=== PATIENT | female | born 1960 | race Caucasian/White ===

== ENCOUNTER → 2020-01-05 11:50 | Outpatient (BNVA) | payer MEDICARE, OTHER, SELFPAY | PROVIDERS: Family Provider Nurse Practitioner; PCP Nurse Practitioner; Visit Provider Nurse Practitioner | DX: E11.65 Type 2 diabetes mellitus with hyperglycemia (principal); Z79.4 Long term (current) use of insulin; M10.9 Gout, unspecified; G47.33 Obstructive sleep apnea (adult) (pediatric) | CPT/HCPCS: 80053; 81003; 83036; 84550 ==

== ENCOUNTER 2020-01-21 20:00 | Outpatient (CLI) | payer MEDICARE, OTHER, SELFPAY | END 2020-01-21 20:01 | disposition home or self-care (01) | LOC: SLEEP 01-22 09:19 | PROVIDERS: Family Provider Nurse Practitioner; PCP Nurse Practitioner; Visit Provider Nurse Practitioner | DX: G47.33 Obstructive sleep apnea (adult) (pediatric) (principal) | CPT/HCPCS: 95810; 95811 ==

== ENCOUNTER 2020-03-21 09:30 | Outpatient (CLI) | payer MEDICARE, OTHER, SELFPAY ==
--- NOTE | 2020-03-21 09:43 | USCV_ITS ---
Deneen Anaya Age: 59 Gender: F : 1960 Exam Date: 03/21/2020 09:37 Ordering Phys: Fabricio Singleton MD ([email or web address]) Technologist: Liset Tariq Exam Location: [facility] [place] Indication: STENOSIS Risk Factors: Previous Vascular Surgery: Right Brachial BP: / Left Brachial BP: / Right Left Velocity (cm/s) Spectral Plaque Velocity (cm/s) Spectral Plaque Syst/Diast Broadening Syst/Diast Broadening 100.30/20.90 Prox CCA 93.70 / 18.70 102.50/27.60 Mid CCA 102.50/ 17.60 88.20/ 26.50 Distal CCA 87.10 / 22.10 71.70/ 22.10 Prox ICA 100.30/ 25.40 90.40/ 30.90 Mid ICA 115.80/ 34.20 69.50/ 27.60 Distal ICA 141.10/ 35.30 130.10 ECA 105.80 0.88 ICA/CCA 1.38 Antegrade Vertebral Antegrade 52.90/ 20.90 cm/s 59.50/ 14.30 cm/s Tri Subclavian Tri 180.2 202.0 0 0 FINDINGS Intimal thickening in the common carotid and internal carotid arteries bilaterally. Normal Doppler flow velocities. Moderate to heavy heterogeneous plaques at the left bifurcation and internal carotid artery Intimal thickening and minimal plaques at the right bifurcation and internal carotid artery CONCLUSIONS Moderate to heavy heterogeneous plaques at the left bifurcation and internal carotid artery with a velocity elevation consistent with a 16 to 49% stenosis Intimal thickening and minimal plaque in the right ICA and bifurcation. Dr Emely Carlson MD FAC (Electronically Signed) Final Date: 21 Mar 2020 17:58 S
== END 2020-03-21 09:31 | disposition home or self-care (01) ==
LOC: RAD 09:34
PROVIDERS: Family Provider Nurse Practitioner; PCP Nurse Practitioner; Visit Provider Internal Medicine Cardiovascular Disease
DX: I65.23 Occlusion and stenosis of bilateral carotid arteries (principal)
CPT/HCPCS: 93880

== ENCOUNTER 2020-03-31 08:27 | Outpatient (CLI) | payer MEDICARE, OTHER, SELFPAY ==
[2020-03-31 09:13] LABS: Add Urine Microscopic? NO
[2020-03-31 09:38] LABS: Alanine Aminotransferase 54 U/L (0-33); Albumin Level 4.6 g/dL (3.5-5.2); Alkaline Phosphatase 86 IU/L (35-105); Anion Gap 17.1 (5-19); Aspartate Amino Transferase 71 U/L (0-32); Blood Urea Nitrogen 12 mg/dL (6-20); Calcium 9.6 mg/dL (8.5-10.5); Carbon Dioxide 29 mmol/L (22-29); Chloride 99 mmol/L (98-107); Globulin 3.2 g/dL (1.3-4.6); Glomerular Filtration Rate 73.9 mL/min (90-130); Glucose 203 mg/dL (65-115); Osmolality Calculated 292 mOsm/kg (285-295); Potassium 5.1 mmol/L (3.5-5.1); Sodium 140 mmol/L (136-145); Total Bilirubin 0.3 mg/dL (0.15-1.2); Total Protein 7.8 g/dL (6.6-8.7)
[2020-03-31 09:39] LABS: Bilirubin Urine Neg (NEGATIVE); Blood Urine Neg (Negative); Glucose Urine UA Norm (Normal); Ketones Urine Negative (Negative); Leukocyte Esterase Urine Negative (Negative); Nitrate Urine Negative (Negative); Protein Urine Neg (Negative); Urine Appearance Clear (CLEAR); Urine Color Yellow (Yellow); Urobilinogen Urine Norm (Negative)
[2020-03-31 09:40] LABS: Estmated Average Glucose 226; Hemoglobin A1C 9.5 % (4.0-6.0)
[2020-03-31 09:51] LABS: Creatinine Urine, Random 110 mg/dL (28-217); Microalbumin Random Urine 5 ug/dL (0-20)
[2020-03-31 10:01] LABS: Microalbum Creatinine Ratio Ur 45 mg/dL (0-20)
== END 2020-03-31 08:28 | disposition home or self-care (01) ==
LOC: LAB 08:34
PROVIDERS: Family Provider Nurse Practitioner; PCP Nurse Practitioner; Visit Provider Nurse Practitioner
DX: E11.65 Type 2 diabetes mellitus with hyperglycemia (principal); Z79.4 Long term (current) use of insulin
CPT/HCPCS: 80053; 81003; 82044; 83036

== ENCOUNTER → 2020-04-04 11:49 | Outpatient (BNVA) | payer MEDICARE, OTHER, SELFPAY | PROVIDERS: Family Provider Nurse Practitioner; PCP Nurse Practitioner; Visit Provider Nurse Practitioner | DX: I10 Essential (primary) hypertension (principal); E11.65 Type 2 diabetes mellitus with hyperglycemia; Z79.4 Long term (current) use of insulin; M54.16 Radiculopathy, lumbar region; M10.371 Gout due to renal impairment, right ankle and foot | CPT/HCPCS: 71046; 82150; 83690 ==

== ENCOUNTER 2020-05-08 16:11 | Emergency (ER) | payer MEDICARE, OTHER, SELFPAY ==
[2020-05-08] VITALS (7 sets, daily range): BP systolic 129–146; BP diastolic 59–84; PULSE 69–80; RESP 10–18; TEMP 36.1; O2SAT 92–135; BMI 31.6
--- NOTE | 2020-05-08 16:37 | CTR_ITS ---
PROCEDURE INFORMATION: Exam: CT Angiography Chest With Contrast Exam date and time: 05/08/2020 4:56 PM Age: 59 years old Clinical indication: Chest pain; Type not specified; Additional info: Pe TECHNIQUE: Imaging protocol: Computed tomographic angiography of the chest with intravenous contrast. 3D rendering: MIP and/or 3D reconstructed images were created by the technologist. Radiation optimization: All CT scans at this facility use at least one of these dose optimization techniques: automated exposure control; mA and/or kV adjustment per patient size (includes targeted exams where dose is matched to clinical indication); or iterative reconstruction. Contrast material: OMNI 350; Contrast volume: 95 ml; Contrast route: INTRAVENOUS (IV); COMPARISON: CR (CHEST, ) 05/08/2020 4:52 PM RADIATION DOSE METRICS: Total DLP (mGy-cm): 626.44 FINDINGS: Pulmonary arteries: Normal. No pulmonary emboli. Aorta: Unremarkable. No aortic aneurysm. No aortic dissection. Lungs: Unremarkable. No consolidation. No masses. There are mild emphysematous changes. Pleural space: Unremarkable. No pneumothorax. No pleural effusion. Heart: Unremarkable. No cardiomegaly. No pericardial effusion. Lymph nodes: Unremarkable. No enlarged lymph nodes. Liver: There is fatty infiltration liver. Bones/joints: Unremarkable. No acute fracture. Soft tissues: Unremarkable. CT/CT angio chest PE protcl [id number] IMPRESSION: No acute findings. Radiation Dose CTDIVOL = (mGy): DLP = 626.44 (mGy-cm)
--- NOTE | 2020-05-08 16:37 | XRR_ITS ---
PROCEDURE INFORMATION: Exam: XR Chest, 1 View Exam date and time: 05/08/2020 4:39 PM Age: 59 years old Clinical indication: Dyspnea; Additional info: Cp TECHNIQUE: Imaging protocol: XR of the chest Views: 1 view. COMPARISON: No relevant prior studies available. FINDINGS: Lungs: There is increased density in the left lung base compatible with atelectasis versus pneumonic infiltrate. The right lung is clear. The vascularity is within normal limits. There is scattered calcified granulomata. Pleural space: There is trace left pleural effusion or pleural thickening. No pneumothorax. Heart/Mediastinum: Unremarkable. No cardiomegaly. Bones/joints: No acute abnormality. XR/XR chest 1V portable [id number] IMPRESSION: There is increased density in the left lung base compatible with atelectasis versus pneumonic infiltrate.
--- NOTE | 2020-05-08 16:39 | W.ED.CHESTPA ---
Documented by User: Mark Houston DO 05/08/20 16:43 HPI - Chest Pain General: Chief Complaint: Chest Pain Stated Complaint: cp Time Seen by Provider: 05/08/20 16:20 History of Present Illness: HPI narrative: Patient states she woke up approximately 3:00 this morning and had a single sharp chest pain in the middle of her chest. She states that the pain was so bad that it dropped her to her knees. Patient states the pain has lasted throughout the day. She has not noticed anything that makes the pain worse or better. She does feel somewhat short of breath, nauseated, and diaphoretic. MD complaint: chest pain Pertinent past history: prior IN Onset (ago): hour(s) Timing of current episode: constant Prior episodes: No Onset: awoke with symptoms Pain location: substernal Pain radiation: none Severity: severe Quality: sharp Relieving factors: nothing Exacerbating factors: nothing Review of Systems General: Reports: 10 or more systems reviewed and unremarkable except in HPI and below Card: Reports: chest pain PFSH ED PFSH: Medical History Anxiety Cardiomyopathy in diseases classified elsewhere Controlled type 2 diabetes mellitus with hyperglycemia, with long-term current use of insulin Essential (primary) hypertension Hypersomnia Mixed hyperlipidemia NICKO (obstructive sleep apnea) Radiculopathy, lumbar region Surgical History History of angioplasty History of section History of cholecystectomy History of colonoscopy History of lumpectomy of left breast History of tonsillectomy History of tubal ligation S/P LASIK surgery Family History Mother Cancer CAD (coronary artery disease) Father CAD (coronary artery disease) Social History Smoking and tobacco status: former smoker Second hand smoke exposure: No Smoking risk assessment/counseling performed?: No Alcohol intake: current Alcohol intake frequency: holidays/special occasions only Desire information about alcohol rehabilitation?: No Counseling given: No Desire information about substance/drug rehabilitation?: No Counseling given: No Caregiver/support person: No Lives independently: Yes Marital status: Number of children: 5 History of recent travel: No Current gender identity: Female Physical Exam Const: COMMON NORMALS: healthy appearing and well nourished GENERAL APPEARANCE: cooperative, well developed and in distress HENMT: COMMON NORMALS: normocephalic and atraumatic HEAD & SCALP: normal to inspection, normocephalic and atraumatic Eye: GENERAL EYE: appearance normal, both eyes and all related structures Neck/C-Spine: COMMON NORMALS: full ROM, no lymphadenopathy and no meningeal signs GENERAL: Yes normal visual inspection CERVICAL SPINE: Yes cervical ROM normal and Yes normal cervical lordosis Chest: COMMONS NORMALS: normal inspection of the chest and normal palpation of entire chest wall Resp: COMMON NORMALS: normal respiratory effort, clear to auscultation bilaterally and percussion normal AUSCULTATION: clear to auscultation bilaterally PERCUSSION: percussion normal Cardio: COMMON NORMALS: regular rate, regular rhythm, S1 normal heart sound present and S2 normal heart sound present JUGULAR VENOUS DISTENTION: no JVD PALPATION: normal PMI RATE: regular rate RHYTHM: regular rhythm HEART SOUNDS: S1 normal heart sound present and S2 normal heart sound present GI: COMMON NORMALS: Soft to palpation and No hepatosplenomegaly present INSPECTION: Yes normal to inspection PALPATION: Yes Soft to palpation and Yes No hepatosplenomegaly present PERCUSSION: normal to percussion : COMMON NORMALS: Yes no CVA tenderness BLADDER/KIDNEY EXAM: Yes no CVA tenderness Back/Pelvis: COMMON NORMALS: no CVA tenderness, thoracic and lumbar spine normal to inspection and thoraco-lumbar ROM normal Extremity: COMMON NORMALS: normal to inspection, full ROM and capillary refill normal Neuro: MENINGEAL SIGNS: Yes no meningeal signs Skin: COMMON NORMALS: no rashes or lesions noted, no wounds and turgor normal GENERAL SKIN EXAM: no rashes or lesions noted, elasticity normal and turgor normal LESIONS: no lesions RASHES: no rashes TRAUMA: no lacerations or abrasions HAIR: normal NAILS: normal Course Vital Signs: Vital signs: Vital Signs Temperature 96.9 F L 05/08/20 16:14 Pulse Rate 70 05/08/20 21:42 Respiratory Rate 14 05/08/20 21:42 Blood Pressure 145/78 05/08/20 20:19 Pulse Oximetry 135 H 05/08/20 21:42 MDM - Chest Pain Lab Data: Labs: Lab Results 05/08/20 05/08/20 05/08/20 Range/Units 16:50 16:50 16:50 WBC 8.1 (4.0-10.0) 10^3/ uL RBC 4.74 (4.1-5.3) 10^6/u L Hgb 13.4 (11.5-15.3) g/dL Hct 42.8 (37.0-47.0) % MCV 90.3 (81-99) fL MCH 28.3 (28.0-34.0) pg MCHC 31.3 (30.0-36.0) g/dL RDW 14.6 (12.1-15.1) % Plt Count 169 (130-400) 10^3/c mm MPV 12.4 H (7.4-10.4) fL Neut % (Auto) 38.7 % Lymph % (Auto) 50.4 % Routt % (Auto) 6.7 % Eos % (Auto) 3.5 % Baso % (Auto) 0.5 % Neut # (Auto) 3.1 (1.8-7.7) 10^3/u L Lymph # (Auto) 4.1 (0.8-4.8) 10^3/u L Routt # (Auto) 0.5 (0.2-0.9) 10^3/u L Eos # (Auto) 0.3 (0.0-0.8) 10^3/u L Baso # (Auto) 0.0 (0.0-0.1) 10^3/u L Nucleated RBC % (a uto) 0 % Nucleated RBCs # 0.0 /100WBC PT 12.70 (10.5-13.3) SECO NDS INR 0.93 (0.8-1.2) D-Dimer 0.28 (0-0.59) ug/mIFE U Sodium 140 (136-145) mmol/L Potassium 3.4 L (3.5-5.1) mmol/L Chloride 96 L (98-107) mmol/L Carbon Dioxide 27 (22-29) mmol/L Anion Gap 20.4 H (5-19) BUN 14 (6-20) mg/dL Creatinine 0.9 (0.5-0.9) mg/dL GFR Calculation 64.5 L (90-130) mL/min Glucose 221 H (65-115) mg/dL Calculated Osmolal ity 293 (285-295) mOsm/k g Calcium 9.6 (8.5-10.5) mg/dL Total Bilirubin 0.3 (0.15-1.2) mg/dL AST 58 H (0-32) U/L ALT 55 H (0-33) U/L Alkaline Phosphata se 104 (35-105) IU/L Troponin T Baselin e (0-10) ng/L Troponin T 120 Min [place] (0-10) ng/L Delta Troponin T (0-10) ABS# NT-Pro-B Natriuret Pep (0-125) pg/mL Total Protein 7.2 (6.6-8.7) g/dL Albumin 4.7 (3.5-5.2) g/dL Globulin 2.5 (1.3-4.6) g/dL Lipase 40 (13-60) U/L Urine Color (Yellow) Urine Appearance (CLEAR) Urine pH (5-7) Ur Specific Gravit y (1.005-1.030) Urine Protein (Negative) Urine Glucose (UA) (Normal) Urine Ketones (Negative) Urine Blood (Negative) Urine Nitrate (Negative) Urine Bilirubin (NEGATIVE) Urine Urobilinogen (Negative) mg/dL Ur Leukocyte Christin ase (Negative) Urine RBC (0-2) /hpf Urine WBC (0-5) /hpf Ur Squamous Epith Cells (0-5) Urine Bacteria (NONE) Urine Mucus 05/08/20 05/08/20 05/08/20 Range/Units 16:50 17:00 18:56 WBC (4.0-10.0) 10^3/ uL RBC (4.1-5.3) 10^6/u L Hgb (11.5-15.3) g/dL Hct (37.0-47.0) % MCV (81-99) fL MCH (28.0-34.0) pg MCHC (30.0-36.0) g/dL RDW (12.1-15.1) % Plt Count (130-400) 10^3/c mm MPV (7.4-10.4) fL Neut % (Auto) % Lymph % (Auto) % Routt % (Auto) % Eos % (Auto) % Baso % (Auto) % Neut # (Auto) (1.8-7.7) 10^3/u L Lymph # (Auto) (0.8-4.8) 10^3/u L Routt # (Auto) (0.2-0.9) 10^3/u L Eos # (Auto) (0.0-0.8) 10^3/u L Baso # (Auto) (0.0-0.1) 10^3/u L Nucleated RBC % (a uto) % Nucleated RBCs # /100WBC PT (10.5-13.3) SECO NDS INR (0.8-1.2) D-Dimer (0-0.59) ug/mIFE U Sodium (136-145) mmol/L Potassium (3.5-5.1) mmol/L Chloride (98-107) mmol/L Carbon Dioxide (22-29) mmol/L Anion Gap (5-19) BUN (6-20) mg/dL Creatinine (0.5-0.9) mg/dL GFR Calculation (90-130) mL/min Glucose (65-115) mg/dL Calculated Osmolal ity (285-295) mOsm/k g Calcium (8.5-10.5) mg/dL Total Bilirubin (0.15-1.2) mg/dL AST (0-32) U/L ALT (0-33) U/L Alkaline Phosphata se (35-105) IU/L Troponin T Baselin e 6 (0-10) ng/L Troponin T 120 Min [place] 6.45 (0-10) ng/L Delta Troponin T 0.45 (0-10) ABS# NT-Pro-B Natriuret Pep (0-125) pg/mL Total Protein (6.6-8.7) g/dL Albumin (3.5-5.2) g/dL Globulin (1.3-4.6) g/dL Lipase (13-60) U/L Urine Color Yellow (Yellow) Urine Appearance Sl hazy (CLEAR) Urine pH 6 (5-7) Ur Specific Gravit y 1.010 (1.005-1.030) Urine Protein Neg (Negative) Urine Glucose (UA) 4+ H (Normal) Urine Ketones Negative (Negative) Urine Blood Neg (Negative) Urine Nitrate Negative (Negative) Urine Bilirubin Neg (NEGATIVE) Urine Urobilinogen Norm (Negative) mg/dL Ur Leukocyte Christin ase Trace H (Negative) Urine RBC 0-4 H (0-2) /hpf Urine WBC 5-10 H (0-5) /hpf Ur Squamous Epith Cells 10-15 H (0-5) Urine Bacteria 2+ H (NONE) Urine Mucus Trace 05/08/20 Range/Units 18:56 WBC (4.0-10.0) 10^3/ uL RBC (4.1-5.3) 10^6/u L Hgb (11.5-15.3) g/dL Hct (37.0-47.0) % MCV (81-99) fL MCH (28.0-34.0) pg MCHC (30.0-36.0) g/dL RDW (12.1-15.1) % Plt Count (130-400) 10^3/c mm MPV (7.4-10.4) fL Neut % (Auto) % Lymph % (Auto) % Routt % (Auto) % Eos % (Auto) % Baso % (Auto) % Neut # (Auto) (1.8-7.7) 10^3/u L Lymph # (Auto) (0.8-4.8) 10^3/u L Routt # (Auto) (0.2-0.9) 10^3/u L Eos # (Auto) (0.0-0.8) 10^3/u L Baso # (Auto) (0.0-0.1) 10^3/u L Nucleated RBC % (a uto) % Nucleated RBCs # /100WBC PT (10.5-13.3) SECO NDS INR (0.8-1.2) D-Dimer (0-0.59) ug/mIFE U Sodium (136-145) mmol/L Potassium (3.5-5.1) mmol/L Chloride (98-107) mmol/L Carbon Dioxide (22-29) mmol/L Anion Gap (5-19) BUN (6-20) mg/dL Creatinine (0.5-0.9) mg/dL GFR Calculation (90-130) mL/min Glucose (65-115) mg/dL Calculated Osmolal ity (285-295) mOsm/k g Calcium (8.5-10.5) mg/dL Total Bilirubin (0.15-1.2) mg/dL AST (0-32) U/L ALT (0-33) U/L Alkaline Phosphata se (35-105) IU/L Troponin T Baselin e (0-10) ng/L Troponin T 120 Min [place] (0-10) ng/L Delta Troponin T (0-10) ABS# NT-Pro-B Natriuret Pep 13 (0-125) pg/mL Total Protein (6.6-8.7) g/dL Albumin (3.5-5.2) g/dL Globulin (1.3-4.6) g/dL Lipase (13-60) U/L Urine Color (Yellow) Urine Appearance (CLEAR) Urine pH (5-7) Ur Specific Gravit y (1.005-1.030) Urine Protein (Negative) Urine Glucose (UA) (Normal) Urine Ketones (Negative) Urine Blood (Negative) Urine Nitrate (Negative) Urine Bilirubin (NEGATIVE) Urine Urobilinogen (Negative) mg/dL Ur Leukocyte Christin ase (Negative) Urine RBC (0-2) /hpf Urine WBC (0-5) /hpf Ur Squamous Epith Cells (0-5) Urine Bacteria (NONE) Urine Mucus Discharge Plan Discharge Patient Disposition: Home, Self-Care Clinical Impression: Chest pain Qualifiers: Chest pain type: unspecified Qualified Code(s): R07.9 - Chest pain, unspecified Condition: Stable Prescriptions: New ketorolac 10 mg tablet 10 mg PO Q8H 3 Days Qty: 9 RF: 0 No Action allopurinol 300 mg tablet 300 mg PO BID Qty: 180 RF: 1 carvedilol 6.25 mg tablet 6.25 mg PO DAILY Qty: 90 RF: 0 furosemide 40 mg tablet 40 mg PO BID Qty: 180 RF: 0 insulin aspart U-100 [Novolog Flexpen U-100 Insulin] 100 unit/mL (3 mL) insulin pen See Rx Instructions SUBCUT TID Qty: 15 RF: 0 insulin detemir U-100 100 unit/mL (3 mL) insulin pen 60 unit SUBCUT BID Qty: 15 RF: 2 Jardiance 10 mg tablet 10 mg PO QAM Qty: 90 RF: 0 potassium chloride 20 mEq tablet extended release 20 meq PO BID Qty: 180 RF: 0 duloxetine 30 mg capsule,delayed release(DR/EC) 90 mg PO DAILY Qty: 270 RF: 0 (DME) lancets [Fingerstix Lancets] Misc See Rx Instructions .ROUTE .MEDSUPPLY Qty: 100 RF: 5 tramadol 50 mg tablet 50 mg PO TID PRN (Reason: Pain) RF: 0 aspirin [Adult Aspirin Regimen] 81 mg tablet,delayed release (DR/EC) 81 mg PO DAILY RF: 0 turmeric root extract 500 mg capsule 1,000 mg PO TID RF: 0 magnesium hydroxide 400 mg (170 mg magnesium) tablet,chewable 400 mg PO DAILY RF: 0 omega-3 fatty acids 500 mg capsule 500 mg PO DAILY RF: 0 vitamin E (dl, acetate) 400 unit capsule 400 unit PO DAILY RF: 0 pregabalin [Lyrica] 150 mg capsule 150 mg PO TID RF: 0 Trulicity 1.5 mg/0.5 mL pen injector 1.5 mg SUBCUT .weekly Qty: 6 RF: 0 tizanidine 2 mg tablet 2 mg PO Q8H PRN (Reason: muscle spasticity) Qty: 180 RF: 0 (DME) CPAP Qty: 1 RF: 0 atorvastatin 40 mg tablet 40 mg PO DAILY Qty: 90 RF: 3 Discharge Orders: Discharge Order (Routine); Ordered 05/08/20 Ordered By: Giovany Cardenas Referrals: Nette Morocho, [employer] [Primary Care Provider] - 1-3 days Discharge Diet: Advance as tolerated Discharge Activity: Increase activity as tolerated Patient Instructions: Chest Pain (ED) Activity Restrictions/Additional Instructions: Return for worsening chest discomfort, dizziness, shortness of breath, other concerning symptoms. Discharge Date/Time: 05/08/20 21:47 Coding Level of Care Code ED Medical Office Assistant Instructor for Chg Fwd Exam Comprehensive Documented by User: Giovany Cardenas DO 05/08/20 23:21 HPI - Chest Pain General: Chief Complaint: Chest Pain Stated Complaint: cp Time Seen by Provider: 05/08/20 16:20 [facility] ED PFSH: Medical History Anxiety Cardiomyopathy in diseases classified elsewhere Controlled type 2 diabetes mellitus with hyperglycemia, with long-term current use of insulin Essential (primary) hypertension Hypersomnia Mixed hyperlipidemia NICKO (obstructive sleep apnea) Radiculopathy, lumbar region Surgical History History of angioplasty History of section History of cholecystectomy History of colonoscopy History of lumpectomy of left breast History of tonsillectomy History of tubal ligation S/P LASIK surgery Family History Mother Cancer CAD (coronary artery disease) Father CAD (coronary artery disease) Social History Smoking and tobacco status: former smoker Second hand smoke exposure: No Smoking risk assessment/counseling performed?: No Alcohol intake: current Alcohol intake frequency: holidays/special occasions only Desire information about alcohol rehabilitation?: No Counseling given: No Desire information about substance/drug rehabilitation?: No Counseling given: No Caregiver/support person: No Lives independently: Yes Marital status: Number of children: 5 History of recent travel: No Current gender identity: Female Course Vital Signs: Vital signs: Vital Signs Temperature 96.9 F L 05/08/20 16:14 Pulse Rate 70 05/08/20 21:42 Respiratory Rate 14 05/08/20 21:42 Blood Pressure 145/78 05/08/20 20:19 Pulse Oximetry 135 H 05/08/20 21:42 MDM - Chest Pain MDM Narrative: Medical decision making narrative: 59-year-old female. She was checked out to me by Dr. Marrero at shift change. This lady has a history of Takotsubo cardiomyopathy. She experienced a sharp pain between her shoulders radiating anteriorly into her chest early this morning. Has not subsided but has improved. She is mildly short of breath with it. She also reported feeling dizzy transiently. On her previous cath, she had clean coronaries. She has a history of diabetes. Her EKG showed a sinus rhythm without ST change. It was repeated at 2 hours with the same findings. Her troponin did not elevate, and is normal at baseline. Her chest x-ray was essentially normal. CTA of the chest was performed and was normal. Her d-dimer was negative. Her BNP was 12. She was not completely asymptomatic. She was offered admission continued observation on the monitor and follow-up troponins as well as possible stress test. She declined this at this point. She states she will come back if she gets worse. She knows the risks. Lab Data: Attestation: I reviewed the patient's lab results. Labs: Lab Results 05/08/20 05/08/20 05/08/20 Range/Units 16:50 16:50 16:50 WBC 8.1 (4.0-10.0) 10^3/ uL RBC 4.74 (4.1-5.3) 10^6/u L Hgb 13.4 (11.5-15.3) g/dL Hct 42.8 (37.0-47.0) % MCV 90.3 (81-99) fL MCH 28.3 (28.0-34.0) pg MCHC 31.3 (30.0-36.0) g/dL RDW 14.6 (12.1-15.1) % Plt Count 169 (130-400) 10^3/c mm MPV 12.4 H (7.4-10.4) fL Neut % (Auto) 38.7 % Lymph % (Auto) 50.4 % Routt % (Auto) 6.7 % Eos % (Auto) 3.5 % Baso % (Auto) 0.5 % Neut # (Auto) 3.1 (1.8-7.7) 10^3/u L Lymph # (Auto) 4.1 (0.8-4.8) 10^3/u L Routt # (Auto) 0.5 (0.2-0.9) 10^3/u L Eos # (Auto) 0.3 (0.0-0.8) 10^3/u L Baso # (Auto) 0.0 (0.0-0.1) 10^3/u L Nucleated RBC % (a uto) 0 % Nucleated RBCs # 0.0 /100WBC PT 12.70 (10.5-13.3) SECO NDS INR 0.93 (0.8-1.2) D-Dimer 0.28 (0-0.59) ug/mIFE U Sodium 140 (136-145) mmol/L Potassium 3.4 L (3.5-5.1) mmol/L Chloride 96 L (98-107) mmol/L Carbon Dioxide 27 (22-29) mmol/L Anion Gap 20.4 H (5-19) BUN 14 (6-20) mg/dL Creatinine 0.9 (0.5-0.9) mg/dL GFR Calculation 64.5 L (90-130) mL/min Glucose 221 H (65-115) mg/dL Calculated Osmolal ity 293 (285-295) mOsm/k g Calcium 9.6 (8.5-10.5) mg/dL Total Bilirubin 0.3 (0.15-1.2) mg/dL AST 58 H (0-32) U/L ALT 55 H (0-33) U/L Alkaline Phosphata se 104 (35-105) IU/L Troponin T Baselin e (0-10) ng/L Troponin T 120 Min [place] (0-10) ng/L Delta Troponin T (0-10) ABS# NT-Pro-B Natriuret Pep (0-125) pg/mL Total Protein 7.2 (6.6-8.7) g/dL Albumin 4.7 (3.5-5.2) g/dL Globulin 2.5 (1.3-4.6) g/dL Lipase 40 (13-60) U/L Urine Color (Yellow) Urine Appearance (CLEAR) Urine pH (5-7) Ur Specific Gravit y (1.005-1.030) Urine Protein (Negative) Urine Glucose (UA) (Normal) Urine Ketones (Negative) Urine Blood (Negative) Urine Nitrate (Negative) Urine Bilirubin (NEGATIVE) Urine Urobilinogen (Negative) mg/dL Ur Leukocyte Christin ase (Negative) Urine RBC (0-2) /hpf Urine WBC (0-5) /hpf Ur Squamous Epith Cells (0-5) Urine Bacteria (NONE) Urine Mucus 05/08/20 05/08/20 05/08/20 Range/Units 16:50 17:00 18:56 WBC (4.0-10.0) 10^3/ uL RBC (4.1-5.3) 10^6/u L Hgb (11.5-15.3) g/dL Hct (37.0-47.0) % MCV (81-99) fL MCH (28.0-34.0) pg MCHC (30.0-36.0) g/dL RDW (12.1-15.1) % Plt Count (130-400) 10^3/c mm MPV (7.4-10.4) fL Neut % (Auto) % Lymph % (Auto) % Routt % (Auto) % Eos % (Auto) % Baso % (Auto) % Neut # (Auto) (1.8-7.7) 10^3/u L Lymph # (Auto) (0.8-4.8) 10^3/u L Routt # (Auto) (0.2-0.9) 10^3/u L Eos # (Auto) (0.0-0.8) 10^3/u L Baso # (Auto) (0.0-0.1) 10^3/u L Nucleated RBC % (a uto) % Nucleated RBCs # /100WBC PT (10.5-13.3) SECO NDS INR (0.8-1.2) D-Dimer (0-0.59) ug/mIFE U Sodium (136-145) mmol/L Potassium (3.5-5.1) mmol/L Chloride (98-107) mmol/L Carbon Dioxide (22-29) mmol/L Anion Gap (5-19) BUN (6-20) mg/dL Creatinine (0.5-0.9) mg/dL GFR Calculation (90-130) mL/min Glucose (65-115) mg/dL Calculated Osmolal ity (285-295) mOsm/k g Calcium (8.5-10.5) mg/dL Total Bilirubin (0.15-1.2) mg/dL AST (0-32) U/L ALT (0-33) U/L Alkaline Phosphata se (35-105) IU/L Troponin T Baselin e 6 (0-10) ng/L Troponin T 120 Min [place] 6.45 (0-10) ng/L Delta Troponin T 0.45 (0-10) ABS# NT-Pro-B Natriuret Pep (0-125) pg/mL Total Protein (6.6-8.7) g/dL Albumin (3.5-5.2) g/dL Globulin (1.3-4.6) g/dL Lipase (13-60) U/L Urine Color Yellow (Yellow) Urine Appearance Sl hazy (CLEAR) Urine pH 6 (5-7) Ur Specific Gravit y 1.010 (1.005-1.030) Urine Protein Neg (Negative) Urine Glucose (UA) 4+ H (Normal) Urine Ketones Negative (Negative) Urine Blood Neg (Negative) Urine Nitrate Negative (Negative) Urine Bilirubin Neg (NEGATIVE) Urine Urobilinogen Norm (Negative) mg/dL Ur Leukocyte Christin ase Trace H (Negative) Urine RBC 0-4 H (0-2) /hpf Urine WBC 5-10 H (0-5) /hpf Ur Squamous Epith Cells 10-15 H (0-5) Urine Bacteria 2+ H (NONE) Urine Mucus Trace 05/08/20 Range/Units 18:56 WBC (4.0-10.0) 10^3/ uL RBC (4.1-5.3) 10^6/u L Hgb (11.5-15.3) g/dL Hct (37.0-47.0) % MCV (81-99) fL MCH (28.0-34.0) pg MCHC (30.0-36.0) g/dL RDW (12.1-15.1) % Plt Count (130-400) 10^3/c mm MPV (7.4-10.4) fL Neut % (Auto) % Lymph % (Auto) % Routt % (Auto) % Eos % (Auto) % Baso % (Auto) % Neut # (Auto) (1.8-7.7) 10^3/u L Lymph # (Auto) (0.8-4.8) 10^3/u L Routt # (Auto) (0.2-0.9) 10^3/u L Eos # (Auto) (0.0-0.8) 10^3/u L Baso # (Auto) (0.0-0.1) 10^3/u L Nucleated RBC % (a uto) % Nucleated RBCs # /100WBC PT (10.5-13.3) SECO NDS INR (0.8-1.2) D-Dimer (0-0.59) ug/mIFE U Sodium (136-145) mmol/L Potassium (3.5-5.1) mmol/L Chloride (98-107) mmol/L Carbon Dioxide (22-29) mmol/L Anion Gap (5-19) BUN (6-20) mg/dL Creatinine (0.5-0.9) mg/dL GFR Calculation (90-130) mL/min Glucose (65-115) mg/dL Calculated Osmolal ity (285-295) mOsm/k g Calcium (8.5-10.5) mg/dL Total Bilirubin (0.15-1.2) mg/dL AST (0-32) U/L ALT (0-33) U/L Alkaline Phosphata se (35-105) IU/L Troponin T Baselin e (0-10) ng/L Troponin T 120 Min [place] (0-10) ng/L Delta Troponin T (0-10) ABS# NT-Pro-B Natriuret Pep 13 (0-125) pg/mL Total Protein (6.6-8.7) g/dL Albumin (3.5-5.2) g/dL Globulin (1.3-4.6) g/dL Lipase (13-60) U/L Urine Color (Yellow) Urine Appearance (CLEAR) Urine pH (5-7) Ur Specific Gravit y (1.005-1.030) Urine Protein (Negative) Urine Glucose (UA) (Normal) Urine Ketones (Negative) Urine Blood (Negative) Urine Nitrate (Negative) Urine Bilirubin (NEGATIVE) Urine Urobilinogen (Negative) mg/dL Ur Leukocyte Christin ase (Negative) Urine RBC (0-2) /hpf Urine WBC (0-5) /hpf Ur Squamous Epith Cells (0-5) Urine Bacteria (NONE) Urine Mucus Discharge Plan Discharge Patient Disposition: Home, Self-Care Clinical Impression: Chest pain Qualifiers: Chest pain type: unspecified Qualified Code(s): R07.9 - Chest pain, unspecified Condition: Stable Prescriptions: New ketorolac 10 mg tablet 10 mg PO Q8H 3 Days Qty: 9 RF: 0 No Action allopurinol 300 mg tablet 300 mg PO BID Qty: 180 RF: 1 carvedilol 6.25 mg tablet 6.25 mg PO DAILY Qty: 90 RF: 0 furosemide 40 mg tablet 40 mg PO BID Qty: 180 RF: 0 insulin aspart U-100 [Novolog Flexpen U-100 Insulin] 100 unit/mL (3 mL) insulin pen See Rx Instructions SUBCUT TID Qty: 15 RF: 0 insulin detemir U-100 100 unit/mL (3 mL) insulin pen 60 unit SUBCUT BID Qty: 15 RF: 2 Jardiance 10 mg tablet 10 mg PO QAM Qty: 90 RF: 0 potassium chloride 20 mEq tablet extended release 20 meq PO BID Qty: 180 RF: 0 duloxetine 30 mg capsule,delayed release(DR/EC) 90 mg PO DAILY Qty: 270 RF: 0 (DME) lancets [Fingerstix Lancets] Misc See Rx Instructions .ROUTE .MEDSUPPLY Qty: 100 RF: 5 tramadol 50 mg tablet 50 mg PO TID PRN (Reason: Pain) RF: 0 aspirin [Adult Aspirin Regimen] 81 mg tablet,delayed release (DR/EC) 81 mg PO DAILY RF: 0 turmeric root extract 500 mg capsule 1,000 mg PO TID RF: 0 magnesium hydroxide 400 mg (170 mg magnesium) tablet,chewable 400 mg PO DAILY RF: 0 omega-3 fatty acids 500 mg capsule 500 mg PO DAILY RF: 0 vitamin E (dl, acetate) 400 unit capsule 400 unit PO DAILY RF: 0 pregabalin [Lyrica] 150 mg capsule 150 mg PO TID RF: 0 Trulicity 1.5 mg/0.5 mL pen injector 1.5 mg SUBCUT .weekly Qty: 6 RF: 0 tizanidine 2 mg tablet 2 mg PO Q8H PRN (Reason: muscle spasticity) Qty: 180 RF: 0 (DME) CPAP Qty: 1 RF: 0 atorvastatin 40 mg tablet 40 mg PO DAILY Qty: 90 RF: 3 Discharge Orders: Discharge Order (Routine); Ordered 05/08/20 Ordered By: Giovany Cardenas Referrals: Nette Morocho, [employer] [Primary Care Provider] - 1-3 days Discharge Diet: Advance as tolerated Discharge Activity: Increase activity as tolerated Patient Instructions: Chest Pain (ED) Activity Restrictions/Additional Instructions: Return for worsening chest discomfort, dizziness, shortness of breath, other concerning symptoms. 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
[2020-05-08 16:57] LABS: Basophils % 0.5 %; Eosinophils # 0.3 10^3/uL (0.0-0.8); Eosinophils % 3.5 %; Hematocrit 42.8 % (37.0-47.0); Hemoglobin 13.4 g/dL (11.5-15.3); Lymphocytes # 4.1 10^3/uL (0.8-4.8); Lymphocytes % 50.4 %; Mean Corpuscular HGB Conc 31.3 g/dL (30.0-36.0); Mean Corpuscular Hemoglobin 28.3 pg (28.0-34.0); Mean Corpuscular Volume 90.3 fL (81-99); Mean Platelet Volume 12.4 fL (7.4-10.4); Monocytes # 0.5 10^3/uL (0.2-0.9); Monocytes % 6.7 %; Neutrophils # 3.1 10^3/uL (1.8-7.7); Neutrophils % 38.7 %; Nucleated Red Blood Cells % 0 %; Platelet Count 169 10^3/cmm (130-400); Red Blood Count 4.74 10^6/uL (4.1-5.3); Red Cell Distribution Width 14.6 % (12.1-15.1); White Blood Count 8.1 10^3/uL (4.0-10.0)
[2020-05-08 17:08] LABS: INR 0.93 (0.8-1.2)
[2020-05-08 17:11] LABS: D Dimer 0.28 ug/mIFEU (0-0.59)
[2020-05-08 17:19] LABS: Alanine Aminotransferase 55 U/L (0-33); Albumin Level 4.7 g/dL (3.5-5.2); Alkaline Phosphatase 104 IU/L (35-105); Anion Gap 20.4 (5-19); Aspartate Amino Transferase 58 U/L (0-32); Blood Urea Nitrogen 14 mg/dL (6-20); Calcium 9.6 mg/dL (8.5-10.5); Carbon Dioxide 27 mmol/L (22-29); Chloride 96 mmol/L (98-107); Globulin 2.5 g/dL (1.3-4.6); Glomerular Filtration Rate 64.5 mL/min (90-130); Glucose 221 mg/dL (65-115); Lipase 40 U/L (13-60); Osmolality Calculated 293 mOsm/kg (285-295); Potassium 3.4 mmol/L (3.5-5.1); Sodium 140 mmol/L (136-145); Total Bilirubin 0.3 mg/dL (0.15-1.2); Total Protein 7.2 g/dL (6.6-8.7)
[2020-05-08 17:21] LABS: Troponin(5th) Baseline 6 ng/L (0-10)
[2020-05-08] MEDS: iohexol 350 mg/mL 100 mL Btl IV (17:33)
[2020-05-08] MEDS: ondansetron 2 mg/ML SDV 2 mL 4 MG IVP (17:35)
[2020-05-08] MEDS: morphine 4 mg/mL SDV 1 mL IVP (17:44)
[2020-05-08 18:27] LABS: Add Urine Microscopic? YES; Bilirubin Urine Neg (NEGATIVE); Blood Urine Neg (Negative); Glucose Urine UA 4+ (Normal); Ketones Urine Negative (Negative); Leukocyte Esterase Urine Trace (Negative); Nitrate Urine Negative (Negative); Protein Urine Neg (Negative); Urine Appearance SL Hazy (CLEAR); Urine Color Yellow (Yellow); Urobilinogen Urine Norm (Negative); pH Urine 6 (5-7)
[2020-05-08 18:28] LABS: RBC Urine 0-4 /hpf (0-2)
[2020-05-08 18:29] LABS: Bacteria Urine 2+
[2020-05-08 18:30] LABS: Add Urine Culture? No; Mucus Urine TRACE
--- NOTE | 2020-05-08 18:37 | ECG_ITS ---
[facility] Test Date: 2020-05-08 Pat Name: Deneen Anaya Department: Room: Gender: Female Hr Advisor: : [id number] Requested By: Mark Boone Order Number: [id number] Steffany MD: Yahaira Florez M.D. Measurements Intervals [place] Rate: 70 P: 56 CA: 149 QRS: 15 QRSD: 98 T: 32 QT: 380 QTc: 411 Interpretive Statements SINUS RHYTHM POSSIBLE LEFT ATRIAL ENLARGEMENT [-0.1mV P WAVE IN V1/V2] Compared to ECG 02/26/2019 20:11:57 No significant changes Electronically Signed On 05-09-2020 18:39:28 CDT by Yahaira Florez M.D. [id number]
[2020-05-08] MEDS: HYDROmorphone 1 mg/mL INJ 1 mL IVP (18:43)
[2020-05-08 19:33] LABS: Troponin 5 2HR 6.45 ng/L (0-10); Troponin 5 2HR Delta 0.45 ABS# (0-10)
[2020-05-08 20:56] LABS: NT Pro B Type Natriuretic Pept 13 pg/mL (0-125)
== END 2020-05-08 21:47 | disposition home or self-care (01) ==
PROVIDERS: Family Medicine; Emergency Provider Emergency Medicine; PCP Nurse Practitioner
DX: R07.9 Chest pain, unspecified (principal); Z79.4 Long term (current) use of insulin; Z79.82 Long term (current) use of aspirin; E11.9 Type 2 diabetes mellitus without complications; I10 Essential (primary) hypertension; E78.2 Mixed hyperlipidemia; Z87.891 Personal history of nicotine dependence
CPT/HCPCS: 12345; 36415; 71045; 71275; 80053; 81001; 83690; 83880; 84484; 85025; 85378; 85610; 93005; 96374; 96375; 99283; 99284; J1170; J2270; J2405; Q9967

== ENCOUNTER 2020-05-12 11:11 | Outpatient (CLI) | payer MEDICARE, OTHER, SELFPAY ==
[2020-05-12 11:51] LABS: Anion Gap 19.5 (5-19); Blood Urea Nitrogen 16 mg/dL (6-20); Calcium 9.7 mg/dL (8.5-10.5); Carbon Dioxide 29 mmol/L (22-29); Chloride 98 mmol/L (98-107); Glomerular Filtration Rate 73.9 mL/min (90-130); Glucose 130 mg/dL (65-115); Magnesium 2.3 mg/dL (1.7-2.3); Osmolality Calculated 292 mOsm/kg (285-295); Potassium 4.5 mmol/L (3.5-5.1); Sodium 142 mmol/L (136-145)
== END 2020-05-12 11:12 | disposition home or self-care (01) ==
LOC: LAB 11:19
PROVIDERS: PCP Nurse Practitioner; Visit Provider Nurse Practitioner
DX: E11.65 Type 2 diabetes mellitus with hyperglycemia (principal); Z79.4 Long term (current) use of insulin
CPT/HCPCS: 36415; 80048; 83735

== ENCOUNTER → 2020-06-27 10:40 | Outpatient (BNVA) | payer MEDICARE, OTHER, SELFPAY | PROVIDERS: PCP Nurse Practitioner; Visit Provider Nurse Practitioner | DX: I10 Essential (primary) hypertension (principal); E11.65 Type 2 diabetes mellitus with hyperglycemia; Z79.4 Long term (current) use of insulin; N95.2 Postmenopausal atrophic vaginitis; M54.16 Radiculopathy, lumbar region; M1A.0710 Idiopathic chronic gout, right ankle and foot, without tophus (tophi); G47.33 Obstructive sleep apnea (adult) (pediatric); F41.9 Anxiety disorder, unspecified; E78.2 Mixed hyperlipidemia | CPT/HCPCS: 80053; 80061; 81000; 82607; 83036; 83721; 84443 ==

== ENCOUNTER → 2020-07-18 11:31 | Outpatient (BNVA) | payer MEDICARE, OTHER, SELFPAY | PROVIDERS: PCP Nurse Practitioner; Visit Provider Nurse Practitioner Family | DX: Z20.828 Contact with and (suspected) exposure to other viral communicable diseases (principal); J06.9 Acute upper respiratory infection, unspecified | CPT/HCPCS: 87635 ==

== ENCOUNTER → 2020-08-18 12:03 | Outpatient (BNVA) | payer MEDICARE, OTHER, SELFPAY | PROVIDERS: PCP Nurse Practitioner; Visit Provider Nurse Practitioner | DX: Z20.828 Contact with and (suspected) exposure to other viral communicable diseases (principal); J06.9 Acute upper respiratory infection, unspecified; J98.01 Acute bronchospasm | CPT/HCPCS: 87635 ==

== ENCOUNTER 2020-09-27 10:08 | Outpatient (CLI) | payer MEDICARE, OTHER, SELFPAY ==
[2020-09-27 10:42] LABS: Add Urine Microscopic? NO
[2020-09-27 11:35] LABS: Bilirubin Urine Neg (Negative); Blood Urine Neg (Negative); Glucose Urine UA 4+ (Normal); Ketones Urine Negative (Negative); Leukocyte Esterase Urine Negative (Negative); Nitrate Urine Negative (Negative); Protein Urine Neg (Negative); Urine Appearance Clear (CLEAR); Urine Color Yellow (Yellow); Urobilinogen Urine Norm (Negative); pH Urine 6.5 (5-7)
[2020-09-27 14:21] LABS: Alanine Aminotransferase 43 U/L (0-33); Albumin Level 4.5 g/dL (3.5-5.2); Alkaline Phosphatase 122 IU/L (35-105); Anion Gap 18.5 (5-19); Aspartate Amino Transferase 50 U/L (0-32); Blood Urea Nitrogen 9 mg/dL (6-20); Calcium 9.4 mg/dL (8.5-10.5); Carbon Dioxide 27 mmol/L (22-29); Chloride 99 mmol/L (98-107); Globulin 3.7 g/dL (1.3-4.6); Glomerular Filtration Rate 86.2 mL/min (90-130); Glucose 78 mg/dL (65-115); Osmolality Calculated 290 mOsm/kg (285-295); Potassium 3.5 mmol/L (3.5-5.1); Sodium 141 mmol/L (136-145); Total Bilirubin 0.3 mg/dL (0.15-1.2); Total Protein 8.2 g/dL (6.6-8.7)
[2020-09-27 17:08] LABS: Estmated Average Glucose 163; Hemoglobin A1C 7.3 % (4.0-6.0)
== END 2020-09-27 10:09 | disposition home or self-care (01) ==
LOC: LAB 10:14
PROVIDERS: PCP Nurse Practitioner; Visit Provider Nurse Practitioner
DX: E11.65 Type 2 diabetes mellitus with hyperglycemia (principal); Z79.4 Long term (current) use of insulin
CPT/HCPCS: 80053; 81003; 83036

== ENCOUNTER → 2020-10-20 14:51 | Outpatient (BNVA) | payer MEDICARE, OTHER, SELFPAY | PROVIDERS: PCP Nurse Practitioner; Visit Provider Nurse Practitioner Family | DX: Z20.828 Contact with and (suspected) exposure to other viral communicable diseases (principal); J06.9 Acute upper respiratory infection, unspecified | CPT/HCPCS: 87635 ==

== ENCOUNTER → 2020-11-23 10:57 | Outpatient (BNVA) | payer MEDICARE, OTHER, SELFPAY | PROVIDERS: PCP Nurse Practitioner; Visit Provider Nurse Practitioner Family | DX: M25.551 Pain in right hip (principal); M25.552 Pain in left hip; M25.561 Pain in right knee; M16.0 Bilateral primary osteoarthritis of hip | CPT/HCPCS: 73522; 73562 ==

== ENCOUNTER → 2020-12-22 09:10 | Outpatient (BNVA) | payer MEDICARE, OTHER, SELFPAY | PROVIDERS: PCP Nurse Practitioner; Visit Provider Nurse Practitioner | DX: E11.65 Type 2 diabetes mellitus with hyperglycemia (principal); Z79.4 Long term (current) use of insulin; E78.2 Mixed hyperlipidemia; I10 Essential (primary) hypertension | CPT/HCPCS: 80053; 80061; 81000; 83036; 84443; 85025 ==

== ENCOUNTER 2021-02-02 07:39 | Emergency (ER) | payer MEDICARE, OTHER, SELFPAY ==
[2021-02-02 07:51] VITALS: BP 135/73; PULSE 68; RESP 20; TEMP 37.1; O2SAT 96; BMI 29.2
[2021-02-02 07:58] VITALS: BP 133/67; PULSE 72; PULSE 73; RESP 18; O2SAT 94
--- NOTE | 2021-02-02 08:06 | ED_ITS ---
HPI - Extremity Problem General: Chief complaint: Extremity Injury, Lower Stated complaint: Pain in L. Leg Time Seen by Provider: 02/02/21 07:50 History of Present Illness: HPI Narrative: Pleasant young lady comes in with complaint of left upper leg muscle spasm that started on Saturday worsened on Saturday and almost unbearable today. Patient complains that hamstring areas been tight most night today. Hurts a lot. Denies any injury. Does have history of sciatica. Is diabetic blood sugars have been wonderful she states. Actually had not had to use much insulin. Denies any other history of acute problems presently MD Complaint: extremity pain Onset (ago): day(s) Pain Consistency: constant Location: left and lower extremity Severity scale (1-10): 7 Quality: aching, sharp and other (Spasm) Radiation: distal Relieving factors: nothing Exacerbating factors: nothing Associated symptoms: Reports no associated symptoms; Deny chest pain, fever(s) or rash Review of Systems Const: Denies: fever(s), chills or body aches Eyes: Denies: change in vision or blurry vision ENMT: Denies: throat pain or nasal congestion Card: Denies: chest pain or dyspnea on exertion Resp: Denies: dyspnea, productive cough or non-productive cough GI: Denies: abdominal pain, nausea or vomiting Musc: Reports: extremity pain (Left hamstring muscle spasm) Skin/Breast: Denies: rash Neuro: Denies: headache(s) Psych: Denies: anxiety or depression Bravo/Lymph: Denies: easy bruising PFS ED PFSH: Medical History (Updated 02/02/21 @ 10:20 by MONSE Trinidad) Anxiety Cardiomyopathy in diseases classified elsewhere Chronic gout of right foot Controlled type 2 diabetes mellitus with hyperglycemia, with long-term current use of insulin Essential (primary) hypertension Hypersomnia Mixed hyperlipidemia NICKO (obstructive sleep apnea) Radiculopathy, lumbar region Surgical History History of angioplasty History of section History of cholecystectomy History of colonoscopy History of lumpectomy of left breast History of tonsillectomy History of tubal ligation S/P LASIK surgery Family History Mother Cancer CAD (coronary artery disease) Father CAD (coronary artery disease) Social History Smoking and tobacco status: former smoker Second hand smoke exposure: No Smoking risk assessment/counseling performed?: No Alcohol intake: current Alcohol intake frequency: holidays/special occasions only Desire information about alcohol rehabilitation?: No Counseling given: No Desire information about substance/drug rehabilitation?: No Counseling given: No Caregiver/support person: No Lives independently: Yes Marital status: Number of children: 5 History of recent travel: No Current gender identity: Female Physical Exam Const: COMMON NORMALS: no acute distress, average body habitus and patient oriented x3 HENMT: COMMON NORMALS: normocephalic HEAD & SCALP: normal to inspection and normocephalic FACE & SINUS: normal facial exam Eye: COMMON NORMALS: conjunctivae normal GENERAL EYE: appearance normal, both eyes and all related structures CONJUNCTIVA: Yes conjunctivae normal Neck/C-Spine: COMMON NORMALS: no JVD Chest: COMMONS NORMALS: normal inspection of the chest Resp: COMMON NORMALS: normal respiratory effort and clear to auscultation bilaterally AUSCULTATION: clear to auscultation bilaterally Cardio: COMMON NORMALS: no JVD, regular rate and regular rhythm RATE: regular rate RHYTHM: regular rhythm GI: COMMON NORMALS: Normal to inspection, nondistended, normoactive bowel sounds present Extremity: LEFT LOWER EXTREMITY: Yes upper leg (Muscle spasm hamstring lateral aspect no erythema or swelling noted) Neuro: COMMON NORMALS: patient oriented x3 Course Vital Signs: Vital signs: Vital Signs Temperature 98.7 F 02/02/21 07:51 Pulse Rate 71 02/02/21 10:36 Respiratory Rate 17 02/02/21 10:36 Blood Pressure 110/66 02/02/21 10:36 Pulse Oximetry 93 02/02/21 10:36 MDM - Extremity (Nontraumatic) 2 MDM Narrative: Medical decision making narrative: Patient responded well to medication examination extremity did not reveal any injury redness swelling or related problems. Hamstring was tight sciatica was slightly tender patient have full range of motion of the leg. Patient follow-up Nette Morocho in the next week. Lab Data: Labs: Lab Results 02/02/21 02/02/21 Range/Units 08:12 08:12 WBC 11.0 H (4.0-10.0) 10^3/ uL RBC 4.68 (4.1-5.3) 10^6/u L Hgb 13.8 (11.5-15.3) g/dL Hct 43.2 (37.0-47.0) % MCV 92.3 (81-99) fL MCH 29.5 (28.0-34.0) pg MCHC 31.9 (30.0-36.0) g/dL RDW 15.0 (12.1-15.1) % Plt Count 154 (130-400) 10^3/c mm MPV 12.5 H (7.4-10.4) fL Neut % (Auto) 48.9 % Lymph % (Auto) 41.0 % [place] % (Auto) 6.8 % Eos % (Auto) 2.4 % Baso % (Auto) 0.7 % Neut # (Auto) 5.38 (1.8-7.7) 10^3/u L Lymph # (Auto) 4.5 (0.8-4.8) 10^3/u L [place] # (Auto) 0.8 (0.2-0.9) 10^3/u L Eos # (Auto) 0.3 (0.0-0.8) 10^3/u L Baso # (Auto) 0.1 (0.0-0.1) 10^3/u L Nucleated RBC % (a uto) 0 % Nucleated RBCs # 0.0 /100WBC Sodium 140 (136-145) mmol/L Potassium 3.6 (3.5-5.1) mmol/L Chloride 100 (98-107) mmol/L Carbon Dioxide 28 (22-29) mmol/L Anion Gap 15.6 (5-19) BUN 12 (6-20) mg/dL Creatinine 0.6 (0.5-0.9) mg/dL GFR Calculation 102.7 (90-130) mL/min Glucose 150 H (65-115) mg/dL Calculated Osmolal ity 293 (285-295) mOsm/k g Calcium 9.2 (8.5-10.5) mg/dL Total Bilirubin 0.5 (0.15-1.2) mg/dL AST 31 (0-32) U/L ALT 33 (0-33) U/L Alkaline Phosphata se 107 H (35-105) IU/L Total Protein 7.5 (6.6-8.7) g/dL Albumin 4.2 (3.5-5.2) g/dL Globulin 3.3 (1.3-4.6) g/dL Discharge Plan Discharge Patient Disposition: Home Clinical Impression: Sciatica of left side, Muscle spasm Condition: Stable Prescriptions: New prednisone 20 mg tablet 20 mg PO DAILY Qty: 7 RF: 0 cyclobenzaprine 5 mg tablet 5 mg PO TID PRN (Reason: muscle spasm) Qty: 20 RF: 0 No Action (DME) lancets [Fingerstix Lancets] Misc See Rx Instructions .ROUTE .MEDSUPPLY Qty: 200 RF: 5 estradiol [Estrace] 0.01 % (0.1 mg/gram) cream 2 g VAGINAL .2 times week 30 Days Qty: 126 RF: 1 (DME) Portable Nebulizer System Device See Rx Instructions .ROUTE .MEDSUPPLY Qty: 1 RF: 0 albuterol sulfate 2.5 mg /3 mL (0.083 %) solution for nebulization 2.5 mg INHALATION Q4H PRN (Reason: shortness of breath or wheezing) Qty: 75 RF: 2 (DME) nebulizer accessories Kit See Rx Instructions .ROUTE .MEDSUPPLY Qty: 1 RF: 0 tramadol 50 mg tablet 50 mg PO TID PRN (Reason: Pain) RF: 0 aspirin [Adult Aspirin Regimen] 81 mg tablet,delayed release (DR/EC) 81 mg PO DAILY RF: 0 turmeric root extract 500 mg capsule 1,000 mg PO TID RF: 0 magnesium hydroxide 400 mg (170 mg magnesium) tablet,chewable 400 mg PO DAILY RF: 0 omega-3 fatty acids 500 mg capsule 500 mg PO DAILY RF: 0 vitamin E (dl, acetate) 400 unit capsule 400 unit PO DAILY RF: 0 pregabalin [Lyrica] 150 mg capsule 150 mg PO TID RF: 0 tizanidine 2 mg tablet 2 mg PO Q8H PRN (Reason: muscle spasticity) Qty: 180 RF: 0 truvy 1 tab PO DAILY RF: 0 Trulicity 3 mg/0.5 mL pen injector 3 mg SUBCUT .weekly Qty: 6 RF: 0 allopurinol 300 mg tablet 300 mg PO BID Qty: 180 RF: 0 carvedilol 6.25 mg tablet 6.25 mg PO DAILY Qty: 90 RF: 0 duloxetine 30 mg capsule,delayed release(DR/EC) 90 mg PO DAILY Qty: 270 RF: 0 Jardiance 10 mg tablet 10 mg PO QAM Qty: 90 RF: 0 furosemide 40 mg tablet 40 mg PO BID Qty: 180 RF: 0 Levemir FlexTouch U-100 Insuln 100 unit/mL (3 mL) insulin pen 55 unit SUBCUT BID Qty: 105 RF: 0 potassium chloride 20 mEq tablet extended release 20 meq PO BID Qty: 60 RF: 1 (DME) CPAP Qty: 1 RF: 0 atorvastatin 40 mg tablet 40 mg PO DAILY Qty: 90 RF: 3 (DME) OneTouch Ultra Blue Test Strip Strip See Rx Instructions .ROUTE .MEDSUPPLY Qty: 200 RF: 11 insulin aspart U-100 [Novolog Flexpen U-100 Insulin] 100 unit/mL (3 mL) i nsulin pen See Rx Instructions SUBCUT TID Qty: 15 RF: 0 Discharge Orders: Discharge ED (Routine); Ordered 02/02/21 Ordered By: Kel Will Referrals: Nette Morocho, LEATHER GRAINER-C [Primary Care Provider] - Discharge Diet: Usual diet Discharge Activity: Increase activity as tolerated Patient Instructions: Muscle Spasm (ED), Opioid Safety Activity Restrictions/Additional Instructions: Follow-up with medical provider as directed. Take medications as prescribed. Return to the ER or your medical provider if condition worsens. Please read and understand discharge instructions. If any questions ask please. Moist heat to the area as needed. Mild stretching. Follow-up Nette Morocho at clinic if significant provement does not occur. Coding Level of Care Code ED Heel Seat Fitter Machine for Margaritog Fwd Exam Comprehensive
[2021-02-02 08:21] LABS: Basophils # 0.1 10^3/uL (0.0-0.1); Basophils % 0.7 %; Eosinophils # 0.3 10^3/uL (0.0-0.8); Eosinophils % 2.4 %; Hematocrit 43.2 % (37.0-47.0); Hemoglobin 13.8 g/dL (11.5-15.3); Lymphocytes # 4.5 10^3/uL (0.8-4.8); Mean Corpuscular HGB Conc 31.9 g/dL (30.0-36.0); Mean Corpuscular Hemoglobin 29.5 pg (28.0-34.0); Mean Corpuscular Volume 92.3 fL (81-99); Mean Platelet Volume 12.5 fL (7.4-10.4); Monocytes # 0.8 10^3/uL (0.2-0.9); Monocytes % 6.8 %; Neutrophils # 5.38 10^3/uL (1.8-7.7); Neutrophils % 48.9 %; Nucleated Red Blood Cells % 0 %; Platelet Count 154 10^3/cmm (130-400); Red Blood Count 4.68 10^6/uL (4.1-5.3)
[2021-02-02] MEDS: orphenadrine 30 mg/mL Inj 2 mL 60 MG IM (08:24)
[2021-02-02] MEDS: ondansetron 4 MG Tablet PO (08:24)
--- NOTE | 2021-02-02 08:59 | PC.NURSE ---
Taken to bathroom, back in room, pillow between legs for comfort
--- NOTE | 2021-02-02 09:00 | XR_ITS ---
WS: [id number] XR femur LT min 2V* [id number] REASON FOR EXAM: pain mid femur FINDINGS: No fracture or other focal lesion of the left femur. There are some soft tissue calcifications adjacent to the lateral aspect of the proximal femur that w ere seen on a previous examination of 11/23/2020. Possibly previous injection sites. XR/XR femur LT min 2V* [id number] IMPRESSION: No acute abnormality.
[2021-02-02 09:03] LABS: Slide Review Slide Review Perform
[2021-02-02 10:11] LABS: Alanine Aminotransferase 33 U/L (0-33); Albumin Level 4.2 g/dL (3.5-5.2); Alkaline Phosphatase 107 IU/L (35-105); Anion Gap 15.6 (5-19); Aspartate Amino Transferase 31 U/L (0-32); Blood Urea Nitrogen 12 mg/dL (6-20); Calcium 9.2 mg/dL (8.5-10.5); Carbon Dioxide 28 mmol/L (22-29); Chloride 100 mmol/L (98-107); Globulin 3.3 g/dL (1.3-4.6); Glomerular Filtration Rate 102.7 mL/min (90-130); Glucose 150 mg/dL (65-115); Osmolality Calculated 293 mOsm/kg (285-295); Potassium 3.6 mmol/L (3.5-5.1); Sodium 140 mmol/L (136-145); Total Bilirubin 0.5 mg/dL (0.15-1.2); Total Protein 7.5 g/dL (6.6-8.7)
[2021-02-02 10:36] VITALS: BP 110/66; PULSE 71; RESP 17; O2SAT 93
== END 2021-02-02 10:36 | disposition home or self-care (01) ==
PROVIDERS: Emergency Provider Nurse Practitioner Family; PCP Nurse Practitioner
DX: M54.32 Sciatica, left side (principal); M62.838 Other muscle spasm; Z79.82 Long term (current) use of aspirin; Z79.4 Long term (current) use of insulin; E11.9 Type 2 diabetes mellitus without complications; I10 Essential (primary) hypertension; E78.2 Mixed hyperlipidemia; Z87.891 Personal history of nicotine dependence
CPT/HCPCS: 73552; 80053; 85025; 96372; 99283; J2360; Q0162

== ENCOUNTER → 2021-03-24 08:56 | Outpatient (BNVA) | payer MEDICARE, OTHER, SELFPAY | PROVIDERS: PCP Nurse Practitioner; Visit Provider Nurse Practitioner | DX: E11.65 Type 2 diabetes mellitus with hyperglycemia (principal); I10 Essential (primary) hypertension; E78.2 Mixed hyperlipidemia; M54.16 Radiculopathy, lumbar region; M1A.0710 Idiopathic chronic gout, right ankle and foot, without tophus (tophi); N95.2 Postmenopausal atrophic vaginitis; Z79.4 Long term (current) use of insulin | CPT/HCPCS: 80053; 81000; 83036 ==

== ENCOUNTER 2021-05-17 13:21 | Outpatient (CLI) | payer MEDICARE, OTHER, SELFPAY ==
--- NOTE | 2021-05-17 13:30 | XR_ITS ---
WS: [id number] LUMBAR SPINE: 3 VIEWS TECHNIQUE: AP, lateral and L5-S1 spot. HISTORY: M54.16 - Radiculopathy, lumbar region COMPARISON: 01/06/2019 L5 anterolisthesis by 7 mm is similar to the prior study. Facet joint arthritis and possible pars def ects at L5. Otherwise mild narrowing of the disc spaces and small hypertrophic osteophytes. No fractu res. Pedicles are all identified. Prior cholecystectomy. SI joints are symmetric bilaterally. No soft tissue abnormalities. Moderate atherosclerosis aorta. XR/XR lumbar spine 2-3V* [id number] IMPRESSION: 1. Stable grade 1 spondylolisthesis of L5. 2. Mild spondylitic changes in the lumbar spine. No progression since 01/06/2019 .
== END 2021-05-17 13:22 | disposition home or self-care (01) ==
PROVIDERS: PCP Nurse Practitioner; Visit Provider Nurse Practitioner
DX: M54.16 Radiculopathy, lumbar region (principal); M43.16 Spondylolisthesis, lumbar region
CPT/HCPCS: 72100

== ENCOUNTER → 2021-06-19 08:44 | Outpatient (BNVA) | payer MEDICARE, OTHER, SELFPAY | PROVIDERS: PCP Nurse Practitioner; Visit Provider Nurse Practitioner | DX: E11.65 Type 2 diabetes mellitus with hyperglycemia (principal); Z79.4 Long term (current) use of insulin; E78.2 Mixed hyperlipidemia | CPT/HCPCS: 80053; 80061; 83036; 85025 ==

== ENCOUNTER → 2021-09-15 09:00 | Outpatient (BNVA) | payer MEDICARE, OTHER, SELFPAY | PROVIDERS: PCP Nurse Practitioner; Visit Provider Nurse Practitioner | DX: E11.65 Type 2 diabetes mellitus with hyperglycemia (principal); Z79.4 Long term (current) use of insulin; I10 Essential (primary) hypertension | CPT/HCPCS: 80053; 80061; 81000; 83036; 85025 ==

== ENCOUNTER 2021-11-28 14:23 | Outpatient (CLI) | payer MEDICARE, OTHER, SELFPAY ==
[2021-11-28 14:58] VITALS: BP 147/79; PULSE 81; RESP 18; TEMP 36.7; O2SAT 98; BMI 29.2
[2021-11-28 16:30] VITALS: BP 143/76; PULSE 77; RESP 17; TEMP 36.9; O2SAT 99
== END 2021-11-28 14:24 | disposition home or self-care (01) ==
LOC: OPS 14:30
PROVIDERS: PCP Nurse Practitioner; Visit Provider Nurse Practitioner Family
DX: U07.1 COVID-19 (principal)
CPT/HCPCS: 96365

== ENCOUNTER → 2021-12-11 09:13 | Outpatient (BNVA) | payer MEDICARE, OTHER, SELFPAY | PROVIDERS: PCP Nurse Practitioner; Visit Provider Nurse Practitioner | DX: E11.65 Type 2 diabetes mellitus with hyperglycemia (principal); Z79.4 Long term (current) use of insulin; I10 Essential (primary) hypertension | CPT/HCPCS: 80053; 80061; 81000; 83036; 83721; 85025 ==

== ENCOUNTER 2022-01-05 13:52 | Outpatient (CLI) | payer MEDICARE, OTHER, SELFPAY ==
--- NOTE | 2022-01-05 14:10 | XR_ITS ---
WS: [id number] Left shoulder, 3 views, 01/05/2022 Clinical Data: M25.512 - Pain in left shoulder Comparison: Left shoulder, 04/04/2010. Findings: No fractures or dislocations are seen. The AC joint is normal. The adjacent left clavicle, left scapu la and ribs are normal. The soft tissues are unremarkable. There is a minimal calcification overlying the greater tuberosity which could represent calcific burs itis and/or tendinitis. XR/XR shoulder LT min 2V* [id number] Impression: Possible calcific bursitis and/or tendinitis.
== END 2022-01-05 13:53 | disposition home or self-care (01) ==
LOC: RAD 14:03
PROVIDERS: PCP Nurse Practitioner; Visit Provider Nurse Practitioner
DX: M25.512 Pain in left shoulder (principal)
CPT/HCPCS: 73030

== ENCOUNTER 2022-01-06 21:44 | Emergency (ER) | payer MEDICARE, OTHER, SELFPAY ==
--- NOTE | 2022-01-06 21:47 | ECG_ITS ---
[facility] Test Date: 2022-01-07 Pat Name: Deneen Anaya Department: Room: Gender: Female Local Operator: : [id number] Requested By: Matt Huggins Order Number: [id number] Steffany MD: Greyson Woods M.D. Measurements Intervals [place] Rate: 77 P: 75 WA: 146 QRS: 64 QRSD: 90 T: 67 QT: 387 QTc: 440 Interpretive Statements SINUS RHYTHM LOW QRS VOLTAGE IN PRECORDIAL LEADS [QRS DEFLECTION < 1.0 mV IN CHEST LEADS] Compared to ECG 01/06/2022 21:52:05 Ventricular premature complex(es) no longer present Electronically Signed On 01-08-2022 12:15:06 OPERATIONS MGR by Greyson Woods M.D. [id number]
--- NOTE | 2022-01-06 21:47 | XRR_ITS ---
PROCEDURE INFORMATION: Exam: XR Chest Exam date and time: 01/06/2022 9:47 PM Age: 61 years old Clinical indication: Pain; Chest pressure; Additional info: HTN TECHNIQUE: Imaging protocol: XR of the chest. Views: 1 view. COMPARISON: CR XR chest 1V portable [id number] 05/08/2020 4:52 PM FINDINGS: Lungs: Unremarkable. No consolidation. Pleural spaces: Unremarkable. No pleural effusion. No pneumothorax. Heart/Mediastinum: Unremarkable. No cardiomegaly. Bones/joints: Unremarkable. XR/XR chest 1V portable [id number] IMPRESSION: No acute findings.
[2022-01-06 21:54] VITALS: BP 181/82; PULSE 90; RESP 18; TEMP 36.7; O2SAT 97; BMI 29.2
[2022-01-06 22:19] LABS: Basophils # 0.1 10^3/uL (0.0-0.1); Basophils % 0.5 %; Eosinophils # 0.3 10^3/uL (0.0-0.8); Eosinophils % 3.2 %; Hematocrit 45.6 % (37.0-47.0); Lymphocytes # 4.5 10^3/uL (0.8-4.8); Lymphocytes % 45.8 %; Mean Corpuscular HGB Conc 32.9 g/dL (30.0-36.0); Mean Corpuscular Hemoglobin 30.1 pg (28.0-34.0); Mean Corpuscular Volume 91.6 fl (81-99); Mean Platelet Volume 11.7 fL (7.4-10.4); Monocytes # 0.6 10^3/uL (0.2-0.9); Monocytes % 6.1 %; Neutrophils # 4.29 10^3/uL (1.8-7.7); Neutrophils % 44.2 %; Nucleated Red Blood Cells % 0 %; Platelet Count 177 10^3/cmm (130-400); Red Blood Count 4.98 10^6/uL (4.1-5.3); Red Cell Distribution Width 14.8 % (12.1-15.1); White Blood Count 9.7 10^3/uL (4.0-10.0)
--- NOTE | 2022-01-06 22:27 | W.ED.ARRPALP ---
HPI - Arrhythmia/Palpitations General: Chief Complaint: Arrhythmia/Palpitations Stated Complaint: Afib High Blood Pressure Time Seen by Provider: 01/06/22 22:11 Source: patient Mode of arrival: ambulatory Limitations: no limitations History of Present Illness: 61-year-old female has a history of high blood pressure states that over the last 2 days she been having some palpitations and feeling like she can feel her heart beating fast in her chest. States that tonight she is lying there felt like her heart was in a beat out of her chest and was having tachycardia and checked her blood pressure and it was 220. States he also had some mild headache states she is having a weird feeling in her chest where she feels like she can feel her heart beating but denies any pain currently. States her blood pressure not been as high in the past. She denies any worsening improving factors denies any vomiting diarrhea or shortness of breath. Associated symptoms: Deny nausea or vomiting Review of Systems Const: Denies: fever(s), chills, body aches or change in appetite Eyes: Denies: blurry vision or eye discomfort ENMT: Denies: throat pain or dental pain Card: Reports: chest pain and palpitations Resp: Denies: dyspnea GI: Denies: abdominal pain, nausea, vomiting or diarrhea : Denies: dysuria Musc: Denies: neck pain or back pain Skin/Breast: Denies: rash Neuro: Denies: headache(s) Psych: Denies: depression Bravo/Lymph: Denies: easy bruising All/Imm: Denies: urticaria PFSH ED PFSH: Medical History (Updated 01/07/22 @ 01:16 by Matt Huggins MD) Anxiety Cardiomyopathy in diseases classified elsewhere Chronic gout of right foot Controlled type 2 diabetes mellitus with hyperglycemia, with long-term current use of insulin Essential (primary) hypertension Hypersomnia Mixed hyperlipidemia NICKO (obstructive sleep apnea) Radiculopathy, lumbar region Surgical History History of angioplasty History of section History of cholecystectomy History of colonoscopy History of lumpectomy of left breast History of tonsillectomy History of tubal ligation S/P LASIK surgery Family History Mother Cancer CAD (coronary artery disease) Father CAD (coronary artery disease) Social History Smoking and tobacco status: former smoker Second hand smoke exposure: No Smoking risk assessment/counseling performed?: No Alcohol intake: current Alcohol intake frequency: holidays/special occasions only Desire information about alcohol rehabilitation?: No Counseling given: No Desire information about substance/drug rehabilitation?: No Counseling given: No Caregiver/support person: No Lives independently: Yes Marital status: Number of children: 5 History of recent travel: No Current gender identity: Female Physical Exam Const: COMMON NORMALS: no acute distress, patient oriented x3 and healthy appearing HENMT: COMMON NORMALS: normocephalic and atraumatic HEAD & SCALP: normocephalic and atraumatic Eye: COMMON NORMALS: Equal, round and reactive pupils present and EOMs intact bilaterally PUPIL: Yes Equal, round and reactive pupils present Neck/C-Spine: COMMON NORMALS: full ROM and supple Chest: COMMONS NORMALS: normal inspection of the chest and normal palpation of entire chest wall Resp: COMMON NORMALS: normal respiratory effort, No retractions, No use of accessory muscles and clear to auscultation bilaterally AUSCULTATION: clear to auscultation bilaterally Cardio: COMMON NORMALS: regular rate, regular rhythm and No murmurs present (Cardio) RATE: regular rate RHYTHM: regular rhythm GI: COMMON NORMALS: Normal to inspection, nondistended, normoactive bowel sounds present, Soft to palpation, non-tender and no masses PALPATION: Yes Soft to palpation Extremity: COMMON NORMALS: normal to inspection and full ROM Neuro: COMMON NORMALS: patient oriented x3, moves all extremities and no focal motor deficits Psych: COMMON NORMALS: mental status grossly normal, Normal thought process present and cooperative THOUGHT PROCESS: Normal thought process present Skin: COMMON NORMALS: no rashes or lesions noted and no wounds GENERAL SKIN EXAM: no rashes or lesions noted Course Vital Signs: Vital signs: Vital Signs Temperature 98.0 F 01/06/22 21:54 Pulse Rate 91 01/07/22 01:07 Respiratory Rate 24 H 01/07/22 01:07 Blood Pressure 142/69 01/07/22 01:07 Pulse Oximetry 95 01/07/22 01:07 MDM - Arrhythmia/Palpitations Medical Decision Making Patient presents with hypertension along with some palpitations chest pain is atypical in nature initial repeat troponins here are negative. She is well-appearing here pain is improved blood pressure here is improved as well we will increase her carvedilol to twice a day she is to follow-up with cardiology return if worsening she understands agrees to plan. Lab Data : 01/06/22 22:05 01/06/22 22:05 Radiology Impressions Chest X-Ray 01/06/22 21:47 IMPRESSION: No acute findings. Laboratory Results WBC 9.7 10^3/uL (4.0-10.0) 01/06/22 22:05 RBC 4.98 10^6/uL (4.1-5.3) 01/06/22 22:05 Hgb 15.0 g/dL (11.5-15.3) 01/06/22 22:05 Hct 45.6 % (37.0-47.0) 01/06/22 22:05 MCV 91.6 fl (81-99) 01/06/22 22:05 MCH 30.1 pg (28.0-34.0) 01/06/22 22:05 MCHC 32.9 g/dL (30.0-36.0) 01/06/22 22:05 RDW 14.8 % (12.1-15.1) 01/06/22 22:05 Plt Count 177 10^3/cmm (130-400) 01/06/22 22:05 MPV 11.7 fL (7.4-10.4) H 01/06/22 22:05 Neut % (Auto) 44.2 % 01/06/22 22:05 Lymph % (Auto) 45.8 % 01/06/22 22:05 [place] % (Auto) 6.1 % 01/06/22 22:05 Eos % (Auto) 3.2 % 01/06/22 22:05 Baso % (Auto) 0.5 % 01/06/22 22:05 Neut # (Auto) 4.29 10^3/uL (1.8-7.7) 01/06/22 22:05 Lymph # (Auto) 4.5 10^3/uL (0.8-4.8) 01/06/22 22:05 [place] # (Auto) 0.6 10^3/uL (0.2-0.9) 01/06/22 22:05 Eos # (Auto) 0.3 10^3/uL (0.0-0.8) 01/06/22 22:05 Baso # (Auto) 0.1 10^3/uL (0.0-0.1) 01/06/22 22:05 Nucleated RBC % (auto) 0 % 01/06/22 22:05 Nucleated RBCs # 0.0 /100WBC 01/06/22 22:05 PT 12.10 SECONDS (12.1-14.9) 01/06/22 22:05 INR 0.87 (0.8-1.2) 01/06/22 22:05 Sodium 141 mmol/L (136-145) 01/06/22 22:05 Potassium 3.4 mmol/L (3.5-5.1) L 01/06/22 22:05 Chloride 98 mmol/L (98-107) 01/06/22 22:05 Carbon Dioxide 27 mmol/L (22-29) 01/06/22 22:05 Anion Gap 19.4 (5-19) H 01/06/22 22:05 BUN 11 mg/dL (6-20) 01/06/22 22:05 Creatinine 0.6 mg/dL (0.5-0.9) 01/06/22 22:05 GFR Calculation 102.3 mL/min (90-130) 01/06/22 22:05 Glucose 181 mg/dL (65-115) H 01/06/22 22:05 POC Glucose 140 mg/dL (70-110) H 01/07/22 00:16 Calculated Osmolality 296 mOsm/kg (285-295) H 01/06/22 22:05 Calcium 9.6 mg/dL (8.5-10.5) 01/06/22 22:05 Total Bilirubin 0.3 mg/dL (0.15-1.2) 01/06/22 22:05 AST 52 U/L (0-32) H 01/06/22 22:05 ALT 47 U/L (0-33) H 01/06/22 22:05 Alkaline Phosphatase 119 IU/L (35-105) H 01/06/22 22:05 Troponin T Baseline 8 ng/L (0-10) 01/06/22 22:05 Troponin T 120 Minute 8.77 ng/L (0-10) 01/07/22 00:21 Delta Troponin T Not Reportable 01/07/22 00:21 Total Protein 7.9 g/dL (6.6-8.7) 01/06/22 22:05 Albumin 4.6 g/dL (3.5-5.2) 01/06/22 22:05 Globulin 3.3 g/dL (1.3-4.6) 01/06/22 22:05 EKG Data EKG 1: I personally reviewed and interpreted this EKG as follows: EKG interpretation date: 01/06/22 EKG interpretation time: 21:52 Interpretation: nsr hr [address] or t wave abnormalities qrs 86 qtc 388 Other EKG comments: Chest X-Ray 01/06/22 21:47 IMPRESSION: No acute findings. EKG 2: I personally reviewed and interpreted this EKG as follows: EKG interpretation date: 01/07/22 EKG interpretation time: 00:25 Interpretation: nsr hr [address] or t wave abnormalities qrs 90 qtc 419 Other EKG comments: Chest X-Ray 01/06/22 21:47 IMPRESSION: No acute findings. Discharge Plan Discharge Patient Disposition: Home Clinical Impression: Essential (primary) hypertension, Chest pain Condition: Stable Prescriptions: Changed carvedilol 6.25 mg tablet 6.25 mg PO BID Qty: 90 0RF No Action (DME) lancets [Fingerstix Lancets] Misc See Rx Instructions .ROUTE .MEDSUPPLY Qty: 200 5RF Rx Instructions: 4 times daily (DME) Portable Nebulizer System Device See Rx Instructions .ROUTE .MEDSUPPLY Qty: 1 0RF Rx Instructions: daily albuterol sulfate 2.5 mg /3 mL (0.083 %) solution for nebulization 2.5 mg INHALATION Q4H PRN (Reason: shortness of breath or wheezing) Qty: 75 2RF (DME) nebulizer accessories Kit See Rx Instructions .ROUTE .MEDSUPPLY Qty: 1 0RF Rx Instructions: daily oral fluconazole [Diflucan] 150 mg tablet 150 mg PO Q3D Qty: 2 0RF allopurinol 300 mg tablet 300 mg PO BID Qty: 180 0RF Trulicity 3 mg/0.5 mL pen injector 3 mg SUBCUT .weekly Qty: 6 0RF duloxetine 30 mg capsule,delayed release(DR/EC) 90 mg PO DAILY Qty: 270 0RF Jardiance 10 mg tablet 10 mg PO QAM Qty: 90 0RF estradiol [Estrace] 0.01 % (0.1 mg/gram) cream 2 g VAGINAL .2 times week 30 Days Qty: 126 1RF furosemide 40 mg tablet 40 mg PO BID Qty: 180 0RF insulin aspart U-100 [Novolog Flexpen U-100 Insulin] 100 unit/mL (3 mL) insulin pen See Rx Instructions SUBCUT TID Qty: 15 0RF Rx Instructions: 110-115=5U,116-120=7U,121-140=9U,141-160=11U,161-190=13U,191-210=15U,211-230=17U,231-250=19U,251-270=21U,271-290=23U,291-310=25U Levemir FlexTouch U-100 Insuln 100 unit/mL (3 mL) insulin pen 55 unit SUBCUT BID Qty: 105 0RF potassium chloride 20 mEq tablet extended release 20 meq PO BID Qty: 180 0RF doxepin 10 mg capsule 10 mg PO TID Qty: 270 0RF tramadol 50 mg tablet 50 mg PO TID PRN (Reason: Pain) 0RF turmeric root extract 500 mg capsule 1,000 mg PO TID 0RF Rx Instructions: dose change magnesium hydroxide 400 mg (170 mg magnesium) tablet,chewable 400 mg PO DAILY 0RF omega-3 fatty acids 500 mg capsule 500 mg PO DAILY 0RF vitamin E (dl, acetate) 400 unit capsule 400 unit PO DAILY 0RF pregabalin [Lyrica] 150 mg capsule 150 mg PO TID 0RF truvy 1 tab PO DAILY 0RF tizanidine 2 mg tablet 2 mg PO Q8H PRN (Reason: muscle spasticity) Qty: 180 0RF (DME) blood-glucose meter [Ventrixuch Ultra2 Meter] Kit See Rx Instructions .Route Qty: 1 0RF Rx Instructions: use 3-4 times daily (DME) lancets [OneTouch Delica Plus Lancet] 33 gauge misc See Rx Instructions .Route Qty: 100 5RF Rx Instructions: use 3-4 times day (DME) OneTouch Ultra Test Strip See Rx Instructions .Route Qty: 200 5RF Rx Instructions: use 3-4 time day (DME) CPAP Qty: 1 0RF Rx Instructions: get items and send codes for signature atorvastatin 40 mg tablet 40 mg PO DAILY Qty: 90 3RF Discharge Orders: Discharge ED (Routine); Ordered 01/07/22 Ordered By: Matt Huggins Referrals: Nette Morocho, SURGICAL GARMENT INSPECTOR-C [Primary Care Provider] - 1-3 days Discharge Diet: Advance as tolerated Discharge Activity: Resume usual activity Patient Instructions: Chest Pain (ED), Hypertension (ED) Coding Level of Care Code ED Tip Mender for Margaritog Fwd Exam Comprehensive
[2022-01-06 22:32] LABS: INR 0.87 (0.8-1.2)
[2022-01-06] MEDS: labetalol 5 mg/mL SDV 20mL 10 MG IVP (22:36)
[2022-01-06 22:38] LABS: Troponin(5th) Baseline 8 ng/L (0-10)
[2022-01-06 22:39] VITALS: BP 172/94; PULSE 81; RESP 11; O2SAT 91
[2022-01-06 22:42] LABS: Alanine Aminotransferase 47 U/L (0-33); Albumin Level 4.6 g/dL (3.5-5.2); Alkaline Phosphatase 119 IU/L (35-105); Anion Gap 19.4 (5-19); Aspartate Amino Transferase 52 U/L (0-32); Blood Urea Nitrogen 11 mg/dL (6-20); Calcium 9.6 mg/dL (8.5-10.5); Carbon Dioxide 27 mmol/L (22-29); Chloride 98 mmol/L (98-107); Globulin 3.3 g/dL (1.3-4.6); Glomerular Filtration Rate 102.3 mL/min (90-130); Glucose 181 mg/dL (65-115); Osmolality Calculated 296 mOsm/kg (285-295); Potassium 3.4 mmol/L (3.5-5.1); Sodium 141 mmol/L (136-145); Total Bilirubin 0.3 mg/dL (0.15-1.2); Total Protein 7.9 g/dL (6.6-8.7)
[2022-01-06 23:11] VITALS: BP 150/75; PULSE 81; RESP 18; O2SAT 91
[2022-01-06 23:34] VITALS: BP 161/77; PULSE 79; RESP 14; O2SAT 92
[2022-01-06] MEDS: LORazepam 2 mg/mL INJ 1 mL 1 MG IVP (23:40)
--- NOTE | 2022-01-06 23:47 | ECG_ITS ---
[facility] Test Date: 2022-01-06 Pat Name: Deneen Anaya Department: Room: Gender: Female Seam Press Operator: : 1960 Requested By: Matt Huggins Order Number: [id number] Steffany MD: Greyson Woods M.D. Measurements Intervals [place] Rate: 86 P: 76 DC: 147 QRS: 57 QRSD: 86 T: 67 QT: 345 QTc: 414 Interpretive Statements SINUS RHYTHM WITH OCCASIONAL VENTRICULAR PREMATURE COMPLEXES LOW QRS VOLTAGE IN PRECORDIAL LEADS [QRS DEFLECTION < 1.0 mV IN CHEST LEADS] Compared to ECG 05/08/2020 18:43:37 Ventricular premature complex(es) now present Low QRS voltage now present Electronically Signed On 01-08-2022 12:18:15 RECOVERY ENGINEER by Greyson Woods M.D. [id number]
[2022-01-07 00:21] LABS: Glucose Point of Care 140 mg/dL (70-110)
[2022-01-07 01:02] LABS: Glucose Point of Care 166 mg/dL (70-110)
[2022-01-07 01:07] VITALS: BP 142/69; PULSE 91; RESP 24; O2SAT 95
[2022-01-07 01:11] LABS: Troponin 5 2HR 8.77 ng/L (0-10)
== END 2022-01-07 02:07 | disposition home or self-care (01) ==
PROVIDERS: Emergency Provider Emergency Medicine; PCP Nurse Practitioner
DX: R07.9 Chest pain, unspecified (principal); I10 Essential (primary) hypertension; Z79.4 Long term (current) use of insulin; E11.9 Type 2 diabetes mellitus without complications; E78.2 Mixed hyperlipidemia; Z87.891 Personal history of nicotine dependence
CPT/HCPCS: 36416; 71045; 80053; 82962; 84484; 85025; 85610; 93005; 96374; 96375; 99284; J2060; J3490

== ENCOUNTER → 2022-02-21 11:02 | Outpatient (BNVA) | payer MEDICARE, OTHER, SELFPAY | PROVIDERS: PCP Nurse Practitioner; Visit Provider Nurse Practitioner | DX: E11.65 Type 2 diabetes mellitus with hyperglycemia (principal); Z79.4 Long term (current) use of insulin; E78.2 Mixed hyperlipidemia | CPT/HCPCS: 80053; 80061; 81000; 83036; 83721; 85025 ==

== ENCOUNTER 2022-05-18 10:02 | Outpatient (CLI) | payer MEDICARE, OTHER, SELFPAY ==
[2022-05-18 10:37] LABS: Add Urine Microscopic? NO; Charge for UA Resulting for Rev
[2022-05-18 10:58] LABS: Bilirubin Urine Neg (Negative); Blood Urine Neg (Negative); Glucose Urine UA 4+ (Normal); Ketones Urine Negative (Negative); Leukocyte Esterase Urine Negative (Negative); Nitrate Urine Negative (Negative); Protein Urine Neg (Negative); Specific Gravity, Urine 1.015 (1.005-1.030); Urine Appearance Clear (CLEAR); Urine Color Yellow (Yellow); Urobilinogen Urine Norm (Negative); pH Urine 6 (5-7)
[2022-05-18 11:02] LABS: Alanine Aminotransferase 29 U/L (0-33); Albumin Level 4.4 g/dL (3.5-5.2); Alkaline Phosphatase 99 IU/L (35-105); Anion Gap 14.3 (5-19); Aspartate Amino Transferase 31 U/L (0-32); Blood Urea Nitrogen 11 mg/dL (6-20); Calcium 9.2 mg/dL (8.5-10.5); Carbon Dioxide 28 mmol/L (22-29); Chloride 103 mmol/L (98-107); Globulin 3.1 g/dL (1.3-4.6); Glomerular Filtration Rate 102.3 mL/min (90-130); Glucose 118 mg/dL (65-115); Osmolality Calculated 292 mOsm/kg (285-295); Potassium 4.3 mmol/L (3.5-5.1); Sodium 141 mmol/L (136-145); Total Bilirubin 0.4 mg/dL (0.15-1.2); Total Protein 7.5 g/dL (6.6-8.7)
[2022-05-18 11:34] LABS: Estmated Average Glucose 166; Hemoglobin A1C 7.4 % (4.0-6.0)
== END 2022-05-18 10:03 | disposition home or self-care (01) ==
LOC: LAB 10:06
PROVIDERS: PCP Nurse Practitioner; Visit Provider Nurse Practitioner
DX: E11.65 Type 2 diabetes mellitus with hyperglycemia (principal); Z79.4 Long term (current) use of insulin
CPT/HCPCS: 36415; 80053; 81003; 83036

== ENCOUNTER 2022-08-14 18:23 | Emergency (ER) | payer MEDICARE, OTHER, SELFPAY ==
[2022-08-14 18:29] VITALS: BP 143/76; PULSE 75; RESP 16; TEMP 36.9; O2SAT 98; BMI 29.0
--- NOTE | 2022-08-14 18:39 | CTR_ITS ---
PROCEDURE INFORMATION: Exam: CT Head Without Contrast Exam date and time: 08/14/2022 6:52 PM Age: 61 years old Clinical indication: Injury or trauma; Other: 2 x 4 hit in RT side of face this p. M. Blunt trauma (contusions or hematomas); Without loss of consciousness; Injury details: Hit in right side of face with 2 x 4 earlier; Additional info: CASTANON S/P accident today TECHNIQUE: Imaging protocol: Computed tomography of the head without contrast. Radiation optimization: All CT scans at this facility use at least one of these dose optimization techniques: automated exposure control; mA and/or kV adjustment per patient size (includes targeted exams where dose is matched to clinical indication); or iterative reconstruction. COMPARISON: MR head wo/w con [id number] 05/07/2018 10:31 AM RADIATION DOSE METRICS: Total DLP (mGy-cm): 1069.48 FINDINGS: Brain: No hemorrhage. No edema. Moderate diffuse cerebral atrophy and sequela of chronic small vessel ischemic disease. No mass effect. Cerebral ventricles: No ventriculomegaly. Paranasal sinuses: Visualized sinuses are unremarkable. No fluid levels. Mastoid air cells: Visualized mastoid air cells are well aerated. Bones/joints: Unremarkable. No acute fracture. Soft tissues: Unremarkable. CT/CT head wo con* [id number] IMPRESSION: No acute intracranial abnormality.
--- NOTE | 2022-08-14 18:42 | ED_ITS ---
HPI - Head Injury General: Chief complaint: Head Injury Stated complaint: hit in head Time Seen by Provider: 08/14/22 18:38 Source: patient Mode of arrival: ambulatory Limitations: no limitations History of Present Illness: 61-year-old female states that she was helping her build a chicken coop he states that he had excellently dropped a 2 x 4 fell roughly 5 to 6 feet and hit her in the head this happened 30 minutes ago she does have abrasions to right side of her head and her face she has facial pain and a headache she rates a 6 out of 10 denies any neck pain or any other injuries does have an abrasion to her left forearm. Associated symptoms: Deny nausea, neck pain or vomiting Review of Systems Const: Denies: fever(s), chills, body aches or change in appetite Eyes: Denies: blurry vision or eye discomfort ENMT: Denies: throat pain or dental pain Card: Denies: chest pain Resp: Denies: dyspnea GI: Denies: abdominal pain, nausea, vomiting or diarrhea : Denies: dysuria Musc: Denies: neck pain or back pain Skin/Breast: Denies: rash Neuro: Reports: headache(s) Psych: Denies: depression Bravo/Lymph: Denies: easy bruising All/Imm: Denies: urticaria PFSH ED PFSH: Medical History (Updated 08/14/22 @ 19:36 by Matt Huggins MD) Anxiety Cardiomyopathy in diseases classified elsewhere Chronic gout of right foot Controlled type 2 diabetes mellitus with hyperglycemia, with long-term current use of insulin Essential (primary) hypertension Hypersomnia Mixed hyperlipidemia NICKO (obstructive sleep apnea) Radiculopathy, lumbar region Surgical History History of angioplasty History of section History of cholecystectomy History of colonoscopy History of lumpectomy of left breast History of tonsillectomy History of tubal ligation S/P LASIK surgery Family History Mother Cancer CAD (coronary artery disease) Father CAD (coronary artery disease) Social History Smoking and tobacco status: former smoker Second hand smoke exposure: No Smoking risk assessment/counseling performed?: No Alcohol intake: current Alcohol intake frequency: holidays/special occasions only Desire information about alcohol rehabilitation?: No Counseling given: No Desire information about substance/drug rehabilitation?: No Counseling given: No Caregiver/support person: No Lives independently: Yes Marital status: Number of children: 5 History of recent travel: No Current gender identity: Female Physical Exam Const: COMMON NORMALS: no acute distress, patient oriented x3 and healthy appearing HENMT: OTHER: Contusion along with tenderness over right side of head and face Eye: COMMON NORMALS: Equal, round and reactive pupils present and EOMs intact bilaterally PUPIL: Yes Equal, round and reactive pupils present Neck/C-Spine: COMMON NORMALS: full ROM and supple Chest: COMMONS NORMALS: normal inspection of the chest and normal palpation of entire chest wall Resp: COMMON NORMALS: normal respiratory effort, No retractions, No use of accessory muscles and clear to auscultation bilaterally AUSCULTATION: clear to auscultation bilaterally Cardio: COMMON NORMALS: regular rate, regular rhythm and No murmurs present (Cardio) RATE: regular rate RHYTHM: regular rhythm GI: COMMON NORMALS: Normal to inspection, nondistended, normoactive bowel sounds present, Soft to palpation, non-tender and no masses PALPATION: Yes Soft to palpation Extremity: COMMON NORMALS: normal to inspection and full ROM Neuro: COMMON NORMALS: patient oriented x3, moves all extremities and no focal motor deficits Psych: COMMON NORMALS: mental status grossly normal, Normal thought process present and cooperative THOUGHT PROCESS: Normal thought process present Skin: COMMON NORMALS: no rashes or lesions noted and no wounds GENERAL SKIN EXAM: no rashes or lesions noted Course Vital Signs: Vital signs: Vital Signs Temperature 98.4 F 08/14/22 18:29 Pulse Rate 75 08/14/22 18:29 Respiratory Rate 16 08/14/22 18:29 Blood Pressure 143/76 08/14/22 18:29 Pulse Oximetry 98 08/14/22 18:29 Oxygen Delivery Me thod 08/14/22 18:29 MDM - Head Injury Medcial Decision Making Patient presents here with closed head injury along with facial contusion her CT scans here are normal she is stable for discharge she is to follow-up with primary care doctor and return if worsening he understands agrees to plan. Lab Data Radiology Impressions Head CT 08/14/22 18:39 IMPRESSION: No acute intracranial abnormality. Face CT 08/14/22 18:42 IMPRESSION: No acute findings. Discharge Plan Discharge Patient Disposition: Home Clinical Impression: Closed head injury, Contusion of face Condition: Stable Prescriptions: No Action (DME) lancets [Fingerstix Lancets] Misc See Rx Instructions .ROUTE .MEDSUPPLY Qty: 200 5RF Rx Instructions: 4 times daily (DME) Portable Nebulizer System Device See Rx Instructions .ROUTE .MEDSUPPLY Qty: 1 0RF Rx Instructions: daily (DME) nebulizer accessories Kit See Rx Instructions .ROUTE .MEDSUPPLY Qty: 1 0RF Rx Instructions: daily oral insulin aspart U-100 [Novolog Flexpen U-100 Insulin] 100 unit/mL (3 mL) insulin pen See Rx Instructions SUBCUT TID Qty: 15 0RF Rx Instructions: 110-115=5U,116-120=7U,121-140=9U,141-160=11U,161-190=13U,191-210=15U,211-230=17U ,231-250=19U,251-270=21U,271-290=23U,291-310=25U (DME) OneTouch Ultra Test Strip See Rx Instructions .Route Qty: 200 5RF Rx Instructions: use 3-4 time day tramadol 50 mg tablet 50 mg PO TID PRN (Reason: Pain) turmeric root extract 500 mg capsule 1,000 mg PO TID Rx Instructions: dose change magnesium hydroxide 400 mg (170 mg magnesium) tablet,chewable 400 mg PO DAILY omega-3 fatty acids 500 mg capsule 500 mg PO DAILY vitamin E (dl, acetate) 400 unit capsule 400 unit PO DAILY pregabalin [Lyrica] 150 mg capsule 150 mg PO TID truvy 1 tab PO DAILY tizanidine 2 mg tablet 2 mg PO Q8H PRN (Reason: muscle spasticity) Qty: 180 0RF (DME) blood-glucose meter [OneTouch Ultra2 Meter] Kit See Rx Instructions .Route Qty: 1 0RF Rx Instructions: use 3-4 times daily (DME) lancets [OneTouch Delica Plus Lancet] 33 gauge misc See Rx Instructions .Route Qty: 100 5RF Rx Instructions: use 3-4 times day atorvastatin 40 mg tablet 40 mg PO DAILY Qty: 90 1RF allopurinol 300 mg tablet 300 mg PO BID Qty: 180 1RF doxepin 10 mg capsule 10 mg PO TID Qty: 270 1RF Trulicity 3 mg/0.5 mL pen injector 3 mg SUBCUT .weekly Qty: 6 1RF duloxetine 30 mg capsule,delayed release(DR/EC) 90 mg PO DAILY Qty: 270 1RF Jardiance 10 mg tablet 10 mg PO QAM Qty: 90 1RF estradiol [Estrace] 0.01 % (0.1 mg/gram) cream 2 g VAGINAL .2 times week 30 Days Qty: 126 1RF furosemide 40 mg tablet 40 mg PO BID Qty: 180 1RF Levemir FlexTouch U-100 Insuln 100 unit/mL (3 mL) insulin pen 60 unit SUBCUT BID Qty: 108 1RF potassium chloride 20 mEq tablet extended release See Rx Instructions PO .COMPLEX Qty: 288 1RF Rx Instructions: 2 tab on S,T,TH,S 3 tab M,W,F PO; carvedilol 6.25 mg tablet 6.25 mg PO BID Qty: 90 0RF hydrocortisone 2.5 % cream 1 applic topical BID PRN (Reason: skin irritation) Qty: 30 0RF (DME) CPAP Qty: 1 0RF Rx Instructions: get items and send codes for signature Discharge Orders: Discharge ED (Routine); Ordered 08/14/22 Ordered By: Matt Huggins Referrals: Nette Morocho, SUSTAINABILITY SPECIALIST-C [Primary Care Provider] - 1-3 days Discharge Diet: Advance as tolerated Discharge Activity: Resume usual activity Patient Instructions: Head Injury (ED) Coding Level of Care Code ED Hogshead Filler for Angel Fwd Exam Comprehensive
--- NOTE | 2022-08-14 18:42 | CTR_ITS ---
PROCEDURE INFORMATION: Exam: CT Maxillofacial Without Contrast Exam date and time: 08/14/2022 6:55 PM Age: 61 years old Clinical indication: Pain and injury or trauma; Other: 2 x 4 board slipped and patient was hit in right side of face. Face pain and nose pain and ocular pain; Blunt trauma (contusions or hematomas); Cheek bone and nose and ocular (eye or eyeball) TECHNIQUE: Imaging protocol: Computed tomography of the of the face without contrast. Radiation optimization: All CT scans at this facility use at least one of these dose optimization techniques: automated exposure control; mA and/or kV adjustment per patient size (includes targeted exams where dose is matched to clinical indication); or iterative reconstruction. COMPARISON: CT head wo con* [id number] 08/14/2022 6:52 PM RADIATION DOSE METRICS: Total DLP (mGy-cm): 520.68 FINDINGS: Orbital cavities: Orbits are normal. Globes are unremarkable. Bones/joints: No acute fracture. Paranasal sinuses: Normal. No air-fluid levels. Soft tissues: Unremarkable. CT/CT facial bones wo con* [id number] IMPRESSION: No acute findings.
[2022-08-14] MEDS: tetanus-dipt-pertussis 0.5 mL SDV IM (19:09)
[2022-08-14] MEDS: HYDROcodone-acetaminophen 5-325 mg Tablet 1 TAB PO (19:09)
== END 2022-08-14 20:02 | disposition home or self-care (01) ==
PROVIDERS: Emergency Provider Emergency Medicine; PCP Nurse Practitioner
DX: S09.8XXA Other specified injuries of head, initial encounter (principal); S00.83XA Contusion of other part of head, initial encounter; Z79.899 Other long term (current) drug therapy; Z79.4 Long term (current) use of insulin; Z87.891 Personal history of nicotine dependence; E11.9 Type 2 diabetes mellitus without complications; I10 Essential (primary) hypertension; E78.2 Mixed hyperlipidemia; W20.8XXA Other cause of strike by thrown, projected or falling object, initial encounter; Z23 Encounter for immunization
CPT/HCPCS: 70450; 70486; 90471; 90715; 99284

== ENCOUNTER → 2022-08-16 09:38 | Outpatient (BNVA) | payer MEDICARE, OTHER, SELFPAY | PROVIDERS: PCP Nurse Practitioner; Visit Provider Nurse Practitioner | DX: E11.65 Type 2 diabetes mellitus with hyperglycemia (principal); Z79.4 Long term (current) use of insulin; E78.2 Mixed hyperlipidemia; I10 Essential (primary) hypertension | CPT/HCPCS: 80053; 80061; 83036 ==

== ENCOUNTER 2022-09-08 17:45 | Emergency (ER) | payer MEDICARE, OTHER, SELFPAY ==
[2022-09-08 18:16] VITALS: BP 130/77; PULSE 76; RESP 16; TEMP 36.5; O2SAT 98; BMI 28.9
--- NOTE | 2022-09-08 18:27 | ED_ITS ---
HPI - Recheck/Abnormal Lab/Rx General: Chief Complaint: Recheck/Abnormal Lab/Rx Stated Complaint: needs meds, both hands hurting Time Seen by Provider: 09/08/22 18:26 History of Present Illness: 61-year-old female comes in today for concerns of persistent diabetic neuropathy pain. Patient been without her Lyrica for the last 3 weeks but has recently gotten it reinstated and should be receiving that within the next week. Patient gets her medications from [facility] and is waiting for the delivery. Patient came in tonight due to uncontrolled pain at home and requesting medication for relief. Patient appears nontoxic. Patient denies any fever. Patient appears in mild to moderate pain. Review of Systems General: Reports: 10 or more systems reviewed and unremarkable except in HPI and below Const: Denies: fever(s) Card: Denies: chest pain Resp: Denies: dyspnea GI: Denies: vomiting : Denies: difficulty voiding Musc: Reports: extremity pain Skin/Breast: Denies: rash Neuro: Reports: other (Uncontrolled chronic pain) Psych: Reports: anxiety PFSH ED PFSH: Medical History Anxiety Cardiomyopathy in diseases classified elsewhere Chronic gout of right foot Controlled type 2 diabetes mellitus with hyperglycemia, with long-term current use of insulin Essential (primary) hypertension Hypersomnia Mixed hyperlipidemia NICKO (obstructive sleep apnea) Radiculopathy, lumbar region Surgical History History of angioplasty History of section History of cholecystectomy History of colonoscopy History of lumpectomy of left breast History of tonsillectomy History of tubal ligation S/P LASIK surgery Family History Mother Cancer CAD (coronary artery disease) Father CAD (coronary artery disease) Social History Smoking and tobacco status: former smoker Second hand smoke exposure: No Smoking risk assessment/counseling performed?: No Alcohol intake: current Alcohol intake frequency: holidays/special occasions only Desire information about alcohol rehabilitation?: No Counseling given: No Desire information about substance/drug rehabilitation?: No Counseling given: No Caregiver/support person: No Lives independently: Yes Marital status: Number of children: 5 History of recent travel: No Current gender identity: Female Physical Exam Const: COMMON NORMALS: alert HENMT: COMMON NORMALS: normocephalic HEAD & SCALP: normocephalic Neck/C-Spine: COMMON NORMALS: full ROM Resp: COMMON NORMALS: normal respiratory effort Cardio: COMMON NORMALS: regular rate RATE: regular rate Extremity: COMMON NORMALS: no pedal edema Neuro: SENSORIUM/ORIENTATION: Yes alert Psych: COMMON NORMALS: cooperative and speech normal ACTIVITY/MOTOR BEHAVIOR: Yes appropriate eye contact SPEECH: Yes normal speech MOOD & AFFECT: Yes tearful Skin: COMMON NORMALS: no rashes or lesions noted GENERAL SKIN EXAM: no rashes or lesions noted Course Vital Signs: Vital signs: Vital Signs Temperature 97.7 F 09/08/22 18:57 Pulse Rate 76 09/08/22 18:57 Respiratory Rate 18 09/08/22 18:57 Blood Pressure 130/77 09/08/22 18:57 Pulse Oximetry 98 09/08/22 18:57 MDM - Recheck/Abnormal Lab/Rx Medical Decision Making Patient comes in today for complaints of exacerbation of chronic neuropathic pain. On exam patient has no obvious injuries or signs of infection. Vital signs were normal. Differential diagnosis includes but not limited to diabetic neuropathy, anxiety, malingering, MDD. Patient was given 4 mg of morphine IM and 60 mg of orphenadrine. Patient was encouraged to go home and rest and continue with routine medications and await her Lyrica refill. I did offer to write for some gabapentin as this would not be expensive but patient did not feel that it was effective. Discharge Plan Discharge Patient Disposition: Home Clinical Impression: DM neuropathy, painful Qualifiers: Diabetes mellitus type: type 2 Diabetes mellitus complication detail: with other neurological complication Qualified Code(s): E11.49 - Type 2 diabetes mellitus with other diabetic neurological complication Condition: Stable Prescriptions: No Action (DME) lancets [Fingerstix Lancets] Misc See Rx Instructions .ROUTE .MEDSUPPLY Qty: 200 5RF Rx Instructions: 4 times daily (DME) Portable Nebulizer System Device See Rx Instructions .ROUTE .MEDSUPPLY Qty: 1 0RF Rx Instructions: daily (DME) nebulizer accessories Kit See Rx Instructions .ROUTE .MEDSUPPLY Qty: 1 0RF Rx Instructions: daily oral insulin aspart U-100 [Novolog Flexpen U-100 Insulin] 100 unit/mL (3 mL) insulin pen See Rx Instructions SUBCUT TID Qty: 15 0RF Rx Instructions: 110-115=5U,116-120=7U,121-140=9U,141-160=11U,161-190=13U,191-210=15U,211-230=17U ,231-250=19U,251-270=21U,271-290=23U,291-310=25U (DME) OneTouch Ultra Test Strip See Rx Instructions .Route Qty: 200 5RF Rx Instructions: use 3-4 time day tramadol 50 mg tablet 50 mg PO TID PRN (Reason: Pain) turmeric root extract 500 mg capsule 1,000 mg PO TID Rx Instructions: dose change magnesium hydroxide 400 mg (170 mg magnesium) tablet,chewable 400 mg PO DAILY omega-3 fatty acids 500 mg capsule 500 mg PO DAILY vitamin E (dl, acetate) 400 unit capsule 400 unit PO DAILY pregabalin [Lyrica] 150 mg capsule 150 mg PO TID truvy 1 tab PO DAILY tizanidine 2 mg tablet 2 mg PO Q8H PRN (Reason: muscle spasticity) Qty: 180 0RF (DME) blood-glucose meter [OneTouch Ultra2 Meter] Kit See Rx Instructions .Route Qty: 1 0RF Rx Instructions: use 3-4 times daily (DME) lancets [OneTouch Delica Plus Lancet] 33 gauge misc See Rx Instructions .Route Qty: 100 5RF Rx Instructions: use 3-4 times day atorvastatin 40 mg tablet 40 mg PO DAILY Qty: 90 1RF allopurinol 300 mg tablet 300 mg PO BID Qty: 180 1RF doxepin 10 mg capsule 10 mg PO TID Qty: 270 1RF Trulicity 3 mg/0.5 mL pen injector 3 mg SUBCUT .weekly Qty: 6 1RF duloxetine 30 mg capsule,delayed release(DR/EC) 90 mg PO DAILY Qty: 270 1RF Jardiance 10 mg tablet 10 mg PO QAM Qty: 90 1RF estradiol [Estrace] 0.01 % (0.1 mg/gram) cream 2 g VAGINAL .2 times week 30 Days Qty: 126 1RF furosemide 40 mg tablet 40 mg PO BID Qty: 180 1RF Levemir FlexTouch U-100 Insuln 100 unit/mL (3 mL) insulin pen 60 unit SUBCUT BID Qty: 108 1RF potassium chloride 20 mEq tablet extended release See Rx Instructions PO .COMPLEX Qty: 288 1RF Rx Instructions: 2 tab on S,T,TH,S 3 tab M,W,F PO; carvedilol 6.25 mg tablet 6.25 mg PO BID Qty: 90 0RF permethrin [Elimite] 5 % cream 1 applic topical Q14D Qty: 60 0RF Rx Instructions: apply second treatment 14 days hydrocortisone 2.5 % cream 1 applic topical BID PRN (Reason: skin irritation) Qty: 30 0RF (DME) CPAP Qty: 1 0RF Rx Instructions: get items and send codes for signature (DME) FreeStyle Elena 2 [place] Misc See Rx Instructions .ROUTE .MEDSUPPLY Qty: 1 0RF Rx Instructions: As directed (DME) FreeStyle Elena 2 Sensor Kit See Rx Instructions .ROUTE .MEDSUPPLY Qty: 6 1RF Rx Instructions: change every 14 days Discharge Orders: Discharge ED (Routine); Ordered 09/08/22 Ordered By: Jasson Burgos Referrals: Nette Morocho, COLOR MATCHER-C [Primary Care Provider] - Discharge Diet: Usual diet Discharge Activity: Increase activity as tolerated Patient Instructions: Pain Management Activity Restrictions/Additional Instructions: Activity as tolerated. Use ice or heat for further pain adjunctive. Drink plenty of water with medication. Follow-up with primary care as needed. Return to ED for persistent symptoms or new concerns. Coding Level of Care Code ED Polish Compounder for Angel Fwd Exam Comprehensive
[2022-09-08 18:52] VITALS: RESP 18
[2022-09-08] MEDS: morphine 4 mg/mL SDV 1 mL IM (18:52)
[2022-09-08] MEDS: orphenadrine 30 mg/mL Inj 2 mL 60 MG IM (18:53)
[2022-09-08 18:57] VITALS: BP 130/77; PULSE 76; RESP 18; TEMP 36.5; O2SAT 98
== END 2022-09-08 18:58 | disposition home or self-care (01) ==
PROVIDERS: Emergency Provider Nurse Practitioner Family; PCP Nurse Practitioner
DX: E11.40 Type 2 diabetes mellitus with diabetic neuropathy, unspecified (principal); Z79.4 Long term (current) use of insulin
CPT/HCPCS: 96372; 99284; J2270; J2360

== ENCOUNTER → 2022-11-01 08:32 | Outpatient (BNVA) | payer MEDICARE, SELFPAY | PROVIDERS: PCP Nurse Practitioner; Visit Provider Nurse Practitioner | DX: I10 Essential (primary) hypertension (principal); E11.65 Type 2 diabetes mellitus with hyperglycemia; Z79.4 Long term (current) use of insulin | CPT/HCPCS: 80053; 80061; 81000; 83036 ==

== ENCOUNTER → 2022-12-03 14:47 | Outpatient (BNVA) | payer MEDICARE, OTHER, SELFPAY | PROVIDERS: PCP Nurse Practitioner; Visit Provider Internal Medicine Cardiovascular Disease | DX: I10 Essential (primary) hypertension (principal); I43 Cardiomyopathy in diseases classified elsewhere; G47.33 Obstructive sleep apnea (adult) (pediatric); E78.2 Mixed hyperlipidemia; E11.65 Type 2 diabetes mellitus with hyperglycemia; Z79.4 Long term (current) use of insulin; Z87.891 Personal history of nicotine dependence | CPT/HCPCS: 99214; Q3014 ==

== ENCOUNTER 2023-01-08 13:29 | Outpatient (CLI) | payer MEDICARE, OTHER, SELFPAY ==
--- NOTE | 2023-01-08 13:45 | USCV_ITS ---
Deneen Anaya Age: 62 Gender: F : 1960 Exam Date: 01/08/2023 14:08 Ordering Phys: Nette Morocho Technologist: EDEN [place] [facility] [place]: BRUIT Risk Factors: Previous Vascular Surgery: Right Brachial BP: / Left Brachial BP: / Right Left Velocity (cm/s) Spectral Plaque Velocity (cm/s) Spectral Plaque Syst/Diast Broadening Syst/Diast Broadening 112.50/18.70 Prox CCA 103.80/ 22.50 80.00/ 20.20 Mid CCA 104.90/ 21.40 74.90/ 16.20 Distal CCA 85.60 / 19.30 53.60/ 20.90 Prox ICA 107.20/ 26.50 80.00/ 25.10 Mid ICA 110.30/ 31.10 85.40/ 25.70 Distal ICA 105.20/ 32.90 109.60 ECA 106.20 0.76 ICA/CCA 1.05 Antegrade Vertebral Antegrade 59.70/ 14.10 cm/s 57.80/ 12.30 cm/s Tri Subclavian Tri 146.3 199.7 0 0 CONCLUSIONS Right ICA stenosis <50%. Left ICA stenosis <50%. Calcified moderate atheromatous plaque Normal antegrade Doppler flow noted in the right vertebral artery. Normal antegrade Doppler flow noted in the left vertebral artery. Jarred Son MD (Electronically Signed) Final Date: 08 January 2023 16:04 S
== END 2023-01-08 13:30 | disposition home or self-care (01) ==
PROVIDERS: PCP Nurse Practitioner; Visit Provider Nurse Practitioner
DX: R09.89 Other specified symptoms and signs involving the circulatory and respiratory systems (principal)
CPT/HCPCS: 93880

== ENCOUNTER → 2023-01-24 09:39 | Outpatient (BNVA) | payer MEDICARE, OTHER, SELFPAY | PROVIDERS: PCP Nurse Practitioner; Visit Provider Nurse Practitioner | DX: E11.65 Type 2 diabetes mellitus with hyperglycemia (principal); Z79.4 Long term (current) use of insulin; I10 Essential (primary) hypertension | CPT/HCPCS: 80053; 80061; 81000; 83036 ==

== ENCOUNTER 2023-02-13 11:52 | Outpatient (CLI) | payer MEDICARE, OTHER, SELFPAY ==
--- NOTE | 2023-02-13 11:45 | MR_ITS ---
WS: [id number] MRI BRAIN WITHOUT CONTRAST HISTORY: History of stroke 2015. Amnesia. Numbness. COMPARISON: 05/07/2018 TECHNIQUE: Diffusion imaging, multiplanar T1, T2 and FLAIR imaging obtained. No evidence for acute infarct or hemorrhage. [place]-white matter differentiation is normal. There is extensive T2 and FLAIR signal hyperintensities in the periventricular and subcortical white matter. Patchy areas of increased FLAIR signal surrounding the occipital horns. Signal abnormality ex tends into the corpus callosum. These findings have been previously described on multiple prior MRIs. More than typically expected for this age. Demyelination has been previously described as a possible etiology. There has been mild progression since prior study. Very minimal cerebral atrophy. Ventricles and extra-axial spaces are normal. No inferior displacement of cerebellar tonsils. The sella turcica and pituitary gland are unremarkabl e. Dural venous sinuses and port gamble of Alvarez demonstrate no abnormality on this unenhanced studies. Paranasal sinuses: Clear. Mastoid air cells: Normal. Calvarium and scalp: Intact. MR/MR head wo con* [id number] IMPRESSION: 1. Extensive white matter changes in a subcortical and periventricular distrib ution. Mild progression since 2018. These findings are more than expected for t ypical small vessel microvascular ischemic disease. Additional etiologies as pr eviously described such as demyelination or vasculitis should also be considere d. 2. No hemorrhage identified. 3. Very mild atrophy.
== END 2023-02-13 11:53 | disposition home or self-care (01) ==
LOC: RAD 11:55
PROVIDERS: PCP Nurse Practitioner; Visit Provider Nurse Practitioner
DX: R41.3 Other amnesia (principal); R20.0 Anesthesia of skin; Z86.73 Personal history of transient ischemic attack (TIA), and cerebral infarction without residual deficits; G31.9 Degenerative disease of nervous system, unspecified
CPT/HCPCS: 70551; 85651; 86140; 86160; 86162; 86235; 86255; 86376; 86431

== ENCOUNTER 2023-02-15 20:18 | Inpatient (IN) | payer MEDICARE, OTHER, SELFPAY ==
[2023-02-15 20:27] VITALS: BP 154/71; PULSE 99; RESP 22; TEMP 39.4; O2SAT 95
[2023-02-15 21:40] VITALS: BP 150/76; PULSE 105; RESP 14; TEMP 39.2; O2SAT 93
--- NOTE | 2023-02-15 22:00 | CTR_ITS ---
PROCEDURE INFORMATION: Exam: CT Head Without Contrast Exam date and time: 02/15/2023 10:09 PM Age: 62 years old Clinical indication: Other: Generalized weakness; Additional info: Fever weakness TECHNIQUE: Imaging protocol: Computed tomography of the head without contrast. Sagittal and coronal reformatted images were created and reviewed. Radiation optimization: All CT scans at this facility use at least one of these dose optimization techniques: automated exposure control; mA and/or kV adjustment per patient size (includes targeted exams where dose is matched to clinical indication); or iterative reconstruction. REPORTING DATA: Count of CT and Cardiac NM exams in prior 12 months: This patient has received 2 known CTs and 0 known cardiac nuclear medicine studies in the 12 months prior to the current study. COMPARISON: MR head wo con* [id number] 02/13/2023 12:14 PM RADIATION DOSE METRICS: Total DLP (mGy-cm): 1150.08 FINDINGS: Brain: No acute intracranial hemorrhage. No acute infarct. No intra-axial or extra-axial masses. [place]-white matter differentiation is preserved. No cerebral edema. No extra-axial fluid collections. No midline shift. No evidence for Chiari 1 malformation. Stable mildly decreased attenuation in the deep white matter, consistent with mild chronic microangiopathic change. Cerebral ventricles: No hydrocephalus. Paranasal sinuses: Visualized paranasal sinuses are clear. Mastoid air cells: Mastoid air cells are clear bilaterally. Orbital cavities: Globes and lenses, extraocular muscles, and optic nerves are intact bilaterally. No acute intraorbital abnormality. Nasal cavity: Mild right nasal septal deviation. Praveena bullosa of the left middle turbinate. Bones/joints: No acute fracture. Soft tissues: No acute abnormality of the extracranial soft tissues. CT/CT head wo con* [id number] IMPRESSION: 1. No acute abnormality of the brain. 2. Stable mild chronic white matter microangiopathic change. 3. Incidental/nonacute findings are listed in the report.
--- NOTE | 2023-02-15 22:00 | XRR_ITS ---
PROCEDURE INFORMATION: Exam: XR Chest Exam date and time: 02/15/2023 10:16 PM Age: 62 years old Clinical indication: Hyperventilation; Prior surgery; Additional info: Fever weakness TECHNIQUE: Imaging protocol: Radiologic exam of the chest. Views: 1 view. COMPARISON: CR XR chest 1V portable [id number] 01/06/2022 10:10 PM FINDINGS: Lungs: Lungs are clear bilaterally. Pleural spaces: No pleural effusion. No pneumothorax. Heart/Mediastinum: The cardiac silhouette and mediastinal contours are unremarkable. Vasculature: Stable vascular calcifications in the aorta. Bones/joints: Unremarkable for age. XR/XR chest 1V portable [id number] IMPRESSION: 1. No acute cardiopulmonary process. 2. Incidental/nonacute findings are listed in the report.
[2023-02-15 22:08] LABS: Basophils # 0.1 10^3/uL (0.0-0.1); Basophils % 0.4 %; Eosinophils % 0.2 %; Hematocrit 47.8 % (37.0-47.0); Hemoglobin 15.4 g/dL (11.5-15.3); Lymphocytes # 2.2 10^3/uL (0.8-4.8); Lymphocytes % 12.6 %; Mean Corpuscular HGB Conc 32.2 g/dL (30.0-36.0); Mean Corpuscular Hemoglobin 29.2 pg (28.0-34.0); Mean Corpuscular Volume 90.7 fl (81-99); Mean Platelet Volume 12.2 fL (7.4-10.4); Monocytes # 0.9 10^3/uL (0.2-0.9); Neutrophils # 14.07 10^3/uL (1.8-7.7); Neutrophils % 81.2 %; Nucleated Red Blood Cells % 0 %; Platelet Count 139 10^3/cmm (130-400); Red Blood Count 5.27 10^6/uL (4.1-5.3); Red Cell Distribution Width 14.8 % (12.1-15.1); White Blood Count 17.3 10^3/uL (4.0-10.0)
[2023-02-15 22:20] LABS: Lactate (Lactic Acid level) 1.9 mmol/L (0.5-2.2)
[2023-02-15 22:21] LABS: Alanine Aminotransferase 24 U/L (0-33); Albumin Level 4.2 g/dL (3.5-5.2); Alkaline Phosphatase 134 U/L (35-105); Anion Gap 17.8 (5-19); Aspartate Amino Transferase 27 U/L (0-32); Blood Urea Nitrogen 10 mg/dL (8-23); C Reactive Protein 134.8 mg/L (0.0-4.9); Carbon Dioxide 26 mmol/L (22-29); Chloride 94 mmol/L (98-107); Creatine Phosphokinase 112 U/L (26-192); Globulin 3.9 g/dL (1.3-4.6); Glomerular Filtration Rate 73.2 mL/min (90-130); Glucose 146 mg/dL (65-115); Osmolality Calculated 280 mOsm/kg (285-295); Potassium 3.8 mmol/L (3.5-5.1); Sodium 134 mmol/L (136-145); Total Bilirubin 0.5 mg/dL (0.15-1.2); Total Protein 8.1 g/dL (6.6-8.7)
--- NOTE | 2023-02-15 22:21 | ECG_ITS ---
[facility] Test Date: 2023-02-15 Pat Name: Deneen Anaya Department: Room: Gender: Female Cobbler Mckay: : 1960 Requested By: Giovany Seay Order Number: [id number] Steffany MD: Greyson Woods M.D. Measurements Intervals [place] Rate: 105 P: 66 [place]: 146 QRS: 21 QRSD: 96 T: 68 QT: 315 QTc: 417 Interpretive Statements SINUS TACHYCARDIA ABNORMAL RHYTHM ECG Compared to ECG 01/07/2022 00:25:55 Sinus rhythm no longer present Electronically Signed On 02-16-2023 7:12:25 CDT by Greyson Woods M.D. [id number]
[2023-02-15 22:28] LABS: Procalcitonin 0.13 ng/mL (0-0.5)
[2023-02-15] MEDS: sodium chloride 0.9% 1,000 ML 999 ML IV ×2 (22:32→23:50)
--- NOTE | 2023-02-15 22:45 | ED_ITS ---
HPI - Weakness General: Chief complaint: Weakness Stated complaint: sob, weak,eyes droopy Time Seen by Provider: 02/15/23 21:36 History of Present Illness: 62-year-old female who underwent a brain MRI 2 days ago for problems with aphasia. She evidently has a history of 2 prior strokes. She presents with generalized weakness since this afternoon. Her other symptoms from previous strokes had essentially resolved. She notes the weakness is equal side to side. Her says her legs are not working . She says that her upper extremities are weak as well. She was noted to have a 103 fever in triage. She felt cold at home she says, and was chilling. No cough, no vomiting or diarrhea. She does have a headache she says. MD Complaint: generalized weakness Onset (ago): hour(s) Duration: constant Location: generalized Migration: none Severity: moderate Quality: other Relieving factors: none Exacerbating factors: other Associated symptoms: Reports chills, fever(s) and headache(s); Denies chest pain, confusion, melena, decreased appetite, dysuria, nausea, rash, short of breath or vomiting Review of Systems Const: Reports: fever(s) and chills Card: Denies: chest pain GI: Denies: nausea, vomiting or melena : Denies: dysuria Neuro: Reports: headache(s); Denies: confusion PFSH ED PFSH: Medical History Anxiety Cardiomyopathy in diseases classified elsewhere Chronic gout of right foot Controlled type 2 diabetes mellitus with hyperglycemia, with long-term current use of insulin Diabetes mellitus with hyperglycemia, with long-term current use of insulin Essential (primary) hypertension Hypersomnia Mixed hyperlipidemia NICKO (obstructive sleep apnea) Radiculopathy, lumbar region Surgical History History of angioplasty History of section History of cholecystectomy History of colonoscopy History of lumpectomy of left breast History of shoulder surgery left 2021 History of tonsillectomy History of tubal ligation S/P LASIK surgery S/P rotator cuff surgery Family History Mother Cancer CAD (coronary artery disease) Father CAD (coronary artery disease) Social History Smoking and tobacco status: former smoker Second hand smoke exposure: No Smoking risk assessment/counseling performed?: No Alcohol intake: current Alcohol intake frequency: holidays/special occasions only Desire information about alcohol rehabilitation?: No Counseling given: No Desire information about substance/drug rehabilitation?: No Counseling given: No Caregiver/support person: No Lives independently: Yes Marital status: Number of children: 5 Current gender identity: Female Physical Exam Const: GENERAL APPEARANCE: cooperative and ill appearing (Mildly) HENMT: COMMON NORMALS: normocephalic and Normal external nose present HEAD & SCALP: normocephalic FACE & SINUS: normal facial exam and face symmetric NOSE: Normal external nose present Eye: COMMON NORMALS: Equal, round and reactive pupils present and EOMs intact bilaterally PUPIL: Yes Equal, round and reactive pupils present Chest: CHEST: Yes Symmetrical chest wall rise Resp: COMMON NORMALS: normal respiratory effort and clear to auscultation bilaterally AUSCULTATION: clear to auscultation bilaterally Cardio: COMMON NORMALS: regular rate and regular rhythm RATE: regular rate RHYTHM: regular rhythm GI: COMMON NORMALS: Normal to inspection, nondistended, normoactive bowel sounds present, Soft to palpation and non-tender PALPATION: Yes Soft to palpation Extremity: COMMON NORMALS: no pedal edema Neuro: NAVI COMA SCALE: document GCS findings Navi coma scale eye opening: Spontaneous [place] coma scale verbal response: Orientated Navi coma scale motor response: Obey commands Navi coma scale total score: 15 CRANIAL NERVES: Yes CN normal except as noted COORDINATION/BALANCE: [id number] test normal SPEECH: expressive aphasia (Mild) SENSORY EXAM: Yes extremities (Intact) MOTOR EXAM: Pronator motor function not present and no tremor noted COORDINATION: [id number] test normal Psych: COMMON NORMALS: mental status grossly normal and cooperative Procedures Lumbar Puncture Time Out Performed: Yes Patient Position: left lateral decubitus Skin Prep: Povidone-Iodine 1% Local Anesthetic: lidocaine 1% Amount of anesthesia used (mL): 5 Spinal Needle Gauge: 22G Interspace Used: L3-L4 Fluid Initially Obtained: clear Complications: none Course Consultations: Consultation #1: [facility] Telestroke Time: 03:35 Vital Signs: Vital signs: Vital Signs Temperature 98.1 F 02/16/23 16:00 Pulse Rate 81 02/16/23 16:00 Respiratory Rate 15 02/16/23 16:00 Blood Pressure 154/70 02/16/23 16:00 Pulse Oximetry 100 02/16/23 16:00 Oxygen Delivery Me thod 02/16/23 10:31 MDM - Weakness Medical Decision Making 62-year-old female with fever, generalized weakness, and headache. No other real symptoms on review of symptoms. White blood cell count is 17. CRP is significantly elevated at 135. Platelet count is normal at 139. CK1 12. Lactic acid is only 1.9. Creatinine is 0.8. Urinalysis is negative. COVID is negative. Chest x-ray does not show any acute findings. Head CT shows no acute findings. This is a case of a significant fever with generalized weakness with no known origin. Because of this, lumbar puncture was completed without comp lication. Results are pending. She has received 1 g of Rocephin for broad- spectrum coverage so far. Second gram of Rocephin given. She will also get vancomycin and acyclovir. CSF shows only 2 whites no reds. Protein and sugar are high. Patient still has a headache. Spoke with the hospitalist about this patient. Concern would be for brainstem stroke given bilateral symptoms with dizziness. We consulted the [facility] telestroke team, and recommendations were made for CTA to rule out posterior circulation visible thrombus, as she would be a candidate for emergent thrombectomy if this were the case. If this is negative, the recommend nonemergent MRI as a follow-up in this patient. We will proceed with admission if CTA is negative. Viral panel is still pending. Viral panel is negative. CTA is negative for any critical stenosis or unstable clot. The patient is feeling improved after DHE for her head. She has actually stood in the room. We will proceed with admission. Lab Data 02/15/23 21:48 02/15/23 21:48 Radiology Impressions Chest X-Ray 02/15/23 22:00 IMPRESSION: 1. No acute cardiopulmonary process. 2. Incidental/nonacute findings are listed in the report. Head CT 02/15/23 22:00 IMPRESSION: 1. No acute abnormality of the brain. 2. Stable mild chronic white matter microangiopathic change. 3. Incidental/nonacute findings are listed in the report. Head/Neck CTA 02/16/23 03:33 IMPRESSION: No large vessel stenosis or occlusion. IMPRESSION: 1. Normal right extracranial internal carotid artery by NASCET criteria. 2. Atherosclerotic disease at the origin of the left extracranial internal carotid artery with mild stenosis by NASCET criteria. 3. Patent bilateral vertebral arteries. 4. 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 5. Mild to moderate 50% stenosis at the origin of the left common carotid artery. THIS REPORT CONTAINS FINDINGS THAT MAY BE CRITICAL TO PATIENT CARE. The findings were verbally communicated via telephone conference with GIOVANY BORGES at 6:45 AM CDT on 02/16/2023. The findings were acknowledged and understood. REFERENCES: NASCET CRITERIA. The degree of stenosis in the cervical segment of the internal carotid artery is based on NASCET criteria. Normal is no stenosis. Mild is less than 50% stenosis. Moderate is 50-69% stenosis. Severe is 70% to 99% stenosis. Total occlusion is no detectable patent lumen. Laboratory Results WBC 17.3 10^3/uL (4.0-10.0) H 02/15/23 21:48 RBC 5.27 10^6/uL (4.1-5.3) 02/15/23 21:48 Hgb 15.4 g/dL (11.5-15.3) H 02/15/23 21:48 Hct 47.8 % (37.0-47.0) H 02/15/23 21:48 MCV 90.7 fl (81-99) 02/15/23 21:48 MCH 29.2 pg (28.0-34.0) 02/15/23 21:48 MCHC 32.2 g/dL (30.0-36.0) 02/15/23 21:48 RDW 14.8 % (12.1-15.1) 02/15/23 21:48 Plt Count 139 10^3/cmm (130-400) 02/15/23 21:48 MPV 12.2 fL (7.4-10.4) H 02/15/23 21:48 Neut % (Auto) 81.2 % 02/15/23 21:48 Lymph % (Auto) 12.6 % 02/15/23 21:48 [place] % (Auto) 5.0 % 02/15/23 21:48 Eos % (Auto) 0.2 % 02/15/23 21:48 Baso % (Auto) 0.4 % 02/15/23 21:48 Neut # (Auto) 14.07 10^3/uL (1.8-7.7) H 02/15/23 21:48 Lymph # (Auto) 2.2 10^3/uL (0.8-4.8) 02/15/23 21:48 [place] # (Auto) 0.9 10^3/uL (0.2-0.9) 02/15/23 21:48 Eos # (Auto) 0.0 10^3/uL (0.0-0.8) 02/15/23 21:48 Baso # (Auto) 0.1 10^3/uL (0.0-0.1) 02/15/23 21:48 Nucleated RBC % (auto) 0 % 02/15/23 21:48 Nucleated RBCs # 0.0 /100WBC 02/15/23 21:48 Sodium 134 mmol/L (136-145) L 02/15/23 21:48 Potassium 3.8 mmol/L (3.5-5.1) 02/15/23 21:48 Chloride 94 mmol/L (98-107) L 02/15/23 21:48 Carbon Dioxide 26 mmol/L (22-29) 02/15/23 21:48 Anion Gap 17.8 (5-19) 02/15/23 21:48 BUN 10 mg/dL (8-23) 02/15/23 21:48 Creatinine 0.8 mg/dL (0.5-0.9) 02/15/23 21:48 GFR Calculation 73.2 mL/min (90-130) L 02/15/23 21:48 Glucose 146 mg/dL (65-115) H 02/15/23 21:48 POC Glucose 112 mg/dL (70-110) H 02/15/23 23:49 Calculated Osmolality 280 mOsm/kg (285-295) L 02/15/23 21:48 Lactate 1.9 mmol/L (0.5-2.2) 02/15/23 21:48 Calcium 9.0 mg/dL (8.5-10.5) 02/15/23 21:48 Total Bilirubin 0.5 mg/dL (0.15-1.2) 02/15/23 21:48 AST 27 U/L (0-32) 02/15/23 21:48 ALT 24 U/L (0-33) 02/15/23 21:48 Alkaline Phosphatase 134 U/L (35-105) H 02/15/23 21:48 Creatine Kinase 112 U/L (26-192) 02/15/23 21:48 C-Reactive Protein 134.8 mg/L (0.0-4.9) H 02/15/23 21:48 Total Protein 8.1 g/dL (6.6-8.7) 02/15/23 21:48 Albumin 4.2 g/dL (3.5-5.2) 02/15/23 21:48 Globulin 3.9 g/dL (1.3-4.6) 02/15/23 21:48 Procalcitonin 0.13 ng/mL (0-0.5) 02/15/23 21:48 Urine Color Yellow (Yellow) 02/15/23 23:40 Urine Appearance Clear (CLEAR) 02/15/23 23:40 Urine pH 8 (5-7) H 02/15/23 23:40 Ur Specific [place] 1.005 (1.005-1.030) 02/15/23 23:40 Urine Protein Neg (Negative) 02/15/23 23:40 Urine Glucose (UA) 4+ (Normal) H 02/15/23 23:40 Urine Ketones Negative (Negative) 02/15/23 23:40 Urine Blood Neg (Negative) 02/15/23 23:40 Urine Nitrate Negative (Negative) 02/15/23 23:40 Urine Bilirubin Neg (Negative) 02/15/23 23:40 Prot Sulfosalicylic Acd Negative (Negative) 02/15/23 23:40 Urine Urobilinogen Norm mg/dL (Negative) 02/15/23 23:40 Ur Leukocyte Esterase Negative (Negative) 02/15/23 23:40 CSF Appearance Clear (CLEAR) 02/16/23 01:30 CSF Color Colorless (COLORLESS) 02/16/23 01:30 CSF WBC 2 /uL (0-5) 02/16/23 01:30 CSF RBC 0 10^3/uL (0-0) 02/16/23 01:30 CSF Mononuclear # Auto 0.001 10^3/uL (50-90) L 02/16/23 01:30 CSF Mononuclear WBCs % 50 % (50-90) 02/16/23 01:30 CSF Polynuclear WBCs # 0.001 10^3/uL (0-10) 02/16/23 01:30 CSF Polynuclear WBCs % 50 % (0-10) H 02/16/23 01:30 CSF Glucose 80 mg/dL (40-70) H 02/16/23 01:30 CSF Total Protein 63 mg/dL (15-45) H 02/16/23 01:30 Nasal Influ A H1 2009 PCR Not detected (NOT DETECT) 02/16/23 01:50 Adenovirus (PCR) Not detected (NOT DETECT) 02/16/23 01:50 C. pneumoniae DNA (PCR) Not detected (NOT DETECT) 02/16/23 01:50 Coronavirus 229E (PCR) Not detected (NOT DETECT) 02/16/23 01:50 Human Metapneumovir PCR Not detected (NOT DETECT) 02/16/23 01:50 Influenza A (H1) PCR Not detected (NOT DETECT) 02/16/23 01:50 Influenza A (H3) PCR Not detected (NOT DETECT) 02/16/23 01:50 Influenza Type A (PCR) Not detected (NOT DETECT) 02/16/23 01:50 Influenza Type B (PCR) Not detected (NOT DETECT) 02/16/23 01:50 M. pneumoniae (PCR) Not detected (NOT DETECT) 02/16/23 01:50 Parainfluenza 1 (PCR) Not detected (NOT DETECT) 02/16/23 01:50 Parainfluenza 2 (PCR) Not detected (NOT DETECT) 02/16/23 01:50 Parainfluenza 3 (PCR) Not detected (NOT DETECT) 02/16/23 01:50 Parainfluenza 4 (PCR) Not detected (NOT DETECT) 02/16/23 01:50 RSV Type A (PCR) Not detected (NOT DETECT) 02/16/23 01:50 RSV Type B (PCR) Not detected (NOT DETECT) 02/16/23 01:50 Entero/Rhino (PCR) Not detected (NOT DETECT) 02/16/23 01:50 SARS-CoV-2 (PCR) Not detected (NOT DETECT) 02/16/23 01:50 SARS-CoV-2 Ag (Rapid) negative (Negative) 02/15/23 22:43 Discharge Plan Discharge Patient Disposition: Admitted As Inpatient Admit Provider: Janis Israel Clinical Impression: Headache, Weakness generalized, Acute febrile illness Condition: Stable Coding Level of Care Code ED Partnership Marketing Manager for g Danis NIH stroke score NIHSS Level Of Consciousness - 1a: 0 Level Of Consciousness Questions - 1b: Both Correct Level Of Consciousness Commands - 1c: Both Correct Best Gaze - 2: Normal Visual [place]ordon - 3: No Visual Loss Facial Palsy - 4: Minor Paralysis Motor Arm Right - 5: No Drift Motor Arm Left - 5: No Drift Motor Leg Right - 6: Drift Motor Leg Left - 6: Drift Limb Ataxia - 7: Absent Sensory - 8: Normal Best Language - 9: Mild/Moderate Aphasia Dysarthia - 10: Mild/Moderate Dysarthia Extinction And Inattention - 11: 0 Score Total Score: 5
[2023-02-15 23:05] LABS: SARS Covid-2 Antigen negative (Negative)
[2023-02-15 23:10] VITALS: BP 141/82; PULSE 98; TEMP 38.9; O2SAT 98
[2023-02-15 23:51] LABS: Glucose Point of Care 112 mg/dL (70-110)
[2023-02-15 23:55] LABS: Add Urine Microscopic? NO; Charge for UA Resulting for Rev
[2023-02-15] MEDS: cefTRIAXone 1,000 MG in sodium chloride 0.9% (plus) 50 ML 100 MG IV (23:56)
[2023-02-16] VITALS (8 sets, daily range): BP systolic 120–154; BP diastolic 53–77; PULSE 77–95; RESP 15–18; TEMP 36.5–36.7; O2SAT 92–100; BMI 29.2
[2023-02-16 00:06] LABS: Bilirubin Urine Neg (Negative); Blood Urine Neg (Negative); Glucose Urine UA 4+ (Normal); Ketones Urine Negative (Negative); Leukocyte Esterase Urine Negative (Negative); Nitrate Urine Negative (Negative); Protein Urine Neg (Negative); Specific Gravity, Urine 1.005 (1.005-1.030); Sulfosalicylic Acid Urine Negative (Negative); Urine Appearance Clear (CLEAR); Urine Color Yellow (Yellow); Urobilinogen Urine Norm (Negative); pH Urine 8 (5-7)
[2023-02-16] MEDS: ondansetron 2 mg/ML SDV 2 mL 4 MG IVP ×2 (00:53→03:49)
[2023-02-16] MEDS: fentaNYL 50 mcg/mL INJ 2mL IVP (00:55)
[2023-02-16 02:00] LABS: Cyto Order Verification No Order
[2023-02-16 02:19] LABS: CSF Mononuclear # 0.001 10^3/uL (50-90); Glucose CSF 80 mg/dL (40-70); Mononuclear WBC CSF % 50 % (50-90); Polynuclear Cells ,CSF # 0.001 10^3/uL (0-10); Polynuclear WBC CSF % 50 % (0-10); Red Blood Cell CSF 0 10^3/uL (0-0); Total Protein CSF 63 mg/dL (15-45); White Blood Cell CSF 2 /uL (0-5)
[2023-02-16 02:25] LABS: Appearance CSF CLEAR (CLEAR); Color CSF COLORLESS (COLORLESS)
[2023-02-16] MEDS: cefTRIAXone 1,000 MG in sodium chloride 0.9% (plus) 50 ML 100 MG IV (03:13)
--- NOTE | 2023-02-16 03:33 | CTR_ITS ---
PROCEDURE INFORMATION: Exam: CTA Head With Contrast, Arteriography Exam date and time: 02/16/2023 5:31 AM Age: 62 years old Clinical indication: Weakness TECHNIQUE: Imaging protocol: Computed tomographic angiography of the head with contrast. Exam focused on the arteries. 3D rendering (Not supervised by radiologist): MIP and/or 3D reconstructed images were created by the technologist. Radiation optimization: All CT scans at this facility use at least one of these dose optimization techniques: automated exposure control; mA and/or kV adjustment per patient size (includes targeted exams where dose is matched to clinical indication); or iterative reconstruction. Contrast material: OMNI 350; Contrast volume: 100 ml; Contrast route: INTRAVENOUS (IV); REPORTING DATA: Count of CT and Cardiac NM exams in prior 12 months: This patient has received 3 known CTs and 0 known cardiac nuclear medicine studies in the 12 months prior to the current study. COMPARISON: CT head wo con* [id number] 02/15/2023 10:09 PM RADIATION DOSE METRICS: Total DLP (mGy-cm): 542.26 FINDINGS: ANTERIOR CIRCULATION: Right internal carotid artery: The intracranial segment is patent with no significant stenosis. No aneurysm. Right middle cerebral artery: No occlusion or significant stenosis. No aneurysm. Right anterior cerebral artery: No occlusion or significant stenosis. No aneurysm. Left internal carotid artery: The intracranial segment is patent with no significant stenosis. No aneurysm. Left middle cerebral artery: No occlusion or significant stenosis. No aneurysm. Left anterior cerebral artery: No occlusion or significant stenosis. No aneurysm. POSTERIOR CIRCULATION: Right vertebral artery: No occlusion or significant stenosis. No aneurysm. Left vertebral artery: No occlusion or significant stenosis. No aneurysm. Basilar artery: No occlusion or significant stenosis. No aneurysm. Right posterior cerebral artery: No occlusion or significant stenosis. No aneurysm. Left posterior cerebral artery: No occlusion or significant stenosis. No aneurysm. There is origin from the carotid circulation, anatomic variant. Brain: No acute intracranial hemorrhage. No significant white matter disease. No edema. There are mild confluent periventricular hypodensities consistent with chronic microischemic changes of white matter. Cerebral ventricles: No ventriculomegaly. Bones/joints: No acute fracture. Soft tissues: Unremarkable. PROCEDURE INFORMATION: Exam: CTA Neck With Contrast Exam date and time: 02/16/2023 5:31 AM Age: 62 years old Clinical indication: Weakness TECHNIQUE: Imaging protocol: Computed tomographic angiography of the neck with contrast. 3D rendering (Not supervised by radiologist): MIP and/or 3D reconstructed images were created by the technologist. Radiation optimization: All CT scans at this facility use at least one of these dose optimization techniques: automated exposure control; mA and/or kV adjustment per patient size (includes targeted exams where dose is matched to clinical indication); or iterative reconstruction. Contrast material: OMNI 350; Contrast volume: 100 ml; Contrast route: INTRAVENOUS (IV); REPORTING DATA: Count of CT and Cardiac NM exams in prior 12 months: This patient has received 3 known CTs and 0 known cardiac nuclear medicine studies in the 12 months prior to the current study. COMPARISON: CT angio neck [id number] 10/30/2018 8:49 AM RADIATION DOSE METRICS: Total DLP (mGy-cm): 542.26 FINDINGS: Right common carotid artery: No significant stenosis. No dissection or occlusion. Right internal carotid artery: No significant stenosis of the extracranial segment. No dissection or occlusion. Right external carotid artery: No occlusion or significant stenosis of the origin. Left common carotid artery: 50% stenosis at the origin of the left CCA. No dissection or occlusion. Left internal carotid artery: Atheromatous plaque of the extracranial segment with mild stenosis. No dissection or occlusion. Left external carotid artery: No occlusion or significant stenosis of the origin. Right vertebral artery: No significant stenosis. No dissection or occlusion. Left vertebral artery: No significant stenosis. No dissection or occlusion. The left vertebral artery originates from the aortic arch abutting the origin of the left subclavian artery. Brachiocephalic artery: There is moderate stenosis at the origin of the brachiocephalic artery of approximately 60%. Left subclavian artery: There is mild stenosis at the origin of the left subclavian artery. Soft tissues: No significant soft tissue swelling. Bones/joints: No acute fracture. CT/CT angio headneck* [id number] IMPRESSION: No large vessel stenosis or occlusion. IMPRESSION: 1. Normal right extracranial internal carotid artery by NASCET criteria. 2. Atherosclerotic disease at the origin of the left extracranial internal carotid artery with mild stenosis by NASCET criteria. 3. Patent bilateral vertebral arteries. 4. 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 5. Mild to moderate 50% stenosis at the origin of the left common carotid artery. THIS REPORT CONTAINS FINDINGS THAT MAY BE CRITICAL TO PATIENT CARE. The findings were verbally communicated via telephone conference with RENEA BORGES at 6:45 AM CDT on 02/16/2023. The findings were acknowledged and understood. REFERENCES: NASCET CRITERIA. The degree of stenosis in the cervical segment of the internal carotid artery is based on NASCET criteria. Normal is no stenosis. Mild is less than 50% stenosis. Moderate is 50-69% stenosis. Severe is 70% to 99% stenosis. Total occlusion is no detectable patent lumen.
[2023-02-16 03:38] LABS: Adenovirus Not Detected (NOT DETECT); Chlamydia Pneumoniae Not Detected (NOT DETECT); Coronavirus 229E,HKU1,NL63,OC4 Not Detected (NOT DETECT); Human Metapneumovirus Not Detected (NOT DETECT); Human Rhinovirus/Enterovirus Not Detected (NOT DETECT); Influenza A Not Detected (NOT DETECT); Influenza A H1 Not Detected (NOT DETECT); Influenza A H1-2009 Not Detected (NOT DETECT); Influenza A H3 Not Detected (NOT DETECT); Influenza B Not Detected (NOT DETECT); Mycoplasma Pneumoniae Not Detected (NOT DETECT); Parainfluenza Virus Type 1 Not Detected (NOT DETECT); Parainfluenza Virus Type 2 Not Detected (NOT DETECT); Parainfluenza Virus Type 3 Not Detected (NOT DETECT); Parainfluenza Virus Type 4 Not Detected (NOT DETECT); Respiratory Syncytial Virus A Not Detected (NOT DETECT); Respiratory Syncytial Virus B Not Detected (NOT DETECT); SARS-COV-2 Not Detected (NOT DETECT)
[2023-02-16] MEDS: iohexol 350 mg/mL 500 mL Btl (per mL) IV (03:39)
[2023-02-16] MEDS: dexamethasone 4 mg/mL INJ 8 MG IVP (03:53)
[2023-02-16] MEDS: dihydroergotamine 1 mg/mL Inj 0.5 MG IVP (03:56)
[2023-02-16] MEDS: acyclovir 1,000 MG in sodium chloride 0.9% 250 ML 270 MG IV (04:06)
[2023-02-16] MEDS: sodium chloride 0.9% 1,000 ML 999 ML IV (04:06)
[2023-02-16] MEDS: vancomycin 1,000 MG in sodium chloride 0.9% 250 ML 250 MG IV ×2 (05:44→18:35)
--- NOTE | 2023-02-16 06:53 | P.HP_ITS ---
Providers/Chief Complaint Primary Care Provider: MONSE Jennings-C Chief Complaint: sob, weak,eyes droopy History of Present Illness 62-year-old female past medical history of anxiety, cardiomyopathy, gout, type 2 diabetes mellitus currently on insulin, hypertension, hyperlipidemia, obstructive sleep apnea, lumbar radiculopathy presented to the hospital today for generalized weakness that she says started yesterday. She says she first had a headache and then started to have generalized weakness. Describes generalized weakness more of a heaviness throughout her limbs and that she cannot move them. She has a history of migraines and when she gets a migraine that lasts for a few days at a time. She is told her that her legs are not working and her had to almost carry her into the car to bring her to the hospital. She says yesterday she had an elevated temperature and today on arrival to the ER she was 103 in triage. She says she was having chills at home. Denies a cough, vomiting, diarrhea, abdominal pain, chest pain, shortness of breath. Denies any recent illnesses. Denies any tick bites, swimming in [place], walking [place]. He has never experienced symptoms like this before. No history of multiple sclerosis in the family. She has had a history of 2 strokes in the past and most recently underwent a brain MRI for problems with aphasia. MRI brain showed extensive white matter changes in subcortical and periventricular distribution. Mild progression since 2018. His findings are more than expected for typical small vessel microvascular ischemic disease. Additional etiologies as previously described as demyelination or vasculitis should also be considered. No hemorrhage identified, very mild atrophy seen. Chest x-ray showed no acute cardiopulmonary process, head CT showed no acute abnormality in the brain, stable mild chronic white matter microangiopathic change. He had carotid Dopplers done which showed right and left ICA stenosis less than 50%. Work-up in the ER reveals WBC 17.3, hemoglobin 15.3, ESR 25, sodium 134, chloride 94, creatinine 0.8. Lactic 1.9, alkaline phos is 134, C-reactive protein 134. UA negative. Lumbar puncture was performed by ER physician which showed mildly elevated protein and glucose. Aspiratory viral panel negative. She recently had a vasculitis work-up done on 28 January which showed CHEMICAL ECONOMIST antibody positive and rest was negative. In the ER today patient was given 2 g of Rocephin, started on IV acyclovir, dexamethasone, vancomycin for possible meningitis?. DHE x1 given for migraine headache. Blood cultures drawn, VNAIA screen with reflex ordered stat. NIH stroke was 5 on arrival. Case was discussed with on-call telestroke team at [facility] who recommended to do a CTA head and neck to rule out posterior circulation thrombus in which case she would be a candidate for thrombectomy. CT head neck is negative at this time. Patient will be admitted to the hospital at this point for MRI brain as recommended by neuro stroke team. Medications/Allergies Home Medications Medication Instructions Recorded Confirmed Last Taken Type magnesium hydroxide 400 mg (170 mg 400 mg PO DAILY 12/27/19 01/28/23 05/08/20 History magnesium) chewable tablet tramadol 50 mg tablet 50 mg PO TID PRN Pain 12/27/19 01/28/23 05/08/20 History turmeric root extract 500 mg 1,000 mg PO TID 12/27/19 01/28/23 05/08/20 History capsule pregabalin 150 mg capsule (Lyrica) 150 mg PO TID 01/11/20 01/28/23 05/08/20 History CPAP #1 ea 02/05/20 01/28/23 Unknown Rx lancets (Fingerstix Lancets) #200 ea 06/27/20 01/28/23 Unknown Rx nebulizer accessories #1 ea 08/18/20 01/28/23 Unknown Rx blood-glucose meter (OneTouch #1 ea 09/18/21 01/28/23 Unknown Rx Ultra2 Meter kit) lancets 33 gauge (OneTouch Delica #100 ea 09/18/21 01/28/23 Unknown Rx Plus Lancet) flash glucose scanning reader #1 ea 08/29/22 01/28/23 Unknown Rx (FreeStyle Elena 2 [place]) nebulizer and compressor (Portable #1 ea 09/19/22 01/28/23 Unknown Rx Nebulizer System) fluticasone propionate 50 1 spray intranasal DAILY PRN 09/28/22 01/28/23 Unknown Rx mcg/actuation nasal allergy symptoms #16 grams spray,suspension (Flonase Allergy Relief) duloxetine 30 mg capsule,delayed 90 mg PO DAILY #270 caps 11/05/22 01/28/23 Unknown Rx release empagliflozin 10 mg tablet 10 mg PO QAM #90 tabs 11/05/22 01/28/23 Unknown Rx (Jardiance) estradiol 0.01% (0.1 mg/gram) 2 g vaginal .2 times week 30 days 11/05/22 01/28/23 Unknown Rx vaginal cream (Estrace) #126 grams flash glucose sensor (FreeStyle #6 ea 11/05/22 01/28/23 Unknown Rx Elena 2 Sensor kit) furosemide 40 mg tablet 40 mg PO BID #180 tabs 11/05/22 01/28/23 Unknown Rx blood sugar diagnostic (OneTouch #200 ea 12/01/22 01/28/23 Unknown Rx Ultra Test strips) carvedilol 6.25 mg tablet 6.25 mg PO .QPM 12/03/22 01/28/23 Unknown History doxepin 10 mg capsule 10 mg PO DAILY 12/03/22 01/28/23 Unknown History potassium chloride 20 mEq 20 meq PO BID 12/03/22 01/28/23 Unknown History tablet,extended release insulin aspart U-100 100 unit/mL See Rx Instructions SUBCUT TID #15 12/19/22 01/28/23 Unknown Rx (3 mL) subcutaneous pen (Novolog mL FlexPen U-100 Insulin aspart) allopurinol 300 mg tablet 300 mg PO BID #180 tabs 01/28/23 01/28/23 Unknown Rx atorvastatin 40 mg tablet 40 mg PO DAILY #90 tabs 01/28/23 01/28/23 Unknown Rx celecoxib 200 mg capsule 200 mg PO DAILY 01/28/23 01/28/23 Unknown History dulaglutide 4.5 mg/0.5 mL 4.5 mg (0.5 mL) SUBCUT .weekly #6 01/28/23 01/28/23 Unknown Rx subcutaneous pen injector mL (Trulicity) insulin degludec 200 unit/mL (3 60 unit (0.3 mL) SUBCUT BID #108 mL 01/28/23 01/28/23 Unknown Rx mL) subcutaneous pen (Tresiba FlexTouch U-200 insulin) Allergies Allergy/AdvReac Type Severity Reaction Status Date / Time divalproex sodium Allergy Unknown Unknown Verified 01/28/23 11:17 [From Depakote] codeine Allergy rash Verified 01/28/23 11:17 metformin Allergy Unknown Verified 01/28/23 11:17 naproxen Allergy rash Verified 01/28/23 11:17 phenytoin [From Dilantin] Allergy rash Verified 01/28/23 11:17 PFSH Acute PFSH: Medical History Anxiety Cardiomyopathy in diseases classified elsewhere Chronic gout of right foot Controlled type 2 diabetes mellitus with hyperglycemia, with long-term current use of insulin Diabetes mellitus with hyperglycemia, with long-term current use of insulin Essential (primary) hypertension Hypersomnia Mixed hyperlipidemia NICKO (obstructive sleep apnea) Radiculopathy, lumbar region Surgical History History of angioplasty History of section History of cholecystectomy History of colonoscopy History of lumpectomy of left breast History of shoulder surgery left 2021 History of tonsillectomy History of tubal ligation S/P LASIK surgery S/P rotator cuff surgery Family History Mother Cancer CAD (coronary artery disease) Father CAD (coronary artery disease) Social History Smoking and tobacco status: former smoker Second hand smoke exposure: No Smoking risk assessment/counseling performed?: No Alcohol intake: current Alcohol intake frequency: holidays/special occasions only Desire information about alcohol rehabilitation?: No Counseling given: No Desire information about substance/drug rehabilitation?: No Counseling given: No Caregiver/support person: No Lives independently: Yes Marital status: Number of children: 5 Current gender identity: Female Vitals/I&O/Wt Last Vital Signs Temp 102.1 F H 02/15/23 23:10 Pulse 87 02/16/23 06:38 Resp 16 02/16/23 05:45 BP 120/69 02/16/23 06:38 Pulse Ox 92 02/16/23 06:38 O2 Del Method 02/16/23 06:38 02/15/23 02/15/23 02/16/23 14:59 22:59 06:59 Intake Total 2370 / 2370 Balance 2370 / 2370 Weight last 48 hrs Weight 69.853 kg Physical Exam Narrative: General: Alert oriented x3, patient seen laying in bed flat complaining of a headache. at bedside. HEENT: Normocephalic, atraumatic, EOMI, breathing normally and comfortably on room air. Cardio: Regular rate rhythm, normal S1-S2, Respiratory: Good bilateral air entry, no wheezes no rhonchi appreciated GI: Abdomen soft, nontender, nondistended, bowel sounds + Behavior: Appropriate and cooperative Extremities: No edema Neuro: Cranial nerves II to XII intact, no aphasia noted, strength upper extremity 4 out of 5, bilateral lower extremity 4 out of 5. [id number] is normal. Urinalysis normal at this time. No gross focal neurological deficits. Data 02/15/23 21:48 02/15/23 21:48 Micro: Microbiology 02/15/23 22:28 Blood Culture - Preliminary Blood SPECIMEN COLLECTED 02/15/23 22:25 Blood Culture - Preliminary Blood SPECIMEN COLLECTED A&P Assessment and plan (1) Diabetes mellitus with hyperglycemia, with long-term current use of insulin: (2) Essential (primary) hypertension: (3) NICKO (obstructive sleep apnea): (4) Anxiety: (5) Mixed hyperlipidemia: (6) Controlled type 2 diabetes mellitus with hyperglycemia, with long-term curre nt use of insulin: (7) Migraine: (8) Gout: (9) General weakness: (10) Headache: (11) CVA (cerebrovascular accident): (12) Hypertension: (13) Hyperlipidemia: Plan #Generalized weakness #Headache with history of migraines #Possible brainstem migraine #Fever of unknown origin, viral meningitis? #History of anxiety #Type 2 diabetes mellitus insulin-dependent #Hypertension #Hyperlipidemia #Obstructive sleep apnea #History of stroke in the past with no neurological deficits -Differential is quite broad at this point. There is a possibility of brainstem migraine given patient's symptoms however fever cannot be explained at this time. Reviewing LP results it seems there could be a viral component. Respiratory viral panel is negative. -I would continue acyclovir every 8 hours at this time, vancomycin and ceftriaxone and de-escalate as per culture data available ? Check HSV CSF, HIV ? Test for syphilis ? Carbohydrate consistent diet ? Hold Trulicity at this time ? Continue duloxetine ? Continue allopurinol, atorvastatin, Coreg -Hold pregabalin at this time ? Continue Levemir 15 units daily ? Hold diuretics at this time. Patient appears dehydrated ? Continue on IV fluids 75 cc/h. Patient did get 2 L normal saline bolus on arr ival to ER ? Check blood cultures, urine culture ? MRI brain without contrast in a.m. as per neuro recommendations ? Consider infectious disease consult ? Weakness is generalized and not focal. Low suspicion for multiple sclerosis -PT OT -Tylenol for fever every 6 hours as needed -At this point patient's headache is better, speech is better. Weakness is also better after getting DHE for her headache. There is a possibility her weakness may be related to migraine. Full code SCDs, heparin SQ twice daily Attestations Medical Necessity Statement*: will cross > 2 midnight stay Other Coding Information Focused coding review requested Diagnoses Diabetes mellitus with hyperglycemia, with long-term current use of insulin E11.65; Z79.4 Essential (primary) hypertension I10 NICKO (obstructive sleep apnea) G47.33 Anxiety F41.9 Mixed hyperlipidemia E78.2 Controlled type 2 diabetes mellitus with hyperglycemia, with long-term current use of insulin E11.65; Z79.4 Migraine G43.909 Gout M10.9 General weakness R53.1 Headache R51.9 CVA (cerebrovascular accident) I63.9 Hypertension I10 Hyperlipidemia E78.5
--- NOTE | 2023-02-16 07:16 | PC.PHAR ---
PHARMACY TO DOSE VANCOMYCIN 1000 MG Q18H Pharmacokinetic dosing service Date: Time: Objective: Patient: Floor: Age: 62 yo Serum creatinine: 0.8 mg/dL Height: 59.8 Inches Weight (kg): 70 Diagnosis: Relevant medical/social history: Cultures and sensitivities: Other labs: Assessment: IBW (kg): 45.35 Dosing wt(kg): 70 Estimated Creatinine clearance (ml/min): 65.2 CRCL method: Cockcroft and Gault using adjusted body weight Drug selected: Vancomycin Loading dose (mg): Vd (liters): 49.0 (factor used: 0.7 L/kg) Eugenio (hr-1): 0.059 Half life (hrs): 11.75 CLvanco=?? 2.891 L/hr Recommended dose: 1000 mg Interval: 18 hrs Infusion time (hrs): 1 Predicted peak (mcg/mL): 30.3 Predicted trough (mcg/mL): 11.11 Total body weight is being used for vancomycin dosing. Recommendations: Give Vancomycin 1000 mg q 18 hrs with an expected Cpeak of 30.3 mcg/ml and an expected Ctrough of 11.11 mcg/ml AUC 0-24 /ADAM Data: ADAM 0.5 mcg/mL:?? AUC/ADAM:? 922.4 ADAM 1.0 mcg/mL:?? AUC/ADAM:? 461.2 --------- ADAM 1.5 mcg/mL:?? AUC/ADAM:? 307.5 ADAM 2.0 mcg/mL:?? AUC/ADAM:? 230.6 Thank you for the consult, will continue to follow.
--- NOTE | 2023-02-16 07:18 | PC.PHAR ---
PHARMACY TO DOSE VANCOMYCIN 1000 MG Q18H Pharmacokinetic dosing service Objective: Patient: Floor: Age: 62 yo Serum creatinine: 0.8 mg/dL Height: 59.8 Inches Weight (kg): 70 Assessment: IBW (kg): 45.35 Dosing wt(kg): 70 Estimated Creatinine clearance (ml/min): 65.2 CRCL method: Cockcroft and Gault using adjusted body weight Drug selected: Vancomycin Loading dose (mg): Vd (liters): 49.0 (factor used: 0.7 L/kg) Eugenio (hr-1): 0.059 Half life (hrs): 11.75 CLvanco=?? 2.891 L/hr Recommended dose: 1000 mg Interval: 18 hrs Infusion time (hrs): 1 Predicted peak (mcg/mL): 30.3 Predicted trough (mcg/mL): 11.11 Total body weight is being used for vancomycin dosing. Recommendations: Give Vancomycin 1000 mg q 18 hrs with an expected Cpeak of 30.3 mcg/ml and an expected Ctrough of 11.11 mcg/ml AUC 0-24 /ADAM Data: ADAM 0.5 mcg/mL:?? AUC/ADAM:? 922.4 ADAM 1.0 mcg/mL:?? AUC/ADAM:? 461.2 --------- ADAM 1.5 mcg/mL:?? AUC/ADAM:? 307.5 ADAM 2.0 mcg/mL:?? AUC/ADAM:? 230.6 Thank you for the consult, will continue to follow.
[2023-02-16] MEDS: heparin 5,000 unit/mL INJ 1 mL 5000 UNIT SUBCUT ×2 (07:30→18:06)
[2023-02-16 08:29] LABS: Procalcitonin 0.27 ng/mL (0-0.5)
[2023-02-16 08:30] LABS: Estmated Average Glucose 183; Thyroid Stimulating Hormone 0.62 uIU/mL (0.27-4.20)
[2023-02-16 08:40] LABS: HIV 1 & 2 Antibody Non-Reactive (Non-Reactiv); HIV 1 & 2 Antigen Non-Reactive (Non-Reactiv)
[2023-02-16] MEDS: meropenem 500 MG in sodium chloride 0.9% (plus) 50 ML 100 MG IV ×2 (10:34→16:51)
[2023-02-16] MEDS: sodium chloride 0.9% 1,000 ML 75 ML IV (10:35)
[2023-02-16] MEDS: pantoprazole DR 40 mg Tablet PO (10:35)
[2023-02-16 11:27] LABS: Glucose Point of Care 162 mg/dL (70-110)
[2023-02-16] MEDS: insulin lispro 100 unit/1 mL SUBCUT ×3 (13:18→21:02)
[2023-02-16] MEDS: acyclovir 500 MG in sodium chloride 0.9% (plus) 100 ML 110 MG IV ×2 (13:43→21:01)
[2023-02-16 17:18] LABS: Glucose Point of Care 202 mg/dL (70-110)
[2023-02-16] MEDS: TRAMadol 50 mg Tablet PO (18:05)
[2023-02-16] MEDS: allopurinol 300 mg Tablet PO (18:06)
[2023-02-16] MEDS: carvedilol 6.25 mg Tablet PO (18:06)
[2023-02-16 20:47] LABS: Glucose Point of Care 220 mg/dL (70-110)
[2023-02-16] MEDS: pregabalin 150 mg Capsule PO (21:03)
[2023-02-17] VITALS (10 sets, daily range): BP systolic 130–170; BP diastolic 65–76; PULSE 69–89; RESP 14–17; TEMP 36.4–36.6; O2SAT 94–100
[2023-02-17] MEDS: meropenem 500 MG in sodium chloride 0.9% (plus) 50 ML 100 MG IV ×3 (00:13→16:20)
[2023-02-17] MEDS: sodium chloride 0.9% 1,000 ML 75 ML IV (00:13)
[2023-02-17] MEDS: acyclovir 500 MG in sodium chloride 0.9% (plus) 100 ML 110 MG IV (04:15)
[2023-02-17 05:34] LABS: Basophils % 0.1 %; Hematocrit 36.3 % (37.0-47.0); Hemoglobin 11.7 g/dL (11.5-15.3); Lymphocytes # 2.2 10^3/uL (0.8-4.8); Lymphocytes % 15.7 %; Mean Corpuscular HGB Conc 32.2 g/dL (30.0-36.0); Mean Corpuscular Hemoglobin 29.6 pg (28.0-34.0); Mean Corpuscular Volume 91.9 fl (81-99); Mean Platelet Volume 12.4 fL (7.4-10.4); Monocytes # 0.8 10^3/uL (0.2-0.9); Monocytes % 5.7 %; Neutrophils # 10.72 10^3/uL (1.8-7.7); Neutrophils % 77.9 %; Nucleated Red Blood Cells % 0 %; Platelet Count 115 10^3/cmm (130-400); Red Blood Count 3.95 10^6/uL (4.1-5.3); Red Cell Distribution Width 15.1 % (12.1-15.1); White Blood Count 13.8 10^3/uL (4.0-10.0)
[2023-02-17 06:14] LABS: Alanine Aminotransferase 15 U/L (0-33); Albumin Level 3.1 g/dL (3.5-5.2); Alkaline Phosphatase 118 U/L (35-105); Anion Gap 11.5 (5-19); Aspartate Amino Transferase 15 U/L (0-32); Blood Urea Nitrogen 13 mg/dL (8-23); Carbon Dioxide 19 mmol/L (22-29); Chloride 104 mmol/L (98-107); Creatinine Clr Calc Pharmacy 102.9739; Globulin 2.9 g/dL (1.3-4.6); Glomerular Filtration Rate 125.9 mL/min (90-130); Glucose 146 mg/dL (65-115); Magnesium 2.3 mg/dL (1.7-2.3); Osmolality Calculated 275 mOsm/kg (285-295); Phosphorus 2.4 mg/dL (2.5-4.5); Potassium 3.5 mmol/L (3.5-5.1); Sodium 131 mmol/L (136-145); Total Bilirubin 0.2 mg/dL (0.15-1.2)
[2023-02-17] MEDS: heparin 5,000 unit/mL INJ 1 mL 5000 UNIT SUBCUT ×2 (06:32→18:09)
[2023-02-17 06:52] LABS: Glucose Point of Care 137 mg/dL (70-110)
--- NOTE | 2023-02-17 07:44 | PM.PN ---
Subjective Subjective: Patient was seen and examined this morning, she has been afebrile overnight, denied any, significant complaint, ambulating well, denied any weakness in any body part. Medications: Medication Review Details: Generic Name Dose Route Start Last Admin Trade Name Stephanie PRN Reason Stop Dose Admin Allopurinol 300 mg 02/16/23 18:00 02/16/23 18:06 Allopurinol 300 Mg Tablet PO 300 mg BID SATNAM Administration Carvedilol 6.25 mg 02/16/23 18:00 02/16/23 18:06 Carvedilol 6.25 Mg Tablet PO 6.25 mg QPM SATNAM Administration Heparin Sodium (Po rcine) 5,000 unit 02/16/23 07:00 02/17/23 06:32 Heparin 5,000 Un it/Ml Inj 1 Ml SUBCUT 5,000 unit Q12H SATNAM Administration Sodium Chloride 1,000 mls @ 75 ml s/hr 02/16/23 07:00 02/17/23 00:13 Sodium Chloride 0.9% IV 75 mls/hr .[id number] SATNAM Administration Vancomycin HCl 1,0 00 mg/ 250 mls @ 250 mls /hr 02/16/23 18:00 02/16/23 19:42 Sodium Chloride IV Infused Q18H SATNAM Infusion Protocol Meropenem 500 mg/ Sodium 50 mls @ 100 mls/ hr 02/16/23 08:30 02/17/23 00:52 Chloride IV Infused Q8H SATNAM Infusion Protocol Insulin Human Lisp ro 0 unit 02/16/23 08:00 02/16/23 21:02 Insulin Lispro 1 00 Unit/1 Ml SUBCUT 6 unit WM&BEDTIME SATNAM Administration Protocol Pantoprazole Sodiu m 40 mg 02/16/23 09:00 02/16/23 10:[address] 40 Mg Tablet PO 40 mg DAILY SATNAM Administration Pregabalin 150 mg 02/16/23 21:00 02/16/23 21:03 Pregabalin 150 M g Capsule PO 150 mg TID SATNAM Administration Tramadol HCl 50 mg 02/16/23 17:18 02/16/23 18:05 Tramadol 50 Mg T ablet PO 50 mg TID PRN Administration Pain Vitals/I&O/Wt Last Vital Signs Temp 97.7 F 02/17/23 04:00 Pulse 89 02/17/23 06:00 Resp 17 02/17/23 04:00 BP 165/71 02/17/23 04:00 Pulse Ox 97 02/17/23 04:00 O2 Del Method 02/17/23 04:00 02/16/23 02/17/23 02/17/23 22:59 06:59 14:59 Intake Total 1000 / 2300 1160 / 3460 Output Total 1350 / 1350 Balance -350 / 950 1160 / 2110 Weight last 48 hrs Weight 68.039 kg Weight 69.853 kg Physical Exam Const: COMMON NORMALS: patient oriented x3 HENMT: COMMON NORMALS: normocephalic and atraumatic HEAD & SCALP: normocephalic and atraumatic Resp: COMMON NORMALS: clear to auscultation bilaterally EFFORT & INSPECTION: Yes symmetric chest movement AUSCULTATION: clear to auscultation bilaterally Cardio: COMMON NORMALS: regular rate, regular rhythm, S1 normal heart sound present, S2 normal heart sound present, No gallops present (Cardio), No murmurs present (Cardio), No rub (Cardio) and Peripheral pulses 2+ throughout RATE: regular rate RHYTHM: regular rhythm HEART SOUNDS: S1 normal heart sound present and S2 normal heart sound present PERIPHERAL PULSES: Peripheral pulses 2+ throughout GI: COMMON NORMALS: Normal to inspection, nondistended, normoactive bowel sounds present, Soft to palpation, non-tender, No hepatosplenomegaly present and no masses AUSCULTATION: Yes normoactive bowel sounds PALPATION: Yes Soft to palpation and Yes No hepatosplenomegaly present RECTAL EXAM: deferred Extremity: COMMON NORMALS: no clubbing, cyanosis or edema and no pedal edema Neuro: COMMON NORMALS: patient oriented x3 Data 02/17/23 04:39 02/17/23 04:39 Micro: Microbiology 02/15/23 22:28 Blood Culture - Preliminary Blood NEGATIVE TO DATE 02/15/23 22:25 Blood Culture - Preliminary Blood NEGATIVE TO DATE 02/16/23 01:30 Gram Stain - Final Cerebrospinal Fluid A&P Assessment and plan (1) Diabetes mellitus with hyperglycemia, with long-term current use of insulin: (2) Essential (primary) hypertension: (3) NICKO (obstructive sleep apnea): (4) Anxiety: (5) Mixed hyperlipidemia: (6) Controlled type 2 diabetes mellitus with hyperglycemia, with long-term current use of insulin: (7) Migraine: (8) Gout: (9) General weakness: (10) Headache: (11) CVA (cerebrovascular accident): (12) Hypertension: (13) Hyperlipidemia: Plan 62-year-old female with past medical history of, diabetes hypertension gout obstructive sleep apnea CVA,TCT, migraine, presented with acute onset of, right-sided weakness, that started yesterday evening, right lower extremity weakness was so profound, initially that she was having difficulty with ambulation, she was also having some weakness in the right upper extremity, denied any bowel bladder dysfunction, she was also febrile on admission as well as at home. Initially she was admitted for the management of possible meningitis she underwent LP: Which is benign, though it has slightly elevated total protein, with normal cell count, pointing towards possible ACD but her clinical picture does not fit GBS.And ACD is not a very specific Marker for GBS. Acyclovir has been discontinued, initially she was on ceftriaxone, has been switched to meropenem, vancomycin has been continued, meropenem, can be used even in meningitis as it has good STONE LAYOUT MARKER penetration. Low clinical suspicion for MS Currently she is being managed for: Assessment: Acute onset of right-sided weakness: Unclear etiology: Currently completely resolved CT head without contrast: No acute intracranial pathology CTA head and neck: Moderate 60% stenosis at the origin of the brachiocephalic artery.Mild to moderate 50% stenosis at the origin of the left common carotid artery. She had a recent MRI brain without contrast done ( 02/13) : ?Extensive white matter changes in a subcortical and periventricular distribution. Mild progression since 2018. These findings are more than expected for typical small vessel microvascular ischemic disease. CSF fluid analysis result appreciated: CSF WBC 2, CSF total protein 63, CSF glucose 80. CSF Gram stain and culture: No organisms seen. Respiratory viral panel negative, HIV nonreactive Blood culture negative till date: Follow CSF VDRL [place] encephalitis study, oligoclonal band For now continue vancomycin and meropenem, antibiotic can be de-escalated quickly if she continues to have good clinical course. Fever: Plan as above History of diabetes: SSI, monitor fingerstick glucose History of Takotsubo cardiomyopathy: Continue Lasix, continue carvedilol History of gout: Continue allopurinol History of hypertension: History of CVA: No acute intervention at this time History of migraine: Continue Tylenol as needed -PT OT Full code SCDs, heparin SQ twice daily Attestations Medical Necessity Statement*: Patient is to be in hospital for management of fever, need for IV antibiotics. Coding Level of Care Code 03179 Diagnoses Diabetes mellitus with hyperglycemia, with long-term current use of insulin E11.65; Z79.4 Essential (primary) hypertension I10 NICKO (obstructive sleep apnea) G47.33 Anxiety F41.9 Mixed hyperlipidemia E78.2 Controlled type 2 diabetes mellitus with hyperglycemia, with long-term current use of insulin E11.65; Z79.4 Migraine G43.909 Gout M10.9 General weakness R53.1 Headache R51.9 CVA (cerebrovascular accident) I63.9 Hypertension I10 Hyperlipidemia E78.5
[2023-02-17] MEDS: allopurinol 300 mg Tablet PO ×2 (08:35→18:09)
[2023-02-17] MEDS: pantoprazole DR 40 mg Tablet PO (08:35)
[2023-02-17] MEDS: pregabalin 150 mg Capsule PO ×3 (08:36→20:33)
[2023-02-17] MEDS: TRAMadol 50 mg Tablet PO ×2 (08:36→14:53)
[2023-02-17] MEDS: atorvastatin 40 mg Tablet PO (08:37)
[2023-02-17] MEDS: doxepin 10 mg Capsule PO (08:39)
[2023-02-17] MEDS: vancomycin 1,000 MG in sodium chloride 0.9% 250 ML 250 MG IV (11:35)
[2023-02-17 11:53] LABS: Glucose Point of Care 236 mg/dL (70-110)
[2023-02-17] MEDS: insulin lispro 100 unit/1 mL SUBCUT ×3 (12:19→20:33)
[2023-02-17 17:04] LABS: Glucose Point of Care 193 mg/dL (70-110)
[2023-02-17] MEDS: potassium chloride ER 20 mEq Tablet PO (18:09)
[2023-02-17] MEDS: carvedilol 6.25 mg Tablet PO (18:09)
[2023-02-17 20:05] LABS: Glucose Point of Care 228 mg/dL (70-110)
[2023-02-18] VITALS (10 sets, daily range): BP systolic 148–186; BP diastolic 69–88; PULSE 61–90; RESP 16–17; TEMP 36.2–36.8; O2SAT 95–99
[2023-02-18] MEDS: meropenem 500 MG in sodium chloride 0.9% (plus) 50 ML 100 MG IV ×3 (00:36→16:22)
[2023-02-18] MEDS: acetaminophen 325 mg Tablet 650 MG PO ×3 (03:15→21:19)
[2023-02-18 05:28] LABS: Basophils % 0.3 %; Eosinophils # 0.1 10^3/uL (0.0-0.8); Eosinophils % 0.6 %; Hematocrit 36.4 % (37.0-47.0); Hemoglobin 11.7 g/dL (11.5-15.3); Lymphocytes # 3.9 10^3/uL (0.8-4.8); Lymphocytes % 29.3 %; Mean Corpuscular HGB Conc 32.1 g/dL (30.0-36.0); Mean Corpuscular Hemoglobin 29.2 pg (28.0-34.0); Mean Corpuscular Volume 90.8 fl (81-99); Mean Platelet Volume 12.4 fL (7.4-10.4); Monocytes # 0.8 10^3/uL (0.2-0.9); Monocytes % 5.9 %; Neutrophils # 8.46 10^3/uL (1.8-7.7); Neutrophils % 63.4 %; Nucleated Red Blood Cells % 0 %; Platelet Count 120 10^3/cmm (130-400); Red Blood Count 4.01 10^6/uL (4.1-5.3); Red Cell Distribution Width 15.2 % (12.1-15.1); White Blood Count 13.3 10^3/uL (4.0-10.0)
[2023-02-18 05:40] LABS: Alanine Aminotransferase 14 U/L (0-33); Albumin Level 3.4 g/dL (3.5-5.2); Alkaline Phosphatase 89 U/L (35-105); Anion Gap 13.8 (5-19); Aspartate Amino Transferase 15 U/L (0-32); Blood Urea Nitrogen 13 mg/dL (8-23); Calcium 8.5 mg/dL (8.5-10.5); Carbon Dioxide 22 mmol/L (22-29); Chloride 109 mmol/L (98-107); Creatinine Clr Calc Pharmacy 102.9739; Globulin 3.1 g/dL (1.3-4.6); Glomerular Filtration Rate 125.9 mL/min (90-130); Glucose 162 mg/dL (65-115); Osmolality Calculated 296 mOsm/kg (285-295); Potassium 3.8 mmol/L (3.5-5.1); Sodium 141 mmol/L (136-145); Total Bilirubin 0.2 mg/dL (0.15-1.2); Total Protein 6.5 g/dL (6.6-8.7); Vancomycin Trough 5.6 ug/mL (10-15)
[2023-02-18] MEDS: vancomycin 1,000 MG in sodium chloride 0.9% 250 ML 250 MG IV ×2 (06:10→18:17)
[2023-02-18] MEDS: heparin 5,000 unit/mL INJ 1 mL 5000 UNIT SUBCUT ×2 (06:10→19:28)
[2023-02-18] MEDS: FUROsemide 40 mg Tablet PO ×2 (06:11→18:45)
[2023-02-18 06:34] LABS: Glucose Point of Care 137 mg/dL (70-110)
[2023-02-18] MEDS: ondansetron 2 mg/ML SDV 2 mL 4 MG IVP (09:50)
[2023-02-18] MEDS: TRAMadol 50 mg Tablet PO ×2 (10:13→21:20)
[2023-02-18] MEDS: potassium chloride ER 20 mEq Tablet PO ×2 (10:13→18:45)
[2023-02-18] MEDS: pregabalin 150 mg Capsule PO ×3 (10:13→21:20)
[2023-02-18] MEDS: doxepin 10 mg Capsule PO (10:13)
[2023-02-18] MEDS: atorvastatin 40 mg Tablet PO (10:14)
[2023-02-18] MEDS: pantoprazole DR 40 mg Tablet PO (10:14)
[2023-02-18] MEDS: allopurinol 300 mg Tablet PO ×2 (10:14→18:45)
--- NOTE | 2023-02-18 10:26 | PC.CHAP ---
Pastoral Care Encounter/Spiritual Assessment Type of Contact [] Declined field representative visit [] Patient/Family/Request visit [] Outpatient visit [] Follow-up visit [] Physician referral [] Code/Alert [x] Routine visit [] Staff referral [] Actively dying [] Patient sleeping [] Family support [] [] Out of room [] Palliative care [] [] Receiving care in room [] Pre-surgical visit [] Trauma [] Long length of stay [] ICU visit [] Other: Relational/Emotional Strength [x] Patient feels connected with others/family/visitors/staff [] Distress [] Loneliness/isolation [] Abandonment Spirituality of Patient [x] Person of Nikki [] Attends Buddhism of their Nikki [x] Believes in Prayer [] Reads Bible or Yarsani materials [] There are Spiritual issues to be addressed Dust Collector Operator Interventions [x] Prayer x[] Active listening [] Non-anxious presence [x] Spiritual/emotional support [] Crisis/trauma care [] Spiritual counseling [] Bereavement support [] Provided bereavement packet [] Provided Bible/devotional materials [] Provided toy/stuffed animal, coloring book to patient or family member [] Provided Communion [] Anointing/[place] [] Salvation [x] Completed spiritual assessment [] Other: Impact on Illness or Injury [] Angry [] Fearful [] Anxious [] Often cries [] Exhaustion [] Unable to work [] Unable to attend yarsani [] Unable to walk/stand [] Unable to read [] Unable to drive [] Unable to eat/drink [] Unable to sleep [] Unable to be with family [] Patient intubated [] Other: Summary Time spent with patient 5 min
[2023-02-18 11:57] LABS: Glucose Point of Care 145 mg/dL (70-110)
[2023-02-18] MEDS: insulin lispro 100 unit/1 mL SUBCUT ×3 (13:14→21:23)
--- NOTE | 2023-02-18 13:57 | PC.OT ---
OT TREATMENT ATTEMPTED THIS A.M. PATIENT REPORTS THAT SHE MAY D/C TODAY. ALSO REPORTS A CASTANON SINCE 0300 THIS MORNING AND IS JUST NOW STARTING TO FEEL BETTER. ASKS TO HOLD AND AGREEABLE TO THERAPIST ATTEMPT IN P.M.
--- NOTE | 2023-02-18 14:51 | PC.OT ---
OT TREATMENT ATTEMPTED IN A.M. AND P.M. PATIENT CURRENTLY RESTING AND REQUESTS HOLD UNTIL TOMORROW.
[2023-02-18 16:59] LABS: Glucose Point of Care 167 mg/dL (70-110)
[2023-02-18 18:45] LABS: Rapid Strep A Test Negative (Negative)
[2023-02-18] MEDS: carvedilol 6.25 mg Tablet PO (18:46)
[2023-02-18 20:18] LABS: Glucose Point of Care 142 mg/dL (70-110)
--- NOTE | 2023-02-18 23:00 | P.PN_ITS ---
Subjective Subjective: patient had a headache this morning similar to her previous migraine attacks. States this was different from the one on admission. Overall she feels much improved. She has no residual weakness, has been afebrile since 02/15. Leukocytosis down to 13K. Medications: Medication Review Details: Generic Name Dose Route Start Last Admin Trade Name Freq PRN Reason Stop Dose Admin Allopurinol 300 mg 02/16/23 18:00 02/16/23 18:06 Allopurinol 300 Mg Tablet PO 300 mg BID SATNAM Administration Carvedilol 6.25 mg 02/16/23 18:00 02/16/23 18:06 Carvedilol 6.25 Mg Tablet PO 6.25 mg QPM SATNAM Administration Heparin Sodium (Po rcine) 5,000 unit 02/16/23 07:00 02/17/23 06:32 Heparin 5,000 Un it/Ml Inj 1 Ml SUBCUT 5,000 unit Q12H SATNAM Administration Sodium Chloride 1,000 mls @ 75 ml s/hr 02/16/23 07:00 02/17/23 00:13 Sodium Chloride 0.9% IV 75 mls/hr .[id number] SATNAM Administration Vancomycin HCl 1,0 00 mg/ 250 mls @ 250 mls /hr 02/16/23 18:00 02/16/23 19:42 Sodium Chloride IV Infused Q18H SATNAM Infusion Protocol Meropenem 500 mg/ Sodium 50 mls @ 100 mls/ hr 02/16/23 08:30 02/17/23 00:52 Chloride IV Infused Q8H SATNAM Infusion Protocol Insulin Human Lisp ro 0 unit 02/16/23 08:00 02/16/23 21:02 Insulin Lispro 1 00 Unit/1 Ml SUBCUT 6 unit WM&BEDTIME SATNAM Administration Protocol Pantoprazole Sodiu m 40 mg 02/16/23 09:00 02/16/23 10:[address] 40 Mg Tablet PO 40 mg DAILY SATNAM Administration Pregabalin 150 mg 02/16/23 21:00 02/16/23 21:03 Pregabalin 150 M g Capsule PO 150 mg TID SATNAM Administration Tramadol HCl 50 mg 02/16/23 17:18 02/16/23 18:05 Tramadol 50 Mg T ablet PO 50 mg TID PRN Administration Pain Vitals/I&O/Wt Last Vital Signs Temp 97.2 F L 02/18/23 20:00 Pulse 69 02/18/23 22:57 Resp 17 02/18/23 20:00 BP 166/88 02/18/23 20:00 Pulse Ox 98 02/18/23 20:00 O2 Del Method 02/18/23 20:00 02/18/23 02/18/23 02/19/23 14:59 22:59 06:59 Intake Total 540 / 540 780 / 1320 Output Total 2200 / 2200 700 / 2900 Balance -1660 / -1660 80 / -1580 Physical Exam Narrative: General: No acute distress, AO x3 HEENT: PERRLA, pupils bilaterally equal and reactive, pallors not present Chest: Normal vesicular breath sounds, no added sounds, equal good air entry bilaterally CVS: S1-S2 regular, no murmurs, no tachycardia, no gallops, no rubs Abdomen: Soft, nontender, no organomegaly, bowel sounds present Neuro: No focal deficits, no facial deformity, AO x3, power 5/5 in all limbs Data 02/18/23 05:06 02/18/23 05:06 Micro: Microbiology 02/17/23 21:30 MRSA Culture - Final Nose 02/16/23 01:30 Gram Stain - Final Cerebrospinal Fluid CSF Culture - Preliminary A&P Assessment and plan (1) Diabetes mellitus with hyperglycemia, with long-term current use of insulin: (2) Essential (primary) hypertension: (3) NICKO (obstructive sleep apnea): (4) Anxiety: (5) Mixed hyperlipidemia: (6) Controlled type 2 diabetes mellitus with hyperglycemia, with long-term current use of insulin: (7) Migraine: (8) Gout: (9) General weakness: (10) Headache: (11) CVA (cerebrovascular accident): (12) Hypertension: (13) Hyperlipidemia: Plan 62-year-old female with past medical history of, diabetes hypertension gout obstructive sleep apnea CVA,TCT, migraine, presented with acute onset of, right- sided weakness, which is now completeley resolved. Also febrile on admission with multiple sick grandchildren at home. reports sore throat on day of admission. Underwent LP with WBC 2, slightly elevated total protein, with normal glucose. Low clinical suspicion for bacterial meningitis given this LP. symptoms significantly improved currently . No extremity weakness. Acute onset of right-sided weakness: Unclear etiology: Currently completely resolved CT head without contrast: No acute intracranial pathology CTA head and neck: Moderate 60% stenosis at the origin of the brachiocephalic artery.Mild to moderate 50% stenosis at the origin of the left common carotid artery. She had a recent MRI brain without contrast done ( 02/13) : ?Extensive white m atter changes in a subcortical and periventricular distribution. Mild progression since 2018. These findings are more than expected for typical small vessel microvascular ischemic disease. has h/o past stroke ? cardioembolic CSF fluid analysis result appreciated: CSF WBC 2, CSF total protein 63, CSF glucose 80. CSF Gram stain and culture: No organisms seen. Respiratory viral panel negative, HIV nonreactive Blood culture negative till date: D/c vancomycin and meropenem, change to ceftriaxone 1g iv daily CXR without consolidation Withr eported multiple sick onatcts by way of pre school aged children and also with h/o sore throat. suspect patient's etiology may be viral in nature. Will ch mckayla additionally for grp A strep SSI, monitor fingerstick glucose History of Takotsubo cardiomyopathy: Continue Lasix, continue carvedilol History of gout: Continue allopurinol History of hypertension: History of CVA: No acute intervention at this time History of migraine: Continue Tylenol as needed -PT OT Full code SCDs, heparin SQ twice daily Attestations Medical Necessity Statement*: de escalate abx therapy and monitor for any worsening Coding Level of Care Code Acute Code for Chg Fwd Diagnoses Diabetes mellitus with hyperglycemia, with long-term current use of insulin E11.65; Z79.4 Essential (primary) hypertension I10 NICKO (obstructive sleep apnea) G47.33 Anxiety F41.9 Mixed hyperlipidemia E78.2 Controlled type 2 diabetes mellitus with hyperglycemia, with long-term current use of insulin E11.65; Z79.4 Migraine G43.909 Gout M10.9 General weakness R53.1 Headache R51.9 CVA (cerebrovascular accident) I63.9 Hypertension I10 Hyperlipidemia E78.5
[2023-02-19] MEDS: ketorolac 30 mg/mL INJ 15 MG IVP
[2023-02-19 03:59] VITALS: BP 145/62; PULSE 63; RESP 17; TEMP 36.6; O2SAT 92
[2023-02-19] MEDS: cefTRIAXone 1,000 MG in sodium chloride 0.9% (plus) 50 ML 100 MG IV (04:48)
[2023-02-19 05:23] LABS: Basophils % 0.4 %; Eosinophils # 0.2 10^3/uL (0.0-0.8); Eosinophils % 2.1 %; Hematocrit 40.7 % (37.0-47.0); Hemoglobin 13.1 g/dL (11.5-15.3); Lymphocytes # 4.1 10^3/uL (0.8-4.8); Lymphocytes % 49.6 %; Mean Corpuscular HGB Conc 32.2 g/dL (30.0-36.0); Mean Corpuscular Hemoglobin 29.1 pg (28.0-34.0); Mean Corpuscular Volume 90.4 fl (81-99); Mean Platelet Volume 12.4 fL (7.4-10.4); Monocytes # 0.6 10^3/uL (0.2-0.9); Monocytes % 7.1 %; Neutrophils # 3.32 10^3/uL (1.8-7.7); Neutrophils % 40.1 %; Nucleated Red Blood Cells % 0 %; Platelet Count 143 10^3/cmm (130-400); Red Cell Distribution Width 15.1 % (12.1-15.1); White Blood Count 8.3 10^3/uL (4.0-10.0)
[2023-02-19 05:40] LABS: Alanine Aminotransferase 25 U/L (0-33); Albumin Level 3.4 g/dL (3.5-5.2); Alkaline Phosphatase 84 U/L (35-105); Anion Gap 16.9 (5-19); Aspartate Amino Transferase 33 U/L (0-32); Blood Urea Nitrogen 13 mg/dL (8-23); Calcium 8.6 mg/dL (8.5-10.5); Carbon Dioxide 25 mmol/L (22-29); Chloride 105 mmol/L (98-107); Globulin 3.6 g/dL (1.3-4.6); Glomerular Filtration Rate 85.4 mL/min (90-130); Glucose 152 mg/dL (65-115); Osmolality Calculated 299 mOsm/kg (285-295); Potassium 3.9 mmol/L (3.5-5.1); Sodium 143 mmol/L (136-145); Total Bilirubin 0.3 mg/dL (0.15-1.2)
[2023-02-19 05:55] VITALS: PULSE 58
[2023-02-19] MEDS: heparin 5,000 unit/mL INJ 1 mL 5000 UNIT SUBCUT (06:09)
[2023-02-19 06:59] LABS: Glucose Point of Care 152 mg/dL (70-110)
[2023-02-19 08:00] VITALS: BP 132/81; PULSE 65; RESP 15; TEMP 36.7; O2SAT 94
[2023-02-19 08:11] VITALS: PULSE 60; RESP 18; O2SAT 96
[2023-02-19 08:12] VITALS: O2SAT 96
[2023-02-19] MEDS: insulin lispro 100 unit/1 mL SUBCUT ×2 (09:40→12:47)
[2023-02-19] MEDS: TRAMadol 50 mg Tablet PO (09:40)
[2023-02-19] MEDS: pantoprazole DR 40 mg Tablet PO (09:41)
[2023-02-19] MEDS: pregabalin 150 mg Capsule PO (09:41)
[2023-02-19] MEDS: atorvastatin 40 mg Tablet PO (09:41)
[2023-02-19] MEDS: FUROsemide 40 mg Tablet PO (09:41)
[2023-02-19] MEDS: potassium chloride ER 20 mEq Tablet PO (09:41)
[2023-02-19] MEDS: allopurinol 300 mg Tablet PO (09:41)
[2023-02-19] MEDS: doxepin 10 mg Capsule PO (09:41)
[2023-02-19 11:14] LABS: Glucose Point of Care 159 mg/dL (70-110)
--- NOTE | 2023-02-19 11:24 | PC.SOCIAL ---
IMM Update pg 2 of IMM updated and reviewed w/ patient. Copy provided and copy dated, initialed and placed in chart.
[2023-02-19 12:00] VITALS: BP 192/96; PULSE 66; RESP 17; TEMP 36.7; O2SAT 97
--- NOTE | 2023-02-19 16:19 | P.DS_ITS ---
Discharge Providers Date of Admission: 02/16/23 07:01 Date of Discharge: February 19, 2023 Attending Provider at Admission: Janis Israel MD Attending Provider at Discharge: Chantal Soto MD Primary Care Provider: KAT Jennings Diagnoses at Discharge Discharge Diagnosis (1) Diabetes mellitus with hyperglycemia, with long-term current use of insulin: Status: Chronic (2) Essential (primary) hypertension: Status: Chronic (3) NICKO (obstructive sleep apnea): Status: Chronic (4) Anxiety: Status: Chronic (5) Mixed hyperlipidemia: Status: Chronic (6) Controlled type 2 diabetes mellitus with hyperglycemia, with long-term cur rent use of insulin: Status: Chronic (7) Migraine: Status: Acute (8) Gout: Status: Acute (9) General weakness: Status: Acute (10) Headache: Status: Acute (11) CVA (cerebrovascular accident): Status: Acute (12) Hypertension: Status: Acute (13) Hyperlipidemia: Status: Acute Reason for Visit Reason for Visit: sob, weak,eyes droopy Hospital Course Hospital Course 62-year-old female past medical history of anxiety, cardiomyopathy, gout, type 2 diabetes mellitus currently on insulin, hypertension, hyperlipidemia, obstruc tive sleep apnea, history of chronic migraines, lumbar radiculopathy presented to the hospital on 02/16 for generalized weakness, fever 103 Fahrenheit, headache that started the day prior to presenting. She was having chills at home. She denied any cough vomiting diarrhea abdominal pain chest pain or shortness of breath. She had multiple sick contacts at home as she was taking care of her preschool-aged grandchildren aged 2.5 who are sick with respiratory symptoms. Evaluation was notable for WBC of 17.3, lactate of 1.9, CRP of 134. Patient had reported a mild sore throat however it appears this was only reported during the course of admission. There was concern for meningitis initially upon presentation therefore patient underwent an LP. Overall LP was not concerning for bacterial meningitis. Slightly elevated protein was noted at 63, however WBC only 2, normal CSF glucose at 80. Gram stain and culture negative. Patient's overall weakness improved significantly over the next day. She continues to have intermittent headaches, however now relates that these are similar to her known chronic migraines. They are relieved with Tylenol and rest. She was started on empiric antibiotic treatment with meropenem vancomycin and acyclovir and dexamethasone which were narrowed down to ceftriaxone a day prior to discharge. Patient's fever have remained completely resolved in February 15, 2023. Chest x-ray did not show any gross consolidation. UA was unremarkable. Overall bacterial source evaluation remained unrevealing. Suspect that patient's symptoms may have been related to acute viral illness given history of multiple sick preschool children at home. Group A strep was checked given reported odynophagia, sore throat and absence of cough, however this was negative. Of note the group A strep screen had been obtained after being on over 48 hours of meropenem and vancomycin. Since possibility could not be excluded, patient is being discharged with remaining 3 days of Augmentin. Patient has been having a vasculitis work-up as an outpatient with her primary care provider which had showed [employer] antibody positive but otherwise overall negative. MRI of the head performed recently had shown chronic microvascular white matter changes, slightly progressed since 2018. Patient has a past medical history of stroke in 2018. Currently not on any anticoagulation and was also taken off Plavix by cardiology due to increased bruising. Recommended to keep follow-up with outpatient neurologist and primary care provider. Physical Exam Narrative: General: No acute distress, AO x3 HEENT: PERRLA, pupils bilaterally equal and reactive, pallors not present Chest: Normal vesicular breath sounds, no added sounds, equal good air entry bilaterally CVS: S1-S2 regular, no murmurs, no tachycardia, no gallops, no rubs Abdomen: Soft, nontender, no organomegaly, bowel sounds present Neuro: No focal deficits, no facial deformity, AO x3, power 5/5 in all limbs Discharge Data Studies Completed and Pending Completed Studies During Hospitalization Category Date Time Status CT head wo con* [id number] Stat Cat Scan 02/15/23 22:00 Completed CTA head neck [CT angio headneck* [id number]] Stat Cat Scan 02/16/23 03:33 Completed XR chest 1V portable [id number] Stat Exams 02/15/23 22:00 Completed Pending at discharge Category Date Time Status VANIA Screen w/ Reflex Stat Lab 02/16/23 02:59 Received Blood Culture Stat Lab 02/15/23 22:28 Results Herpes Simplex Virus DNA Routine Lab 02/16/23 07:30 Received Oligoclonal Bands IGG, CSF Stat Lab 04/01/23 07:46 Received [place] Enceph.Virus IFA CSF Stat Lab 02/16/23 07:30 Received Streptococcus Culture Group A Stat Lab 02/18/23 17:49 Results VDRL on CSF Stat Lab 02/16/23 07:30 Received Radiology Impressions Chest X-Ray 02/15/23 22:00 IMPRESSION: 1. No acute cardiopulmonary process. 2. Incidental/nonacute findings are listed in the report. Head CT 02/15/23 22:00 IMPRESSION: 1. No acute abnormality of the brain. 2. Stable mild chronic white matter microangiopathic change. 3. Incidental/nonacute findings are listed in the report. Head/Neck CTA 02/16/23 03:33 IMPRESSION: No large vessel stenosis or occlusion. IMPRESSION: 1. Normal right extracranial internal carotid artery by NASCET criteria. 2. Atherosclerotic disease at the origin of the left extracranial internal carotid artery with mild stenosis by NASCET criteria. 3. Patent bilateral vertebral arteries. 4. 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 5. Mild to moderate 50% stenosis at the origin of the left common carotid artery. THIS REPORT CONTAINS FINDINGS THAT MAY BE CRITICAL TO PATIENT CARE. The findings were verbally communicated via telephone conference with RENEA BORGES at 6:45 AM CDT on 02/16/2023. The findings were acknowledged and understood. REFERENCES: NASCET CRITERIA. The degree of stenosis in the cervical segment of the internal carotid artery is based on NASCET criteria. Normal is no stenosis. Mild is less than 50% stenosis. Moderate is 50-69% stenosis. Severe is 70% to 99% stenosis. Total occlusion is no detectable patent lumen. Laboratory Results WBC 8.3 10^3/uL (4.0-10.0) 02/19/23 04:50 RBC 4.50 10^6/uL (4.1-5.3) 02/19/23 04:50 Hgb 13.1 g/dL (11.5-15.3) 02/19/23 04:50 Hct 40.7 % (37.0-47.0) 02/19/23 04:50 MCV 90.4 fl (81-99) 02/19/23 04:50 MCH 29.1 pg (28.0-34.0) 02/19/23 04:50 MCHC 32.2 g/dL (30.0-36.0) 02/19/23 04:50 RDW 15.1 % (12.1-15.1) 02/19/23 04:50 Plt Count 143 10^3/cmm (130-400) 02/19/23 04:50 MPV 12.4 fL (7.4-10.4) H 02/19/23 04:50 Neut % (Auto) 40.1 % 02/19/23 04:50 Lymph % (Auto) 49.6 % 02/19/23 04:50 [place] % (Auto) 7.1 % 02/19/23 04:50 Eos % (Auto) 2.1 % 02/19/23 04:50 Baso % (Auto) 0.4 % 02/19/23 04:50 Neut # (Auto) 3.32 10^3/uL (1.8-7.7) 02/19/23 04:50 Lymph # (Auto) 4.1 10^3/uL (0.8-4.8) 02/19/23 04:50 [place] # (Auto) 0.6 10^3/uL (0.2-0.9) 02/19/23 04:50 Eos # (Auto) 0.2 10^3/uL (0.0-0.8) 02/19/23 04:50 Baso # (Auto) 0.0 10^3/uL (0.0-0.1) 02/19/23 04:50 Nucleated RBC % (auto) 0 % 02/19/23 04:50 Nucleated RBCs # 0.0 /100WBC 02/19/23 04:50 Sodium 143 mmol/L (136-145) 02/19/23 04:50 Potassium 3.9 mmol/L (3.5-5.1) 02/19/23 04:50 Chloride 105 mmol/L (98-107) 02/19/23 04:50 Carbon Dioxide 25 mmol/L (22-29) 02/19/23 04:50 Anion Gap 16.9 (5-19) 02/19/23 04:50 BUN 13 mg/dL (8-23) 02/19/23 04:50 Creatinine 0.7 mg/dL (0.5-0.9) 02/19/23 04:50 GFR Calculation 85.4 mL/min (90-130) L 02/19/23 04:50 Glucose 152 mg/dL (65-115) H 02/19/23 04:50 POC Glucose 159 mg/dL (70-110) H 02/19/23 10:56 Estimat Average Glucose 183 02/16/23 07:46 Hemoglobin A1c 8.0 % (4.0-6.0) H 02/16/23 07:46 Calculated Osmolality 299 mOsm/kg (285-295) H 02/19/23 04:50 Lactate 1.9 mmol/L (0.5-2.2) 02/15/23 21:48 Calcium 8.6 mg/dL (8.5-10.5) 02/19/23 04:50 Phosphorus 2.4 mg/dL (2.5-4.5) L 02/17/23 04:39 Magnesium 2.3 mg/dL (1.7-2.3) 02/17/23 04:39 Total Bilirubin 0.3 mg/dL (0.15-1.2) 02/19/23 04:50 AST 33 U/L (0-32) H 02/19/23 04:50 ALT 25 U/L (0-33) 02/19/23 04:50 Alkaline Phosphatase 84 U/L (35-105) 02/19/23 04:50 Creatine Kinase 112 U/L (26-192) 02/15/23 21:48 C-Reactive Protein 134.8 mg/L (0.0-4.9) H 02/15/23 21:48 Total Protein 7.0 g/dL (6.6-8.7) 02/19/23 04:50 Albumin 3.4 g/dL (3.5-5.2) L 02/19/23 04:50 Globulin 3.6 g/dL (1.3-4.6) 02/19/23 04:50 Procalcitonin 0.27 ng/mL (0-0.5) 02/16/23 07:46 TSH 0.62 uIU/mL (0.27-4.20) 02/16/23 07:46 Urine Color Yellow (Yellow) 02/15/23 23:40 Urine Appearance Clear (CLEAR) 02/15/23 23:40 Urine pH 8 (5-7) H 02/15/23 23:40 Ur Specific [place] 1.005 (1.005-1.030) 02/15/23 23:40 Urine Protein Neg (Negative) 02/15/23 23:40 Urine Glucose (UA) 4+ (Normal) H 02/15/23 23:40 Urine Ketones Negative (Negative) 02/15/23 23:40 Urine Blood Neg (Negative) 02/15/23 23:40 Urine Nitrate Negative (Negative) 02/15/23 23:40 Urine Bilirubin Neg (Negative) 02/15/23 23:40 Prot Sulfosalicylic Acd Negative (Negative) 02/15/23 23:40 Urine Urobilinogen Norm mg/dL (Negative) 02/15/23 23:40 Ur Leukocyte Esterase Negative (Negative) 02/15/23 23:40 CSF Appearance Clear (CLEAR) 02/16/23 01:30 CSF Color Colorless (COLORLESS) 02/16/23 01:30 CSF WBC 2 /uL (0-5) 02/16/23 01:30 CSF RBC 0 10^3/uL (0-0) 02/16/23 01:30 CSF Mononuclear # Auto 0.001 10^3/uL (50-90) L 02/16/23 01:30 CSF Mononuclear WBCs % 50 % (50-90) 02/16/23 01:30 CSF Polynuclear WBCs # 0.001 10^3/uL (0-10) 02/16/23 01:30 CSF Polynuclear WBCs % 50 % (0-10) H 02/16/23 01:30 CSF Glucose 80 mg/dL (40-70) H 02/16/23 01:30 CSF Total Protein 63 mg/dL (15-45) H 02/16/23 01:30 Nasal Influ A H1 2008 PCR Not detected (NOT DETECT) 02/16/23 01:50 Vancomycin Trough 5.6 ug/mL (10-15) L 02/18/23 05:06 Adenovirus (PCR) Not detected (NOT DETECT) 02/16/23 01:50 C. pneumoniae DNA (PCR) Not detected (NOT DETECT) 02/16/23 01:50 Coronavirus 229E (PCR) Not detected (NOT DETECT) 02/16/23 01:50 HIV 1&2 Ab & HIV 1 Ag Non-reactive (Non-Reactiv) 02/16/23 07:46 HIV 1&2 Antibody Non-reactive (Non-Reactiv) 02/16/23 07:46 Human Metapneumovir PCR Not detected (NOT DETECT) 02/16/23 01:50 Influenza A (H1) PCR Not detected (NOT DETECT) 02/16/23 01:50 Influenza A (H3) PCR Not detected (NOT DETECT) 02/16/23 01:50 Influenza Type A (PCR) Not detected (NOT DETECT) 02/16/23 01:50 Influenza Type B (PCR) Not detected (NOT DETECT) 02/16/23 01:50 M. pneumoniae (PCR) Not detected (NOT DETECT) 02/16/23 01:50 Parainfluenza 1 (PCR) Not detected (NOT DETECT) 02/16/23 01:50 Parainfluenza 2 (PCR) Not detected (NOT DETECT) 02/16/23 01:50 Parainfluenza 3 (PCR) Not detected (NOT DETECT) 02/16/23 01:50 Parainfluenza 4 (PCR) Not detected (NOT DETECT) 02/16/23 01:50 RSV Type A (PCR) Not detected (NOT DETECT) 02/16/23 01:50 RSV Type B (PCR) Not detected (NOT DETECT) 02/16/23 01:50 Entero/Rhino (PCR) Not detected (NOT DETECT) 02/16/23 01:50 SARS-CoV-2 (PCR) Not detected (NOT DETECT) 02/16/23 01:50 SARS-CoV-2 Ag (Rapid) negative (Negative) 02/15/23 22:43 Group A Strep Rapid Negative (Negative) 02/18/23 17:49 Misc Test Reference Cancelled 02/16/23 07:46 Vitals Last Vital Signs Temp 98.0 F 02/19/23 12:00 Pulse 66 02/19/23 12:00 Resp 17 02/19/23 12:00 BP 192/96 02/19/23 12:00 Pulse Ox 97 02/19/23 12:00 O2 Del Method 02/19/23 12:00 Discharge Plan Discharge Patient Disposition: Home Condition: Stable Prescriptions: New amoxicillin-pot clavulanate 875-125 mg tablet 1 tab PO BID 3 Days Qty: 6 0RF Continued (DME) lancets [Fingerstix Lancets] Misc See Rx Instructions .ROUTE .MEDSUPPLY Qty: 200 5RF Rx Instructions: 4 times daily (DME) nebulizer accessories Kit See Rx Instructions .ROUTE .MEDSUPPLY Qty: 1 0RF Rx Instructions: daily oral tramadol 50 mg tablet 50 mg PO TID PRN (Reason: Pain) turmeric root extract 500 mg capsule 1,000 mg PO TID Rx Instructions: dose change magnesium hydroxide 400 mg (170 mg magnesium) tablet,chewable 400 mg PO DAILY pregabalin [Lyrica] 150 mg capsule 150 mg PO TID (DME) blood-glucose meter [Loop Trolleyuch Ultra2 Meter] Kit See Rx Instructions .Route Qty: 1 0RF Rx Instructions: use 3-4 times daily (DME) lancets [OneTouch Delica Plus Lancet] 33 gauge misc See Rx Instructions .Route Qty: 100 5RF Rx Instructions: use 3-4 times day duloxetine 30 mg capsule,delayed release(DR/EC) 90 mg PO DAILY Qty: 270 1RF Jardiance 10 mg tablet 10 mg PO QAM Qty: 90 1RF estradiol [Estrace] 0.01 % (0.1 mg/gram) cream 2 g VAGINAL .2 times week 30 Days Qty: 126 1RF furosemide 40 mg tablet 40 mg PO BID Qty: 180 1RF (DME) FreeStyle Elena 2 Sensor Kit See Rx Instructions .ROUTE .MEDSUPPLY Qty: 6 1RF Rx Instructions: change every 14 days carvedilol 6.25 mg tablet 6.25 mg PO QPM doxepin 10 mg capsule 10 mg PO DAILY potassium chloride 20 mEq tablet extended release 20 meq PO BID fluticasone propionate [Flonase Allergy Relief] 50 mcg/actuation spray,suspension 1 spray intranasal DAILY PRN (Reason: allergy symptoms) Qty: 16 0RF Rx Instructions: administer into each nostril celecoxib 200 mg capsule 200 mg PO DAILY allopurinol 300 mg tablet 300 mg PO BID Qty: 180 1RF atorvastatin 40 mg tablet 40 mg PO DAILY Qty: 90 1RF Trulicity 4.5 mg/0.5 mL pen injector 4.5 mg SUBCUT .weekly Qty: 6 0RF Rx Instructions: dose increase insulin degludec [Tresiba FlexTouch U-200] 200 unit/mL (3 mL) insulin pen 60 unit SUBCUT BID Qty: 108 0RF (DME) CPAP Qty: 1 0RF Rx Instructions: get items and send codes for signature (DME) FreeStyle Elena 2 [place] Misc See Rx Instructions .ROUTE .MEDSUPPLY Qty: 1 0RF Rx Instructions: As directed (DME) Portable Nebulizer System Device See Rx Instructions .ROUTE .MEDSUPPLY Qty: 1 0RF Rx Instructions: daily (DME) OneTouch Ultra Test Strip See Rx Instructions .Route Qty: 200 5RF Rx Instructions: use 3-4 time day insulin aspart U-100 [Novolog FlexPen U-100 Insulin] 100 unit/mL (3 mL) insulin pen See Rx Instructions SUBCUT TID Qty: 15 0RF Rx Instructions: 110-115=5U,116-120=7U,121-140=9U,141-160=11U,161-190=13 U,191-210=15U,211-230=17U,231-250=19U,251-270=21U,271-290=23U,291-310=25U Discharge Orders: Discharge Order (Routine); Ordered 02/19/23 Ordered By: Chantal Soto Referrals: Nette Morocho FNP-C [Primary Care Provider] - 02/26/23 3:20 pm Discharge Diet: Usual diet Discharge Activity: Resume usual activity Patient Instructions: Amoxicillin/Clavulanate Potassium (By mouth), Weakness (GEN), Opioid Safety Discharge Attestations Time Spent in Discharge Care*: greater than 30 min Quality Metrics Clinical Quality Measures [ No reported AMI, CVA or VTE this stay] Coding Level of Care Code Acute Code for Chg Fwd Diagnoses Diabetes mellitus with hyperglycemia, with long-term current use of insulin E11.65; Z79.4 Essential (primary) hypertension I10 NICKO (obstructive sleep apnea) G47.33 Anxiety F41.9 Mixed hyperlipidemia E78.2 Controlled type 2 diabetes mellitus with hyperglycemia, with long-term current use of insulin E11.65; Z79.4 Migraine G43.909 Gout M10.9 General weakness R53.1 Headache R51.9 CVA (cerebrovascular accident) I63.9 Hypertension I10 Hyperlipidemia E78.5
[2023-02-20 04:49] LABS: Anti-Nuclear Antibody Screen NEGATIVE (NEGATIVE)
[2023-02-21 17:29] LABS: St. Louis Enceph.Virus IGG CSF <1:1; St. Louis Enceph.Virus IGM CSF <1:1
[2023-02-21 22:41] LABS: VDRL on CSF NON-REACTIVE
[2023-02-22 00:15] LABS: HSV 1 DNA NOT DETECTED; HSV 2 DNA NOT DETECTED; HSV Source CEREBROSPINAL FLUID
== END 2023-02-19 13:06 | disposition home or self-care (01) | DRG 866 ==
LOC: ER 21:36 → MEDSURG 02-16 08:42
PROVIDERS: Internal Medicine; Admitting Provider Internal Medicine; Emergency Provider Emergency Medicine; PCP Nurse Practitioner; Visit Provider Student in an Organized Health Care Education/Training Program
DX: B34.9 Viral infection, unspecified (principal); G81.91 Hemiplegia, unspecified affecting right dominant side; R47.01 Aphasia; I51.81 Takotsubo syndrome; G43.709 Chronic migraine without aura, not intractable, without status migrainosus; M1A.9XX0 Chronic gout, unspecified, without tophus (tophi); E11.65 Type 2 diabetes mellitus with hyperglycemia; J02.0 Streptococcal pharyngitis; B95.0 Streptococcus, group A, as the cause of diseases classified elsewhere; R90.82 White matter disease, unspecified; I10 Essential (primary) hypertension; F41.9 Anxiety disorder, unspecified; G47.33 Obstructive sleep apnea (adult) (pediatric); E78.2 Mixed hyperlipidemia; Z79.4 Long term (current) use of insulin; Z86.73 Personal history of transient ischemic attack (TIA), and cerebral infarction without residual deficits; Z87.891 Personal history of nicotine dependence
CPT/HCPCS: 36415; 36416; 62270; 70450; 70496; 70498; 70551; 71045; 80053; 80202; 80503; 81003; 82550; 82945; 82962; 83036; 83605; 83735; 83916; 84100; 84145; 84157; 84443; 85025; 86038; 86140; 86592; 86653; 87040; 87070; 87075; 87081; 87205; 87426; 87486; 87530; 87581; 87633; 87641; 87806; 87880; 89050; 93005; 94664; 96365; 96367; 96372; 96375; 96376; 97110; 97161; 97165; 99285; J0133; J0696; J1100; J1110; J1644; J1815; J1885; J2185; J2405; J3010; J3370; J7030; J7050; Q9967

== ENCOUNTER → 2023-04-18 09:33 | Outpatient (BNVA) | payer MEDICARE, OTHER, SELFPAY | PROVIDERS: PCP Nurse Practitioner; Visit Provider Nurse Practitioner | DX: I10 Essential (primary) hypertension (principal); E11.65 Type 2 diabetes mellitus with hyperglycemia; Z79.4 Long term (current) use of insulin; M10.9 Gout, unspecified | CPT/HCPCS: 80053; 80061; 81000; 83036; 84550 ==

== ENCOUNTER → 2023-05-08 11:18 | Outpatient (BNVA) | payer MEDICARE, OTHER, SELFPAY | PROVIDERS: PCP Nurse Practitioner; Visit Provider Internal Medicine Rheumatology | DX: Z11.59 Encounter for screening for other viral diseases (principal); Z79.899 Other long term (current) drug therapy; M15.9 Polyosteoarthritis, unspecified; M06.4 Inflammatory polyarthropathy; R76.0 Raised antibody titer; R93.0 Abnormal findings on diagnostic imaging of skull and head, not elsewhere classified; R83.8 Other abnormal findings in cerebrospinal fluid; E11.8 Type 2 diabetes mellitus with unspecified complications; Z79.4 Long term (current) use of insulin | CPT/HCPCS: 36415; 73030; 73130; 73562; 82306; 85651; 86036; 86140; 86200; 86480; 86704; 86803; 87340; 99205 ==

== ENCOUNTER → 2023-08-08 08:51 | Outpatient (BNVA) | payer MEDICARE, OTHER, SELFPAY | PROVIDERS: PCP Nurse Practitioner; Visit Provider Nurse Practitioner | DX: E11.65 Type 2 diabetes mellitus with hyperglycemia (principal); I10 Essential (primary) hypertension; Z79.4 Long term (current) use of insulin | CPT/HCPCS: 80053; 80061; 81000; 83036; 85025 ==

== ENCOUNTER → 2023-08-30 07:40 | Outpatient (BNVA) | payer MEDICARE, OTHER, SELFPAY | PROVIDERS: PCP Nurse Practitioner; Referring Provider Internal Medicine Rheumatology; Visit Provider Specialist | DX: G37.9 Demyelinating disease of central nervous system, unspecified (principal); R90.82 White matter disease, unspecified; G31.84 Mild cognitive impairment of uncertain or unknown etiology | CPT/HCPCS: 99204 ==

== ENCOUNTER → 2023-09-16 11:28 | Outpatient (BNVA) | payer MEDICARE, OTHER, SELFPAY | PROVIDERS: PCP Nurse Practitioner; Visit Provider Nurse Practitioner | DX: E11.65 Type 2 diabetes mellitus with hyperglycemia (principal); Z79.4 Long term (current) use of insulin | CPT/HCPCS: 81000 ==

== ENCOUNTER 2023-10-07 16:13 | Emergency (ER) | payer MEDICARE, OTHER, SELFPAY ==
[2023-10-07 16:19] VITALS: BP 112/69; PULSE 72; RESP 15; TEMP 36.5; O2SAT 99; BMI 28.3
[2023-10-07 17:37] LABS: Basophils # 0.1 10^3/uL (0.0-0.1); Basophils % 0.6 %; Eosinophils # 0.4 10^3/uL (0.0-0.8); Eosinophils % 3.6 %; Hematocrit 46.4 % (36-47); Lymphocytes # 4.4 10^3/uL (0.8-4.8); Lymphocytes % 43.3 %; Mean Corpuscular HGB Conc 31.9 g/dL (30-55); Mean Corpuscular Hemoglobin 29.5 pg (27-33); Mean Corpuscular Volume 92.4 fl (85-98); Mean Platelet Volume 11.8 fL (7.4-10.4); Monocytes # 0.6 10^3/uL (0.2-0.9); Monocytes % 6.2 %; Neutrophils # 4.68 10^3/uL (1.8-7.7); Nucleated Red Blood Cells % 0 %; Platelet Count 157 10^3/cmm (157-399); Red Blood Count 5.02 10^6/uL (3.85-5.65); Red Cell Distribution Width 15.3 % (12.1-15.1); White Blood Count 10.18 10^3/uL (3.29-11.43)
[2023-10-07 17:54] LABS: Alanine Aminotransferase 25 U/L (0-33); Albumin Level 4.4 g/dL (3.5-5.2); Alkaline Phosphatase 93 U/L (35-105); Aspartate Amino Transferase 30 U/L (0-32); Blood Urea Nitrogen 11 mg/dL (8-23); Calcium 9.6 mg/dL (8.5-10.5); Carbon Dioxide 30 mmol/L (22-29); Chloride 100 mmol/L (98-107); Globulin 3.3 g/dL (1.3-4.6); Glomerular Filtration Rate 85.4 mL/min (90-130); Glucose 131 mg/dL (65-115); Osmolality Calculated 293 mOsm/kg (285-295); Sodium 141 mmol/L (136-145); Total Bilirubin 0.3 mg/dL (0.15-1.2); Total Protein 7.7 g/dL (6.6-8.7)
[2023-10-07 17:58] LABS: Anion Gap 14.9 (5-19); Potassium 3.9 mmol/L (3.5-5.1)
--- NOTE | 2023-10-07 18:03 | ED_ITS ---
HPI - Abdominal Pain General: Chief Complaint: Abdominal Pain Stated Complaint: abd pain Time Seen by Provider: 10/07/23 18:03 History of Present Illness: 62-year-old female comes in today with complaints of right upper abdominal pain radiating to the right flank for the last 2 weeks. Patient appears nontoxic. Patient appears in mild pain at rest. Patient reports pain and nausea has increased over the last 2 days. Patient has a history of gallbladder removal and surgeries. Patient's medical history includes diabetes mellitus, NICKO, hyperlipidemia, seasonal allergies, CAD, gout. Patient sees Nette Morocho for her primary care. Patient was referred to the ER due to persistent worsening abdominal pain. Associated Symptoms: Reports nausea; Denies constipation, diarrhea, fever(s) and vomiting Review of Systems General: Reports: 10 or more systems reviewed and unremarkable except in HPI and below Const: Denies: fever(s) Card: Denies: chest pain Resp: Denies: dyspnea GI: Reports: abdominal pain and nausea; Denies: vomiting, diarrhea or constipation : Reports: flank pain; Denies: difficulty voiding Musc: Denies: back pain Skin/Breast: Denies: rash PFSH ED PFSH: Medical History Anxiety Cardiomyopathy in diseases classified elsewhere Chronic gout of right foot Controlled type 2 diabetes mellitus with hyperglycemia, with long-term current use of insulin Diabetes mellitus with hyperglycemia, with long-term current use of insulin Essential (primary) hypertension Hypersomnia Inflammatory arthritis Mixed hyperlipidemia 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 NICKO (obstructive sleep apnea) Radiculopathy, lumbar region Raised antibody titer White matter abnormality on MRI of brain Surgical History History of angioplasty History of section History of cholecystectomy History of colonoscopy History of lumpectomy of left breast History of shoulder surgery left 2021 History of tonsillectomy History of tubal ligation S/P LASIK surgery S/P rotator cuff surgery Family History Mother Cancer CAD (coronary artery disease) Father CAD (coronary artery disease) Social History Smoking and tobacco/nicotine status: former use of tobacco/nicotine Second hand smoke exposure: No Alcohol intake: current Alcohol intake frequency: holidays/special occasions only Substance/Drug Use: never Adopted: No Caregiver/support person: No Lives independently: Yes Household members: spouse Housing: House Marital status: Number of children: 5 service: No Do you think of yourself as: Straight/Heterosexual Current gender identity: Female Physical Exam Const: COMMON NORMALS: alert HENMT: COMMON NORMALS: normocephalic HEAD & SCALP: normocephalic Neck/C-Spine: COMMON NORMALS: full ROM Resp: COMMON NORMALS: normal respiratory effort and clear to auscultation bilaterally AUSCULTATION: clear to auscultation bilaterally Cardio: COMMON NORMALS: regular rate and regular rhythm RATE: regular rate RHYTHM: regular rhythm GI: COMMON NORMALS: Soft to palpation AUSCULTATION: Yes normoactive bowel sounds PALPATION: Yes Soft to palpation and Yes Tenderness to palpation present (GI) Details: RUQ : COMMON NORMALS: Yes no CVA tenderness BLADDER/KIDNEY EXAM: Yes no CVA tenderness Back/Pelvis: COMMON NORMALS: no CVA tenderness Extremity: COMMON NORMALS: normal to inspection and no pedal edema Neuro: SENSORIUM/ORIENTATION: Yes alert Skin: COMMON NORMALS: turgor normal GENERAL SKIN EXAM: turgor normal Course Vital Signs: Vital signs: Vital Signs Temperature 97.7 F 10/07/23 16:19 Pulse Rate 72 10/07/23 16:19 Respiratory Rate 15 10/07/23 16:19 Blood Pressure 112/69 10/07/23 16:19 Pulse Oximetry 99 10/07/23 16:19 Oxygen Delivery Me thod Room Air 10/07/23 16:19 MDM - Abdominal Pain Medical Decision Making 62-year-old female was referred to the ER for complaints of abdominal pain in the right upper quadrant radiating to the right flank starting approximately 2 weeks ago and worsening. Patient reports nausea but no fever. On exam patient has some muscle tightness in the right mid paraspinous muscles of the back, right upper quadrant abdominal tenderness, bowel sounds are normal, vital signs are normal. Differential diagnosis includes but not limited to constipation, pancreatitis, surgical adhesions, bowel obstruction, pyelonephritis, renal calculi, urinary tract infection. CBC and CMP were unremarkable. Urinalysis had blood in it. Lipase was normal. CT of the abdomen and pelvis showed no signs of infection showed also signs of a mobile cecum and enlarged bile duct. Reviewed exam with Dr. Montana regarding abnormals and lab and CT scan. He agreed with plan for patient to follow-up with surgeon for further evaluation regarding the mobile cecum and follow-up with primary care as needed. Also recommended patient return to the ED for worsening symptoms. This was relayed to patient who agreed with plan and recommendations for treatment. Lab Data 10/07/23 17:22 10/07/23 17:22 Labs/Radiology: Radiology Impressions Abdomen/Pelvis CT 10/07/23 18:10 IMPRESSION: 1. Compared to prior, there is new displacement of the cecum into the midline upper abdomen. No bowel dilation to suggest obstruction. 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 2. Patient is status post cholecystectomy. Compared to 2018, there is increased degree of common bile duct and intrahepatic bile duct dilation with abrupt tapering of the common bile duct distally, indeterminate clinical significance. No definite mass or choledocholithiasis. This could be further evaluated with MRCP, as clinically indicated. Laboratory Results WBC 10.18 10^3/uL (3.29-11.43) 10/07/23 17: RBC 5.02 10^6/uL (3.85-5.65) 10/07/23 17: Hgb 14.80 g/dL (11.27-16.99) 10/07/23 17: Hct 46.4 % (36-47) 10/07/23 17: MCV 92.4 fl (85-98) 10/07/23 17: MCH 29.5 pg (27-33) 10/07/23 17: MCHC 31.9 g/dL (30-55) 10/07/23 17: RDW 15.3 % (12.1-15.1) H 10/07/23 17: Plt Count 157 10^3/cmm (157-399) 10/07/23 17:22 MPV 11.8 fL (7.4-10.4) H 10/07/23 17: Neut % (Auto) 46.0 % 10/07/23 17: Lymph % (Auto) 43.3 % 10/07/23 17:22 [place] % (Auto) 6.2 % 10/07/23 17:22 Eos % (Auto) 3.6 % 10/07/23 17:22 Baso % (Auto) 0.6 % 10/07/23 17:22 Neut # (Auto) 4.68 10^3/uL (1.8-7.7) 10/07/23 17:22 Lymph # (Auto) 4.4 10^3/uL (0.8-4.8) 10/07/23 17:22 [place] # (Auto) 0.6 10^3/uL (0.2-0.9) 10/07/23 17:22 Eos # (Auto) 0.4 10^3/uL (0.0-0.8) 10/07/23 17:22 Baso # (Auto) 0.1 10^3/uL (0.0-0.1) 10/07/23 17: Nucleated RBC % (auto) 0 % 10/07/23 17: Nucleated RBCs # 0.0 /100WBC 10/07/23 17:22 Sodium 141 mmol/L (136-145) 10/07/23 17:22 Potassium 3.9 mmol/L (3.5-5.1) 10/07/23 17:22 Chloride 100 mmol/L (98-107) 10/07/23 17:22 Carbon Dioxide 30 mmol/L (22-29) H 10/07/23 17:22 Anion Gap 14.9 (5-19) 10/07/23 17:22 BUN 11 mg/dL (8-23) 10/07/23 17:22 Creatinine 0.7 mg/dL (0.5-0.9) 10/07/23 17:22 GFR Calculation 85.4 mL/min (90-130) L 10/07/23 17:22 Glucose 131 mg/dL (65-115) H 10/07/23 17:22 Calculated Osmolality 293 mOsm/kg (285-295) 10/07/23 17:22 Calcium 9.6 mg/dL (8.5-10.5) 10/07/23 17:22 Total Bilirubin 0.3 mg/dL (0.15-1.2) 10/07/23 17:22 AST 30 U/L (0-32) 10/07/23 17:22 ALT 25 U/L (0-33) 10/07/23 17:22 Alkaline Phosphatase 93 U/L (35-105) 10/07/23 17:22 Total Protein 7.7 g/dL (6.6-8.7) 10/07/23 17:22 Albumin 4.4 g/dL (3.5-5.2) 10/07/23 17: Globulin 3.3 g/dL (1.3-4.6) 10/07/23 17:22 Lipase 45 U/L (13-60) 10/07/23 17:22 Urine Color Yellow (Yellow) 10/07/23 18:00 Urine Appearance Clear (CLEAR) 10/07/23 18:00 Urine pH 6 (5-7) 10/07/23 18:00 Ur Specific [place] 1.015 (1.005-1.030) 10/07/23 18:00 Urine Protein Neg (Negative) 10/07/23 18:00 Urine Glucose (UA) 4+ (Normal) H 10/07/23 18:00 Urine Ketones Negative (Negative) 10/07/23 18:00 Urine Blood 2+ (Negative) H 10/07/23 18:00 Urine Nitrate Negative (Negative) 10/07/23 18:00 Urine Bilirubin Neg (Negative) 10/07/23 18:00 Urine Urobilinogen Norm mg/dL (Negative) 10/07/23 18:00 Ur Leukocyte Esterase Negative (Negative) 10/07/23 18:00 Urine RBC 5-10 /hpf (0-2) H 10/07/23 18:00 Urine WBC None /hpf (0-5) 10/07/23 18:00 Ur Squamous Epith Cells 0-4 /hpf (0-5) H 10/07/23 18:00 Amorphous Sediment Not Reportable 10/07/23 18:00 Urine Bacteria None /hpf (NONE) 10/07/23 18:00 Urine Mucus None /hpf 10/07/23 18:00 All radiology interpretation(s) finalized by discharge Discharge Plan Discharge Patient Disposition: Home Clinical Impression: Mobile cecum Abdominal pain Qualifiers: Abdominal location: right upper quadrant Qualified Code(s): R10.11 - Right upper quadrant pain Condition: Stable Prescriptions: No Action (DME) lancets [Fingerstix Lancets] Misc See Rx Instructions .ROUTE .MEDSUPPLY Qty: 200 5RF Rx Instructions: 4 times daily (DME) nebulizer accessories Kit See Rx Instructions .ROUTE .MEDSUPPLY Qty: 1 0RF Rx Instructions: daily oral tramadol 50 mg tablet 50 mg PO TID PRN (Reason: Pain) turmeric root extract 500 mg capsule 1,000 mg PO TID Rx Instructions: dose change magnesium hydroxide 400 mg (170 mg magnesium) tablet,chewable 400 mg PO DAILY pregabalin [Lyrica] 150 mg capsule 150 mg PO TID (DME) blood-glucose meter [Maltem ConsultingTouch Ultra2 Meter] Kit See Rx Instructions .Route Qty: 1 0RF Rx Instructions: use 3-4 times daily (DME) lancets [OneTouch Delica Plus Lancet] 33 gauge misc See Rx Instructions .Route Qty: 100 5RF Rx Instructions: use 3-4 times day doxepin 10 mg capsule 10 mg PO TID Qty: 270 0RF potassium chloride 20 mEq tablet extended release 20 meq PO BID Qty: 180 0RF insulin degludec [Tresiba FlexTouch U-200] 200 unit/mL (3 mL) insulin pen 42 unit SUBCUT DAILY fluticasone propionate [Flonase Allergy Relief] 50 mcg/actuation spray,suspension 1 spray intranasal DAILY PRN (Reason: allergy symptoms) Qty: 16 0RF Rx Instructions: administer into each nostril celecoxib 200 mg capsule 200 mg PO DAILY Ozempic 2 mg/dose (8 mg/3 mL) pen injector 2 mg SUBCUT .weekly Qty: 9 1RF atorvastatin 40 mg tablet 40 mg PO DAILY Qty: 90 1RF duloxetine 30 mg capsule,delayed release(DR/EC) 90 mg PO DAILY Qty: 270 1RF Jardiance 10 mg tablet 10 mg PO QAM Qty: 90 1RF estradiol [Estrace] 0.01 % (0.1 mg/gram) cream 2 g VAGINAL .2 times week 30 Days Qty: 126 1RF furosemide 40 mg tablet 40 mg PO BID Qty: 180 1RF insulin aspart U-100 [Novolog FlexPen U-100 Insulin] 100 unit/mL (3 mL) insulin pen See Rx Instructions SUBCUT TID Qty: 15 1RF Rx Instructions: 110-115=5U,116-120=7U,121-140=9U,141-160=11U,161-190=13U,191-210=15U,211-230=17 U,231-250=19U,251-270=21U,271-290=23U,291-310=25U allopurinol 300 mg tablet 300 mg PO BID Qty: 180 1RF carvedilol 6.25 mg tablet 6.25 mg PO QPM Qty: 90 1RF (DME) CPAP supplies See Rx Instructions .ROUTE .MEDSUPPLY Qty: 1 0RF Rx Instructions: As directed (DME) CPAP Qty: 1 0RF Rx Instructions: get items and send codes for signature (DME) Portable Nebulizer System Device See Rx Instructions .ROUTE .MEDSUPPLY Qty: 1 0RF Rx Instructions: daily (DME) OneTouch Ultra Test Strip See Rx Instructions .Route Qty: 200 5RF Rx Instructions: use 3-4 time day hydroxychloroquine 200 mg tablet See Rx Instructions PO .COMPLEX Qty: 135 1RF Rx Instructions: Alternate taking 1 tab today then 2 tabs tomorrow. PO; Discharge Orders: Discharge ED (Routine); Ordered 10/07/23 Ordered By: Jasson Burgos Referrals: Nette Morocho, EARLY YEARS TEACHER-C [Primary Care Provider] - Discharge Diet: Usual diet Discharge Activity: Increase activity as tolerated Patient Instructions: Abdominal Pain (ED) Activity Restrictions/Additional Instructions: Drink plenty of water and fluids. Start with a clear liquid diet until abdominal pain improves and then increase to a bland diet. Follow-up with primary care for further evaluation and treatment. Case management will contact you regarding follow-up with surgeon for further evaluation. Return to ED for worsening symptoms such as fever greater than 100.4, blood in vomit or stool, uncontrolled abdominal pain, or new concerns. Coding Level of Care Code ED House Manager for Angel Moscoso
--- NOTE | 2023-10-07 18:10 | CTR_ITS ---
PROCEDURE INFORMATION: Exam: CT Abdomen And Pelvis With Contrast Exam date and time: 10/07/2023 6:29 PM Age: 62 years old Clinical indication: Abdominal pain; Localized; Right; Prior surgery; Surgery date: 6+ months; Surgery type: Gb, c section; Additional info: Ruq pain, R flank pain, nausea, increasing pain TECHNIQUE: Imaging protocol: Computed tomography of the abdomen and pelvis with contrast. Radiation optimization: All CT scans at this facility use at least one of these dose optimization techniques: automated exposure control; mA and/or kV adjustment per patient size (includes targeted exams where dose is matched to clinical indication); or iterative reconstruction. Contrast material: OMNI 350; Contrast volume: 100 ml; Contrast route: INTRAVENOUS (IV); REPORTING DATA: Count of CT and Cardiac NM exams in prior 12 months: This patient has received 2 known CTs and 0 known cardiac nuclear medicine studies in the 12 months prior to the current study. COMPARISON: CT abdomen pelvis w con* [id number] 12/29/2017 3:45 PM RADIATION DOSE METRICS: Total DLP (mGy-cm): 495.53 FINDINGS: Liver: Unremarkable. Gallbladder and bile ducts: Cholecystectomy. Compared to prior, there is increased dilation of the intrahepatic and common bile ducts. Impression. Last. Pancreas: Mild prominence of the main pancreatic duct in the pancreatic head/neck. Spleen: Unremarkable. Adrenal glands: Unremarkable. Kidneys and ureters: No hydronephrosis or hydroureter. No renal or ureteral calculi. Stomach and bowel: Colonic diverticulosis without CT findings of acute diverticulitis. No bowel obstruction. Compared to prior, there is new displacement of the cecum into the midline upper abdomen, but without bowel dilation to suggest obstruction. Appendix: No evidence of appendicitis. Intraperitoneal space: Unremarkable. No free air. No significant fluid collection. Vasculature: Atherosclerosis. No aortic aneurysm. Lymph nodes: No enlarged lymph nodes. Urinary bladder: Unremarkable as visualized. Reproductive: Unremarkable as visualized. Bones/joints: No acute fracture. No aggressive osseous lesions. Soft tissues: Unremarkable. CT/CT abdomen pelvis w con* [id number] IMPRESSION: 1. Compared to prior, there is new displacement of the cecum into the midline upper abdomen. No bowel dilation to suggest obstruction. 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 2. Patient is status post cholecystectomy. Compared to 2018, there is increased degree of common bile duct and intrahepatic bile duct dilation with abrupt tapering of the common bile duct distally, indeterminate clinical significance. No definite mass or choledocholithiasis. This could be further evaluated with MRCP, as clinically indicated.
[2023-10-07 18:28] LABS: Add Urine Microscopic? YES; Bilirubin Urine Neg (Negative); Blood Urine 2+ (Negative); Glucose Urine UA 4+ (Normal); Ketones Urine Negative (Negative); Leukocyte Esterase Urine Negative (Negative); Nitrate Urine Negative (Negative); Protein Urine Neg (Negative); Specific Gravity, Urine 1.015 (1.005-1.030); Urine Appearance Clear (CLEAR); Urine Color Yellow (Yellow); Urobilinogen Urine Norm (Negative); pH Urine 6 (5-7)
[2023-10-07] MEDS: iohexol 350 mg/mL 500 mL Btl (per mL) IV (18:33)
[2023-10-07 18:35] LABS: Add Urine Culture? No; Squamous Epithelial Cell Urine 0-4 /hpf (0-5)
[2023-10-07 18:40] LABS: Lipase 45 U/L (13-60)
--- NOTE | 2023-10-09 08:45 | DCPLANNER ---
Message sent to gen surg for follow up on a abnormal CT: Mobile cecum syndrome.
== END 2023-10-07 20:02 | disposition home or self-care (01) ==
PROVIDERS: Physician Assistant; Emergency Provider Nurse Practitioner Family; PCP Nurse Practitioner
DX: R10.11 Right upper quadrant pain (principal); Q43.3 Congenital malformations of intestinal fixation; Z79.4 Long term (current) use of insulin; Z87.891 Personal history of nicotine dependence; I42.9 Cardiomyopathy, unspecified; E11.9 Type 2 diabetes mellitus without complications; I10 Essential (primary) hypertension; E78.2 Mixed hyperlipidemia
CPT/HCPCS: 36415; 74177; 80053; 81001; 83690; 85025; 99285; Q9967

== ENCOUNTER → 2023-10-15 08:47 | Outpatient (BNVA) | payer MEDICARE, OTHER, SELFPAY | PROVIDERS: PCP Nurse Practitioner; Referring Provider Nurse Practitioner Family; Visit Provider Surgery | DX: R10.9 Unspecified abdominal pain (principal); G89.29 Other chronic pain; R93.89 Abnormal findings on diagnostic imaging of other specified body structures | CPT/HCPCS: 80076; 99204 ==

== ENCOUNTER → 2023-10-31 08:49 | Outpatient (BNVA) | payer MEDICARE, OTHER, SELFPAY | PROVIDERS: PCP Nurse Practitioner; Visit Provider Nurse Practitioner | DX: E11.65 Type 2 diabetes mellitus with hyperglycemia (principal); Z79.4 Long term (current) use of insulin; I10 Essential (primary) hypertension | CPT/HCPCS: 80053; 80061; 83036; 85025 ==

== ENCOUNTER → 2023-11-06 12:57 | Outpatient (BNVA) | payer MEDICARE, OTHER, SELFPAY | PROVIDERS: PCP Nurse Practitioner; Visit Provider Internal Medicine Cardiovascular Disease | DX: E78.2 Mixed hyperlipidemia (principal); I10 Essential (primary) hypertension; F41.9 Anxiety disorder, unspecified; E11.65 Type 2 diabetes mellitus with hyperglycemia; Z79.4 Long term (current) use of insulin; G43.909 Migraine, unspecified, not intractable, without status migrainosus; G47.33 Obstructive sleep apnea (adult) (pediatric); R53.1 Weakness; Z87.891 Personal history of nicotine dependence | CPT/HCPCS: 99214 ==

== ENCOUNTER 2023-11-12 07:46 | Outpatient (CLI) | payer MEDICARE, OTHER, SELFPAY ==
--- NOTE | 2023-11-12 08:00 | MR_ITS ---
WS: [id number] MRI/MRCP OF THE ABDOMEN WITHOUT GADOLINIUM ENHANCEMENT TECHNIQUE: Coronal T2 Fase BH, Axial T2 Fase BH, Axial T2 FS BH, Zxial 3D Renner BH, Axial DWI BH, 2D MRCP Radial BH, 3D MRCP (Resp), and Axial 3D Dyn BH Post sequences. CLINICAL INFORMATION: chronic abdominal pain COMPARISON: CT 10/07/2023 FINDINGS: Prior cholecystectomy. Surgical clips degrade images due to susceptibility artifact. Dilatation of th e common bile duct measuring 11 mm at the pancreatic head. No evidence of pancreatic head mass. No ev idence of choledocholithiasis. Diffuse fatty infiltration of the liver. Normal portal vein and splenic vein. Mild hepatomegaly. Adre nal glands are normal. Normal GE junction. No hydronephrosis in either kidney. Impression: 1. Prior cholecystectomy. Surgical clips degrade some images with susceptibility artifact. 2. No evidence of choledocholithiasis. 3. Dilated common bile measuring 11 mm. 4. No evidence of pancreatic head mass. 5. No other significant changes from the prior studies
== END 2023-11-12 07:47 | disposition home or self-care (01) ==
LOC: RAD 07:46
PROVIDERS: PCP Nurse Practitioner; Visit Provider Surgery
DX: R10.9 Unspecified abdominal pain (principal); G89.29 Other chronic pain; Z90.49 Acquired absence of other specified parts of digestive tract
CPT/HCPCS: 74181

== ENCOUNTER → 2023-11-14 08:39 | Outpatient (BNVA) | payer MEDICARE, OTHER, SELFPAY | PROVIDERS: PCP Nurse Practitioner; Visit Provider Podiatrist Foot & Ankle Surgery | DX: B35.1 Tinea unguium (principal); L84 Corns and callosities; G62.9 Polyneuropathy, unspecified; E11.65 Type 2 diabetes mellitus with hyperglycemia; Z79.4 Long term (current) use of insulin; E11.42 Type 2 diabetes mellitus with diabetic polyneuropathy | CPT/HCPCS: 11057; 11721; 99203 ==

== ENCOUNTER → 2023-12-23 13:54 | Outpatient (BNVA) | payer MEDICARE, OTHER, SELFPAY | PROVIDERS: PCP Nurse Practitioner; Visit Provider Internal Medicine Rheumatology | DX: M19.90 Unspecified osteoarthritis, unspecified site (principal); R76.0 Raised antibody titer; R90.82 White matter disease, unspecified; R83.8 Other abnormal findings in cerebrospinal fluid; M77.01 Medial epicondylitis, right elbow; M77.02 Medial epicondylitis, left elbow; Z79.899 Other long term (current) drug therapy | CPT/HCPCS: 99214 ==

== ENCOUNTER → 2024-01-27 09:52 | Outpatient (BNVA) | payer MEDICARE, OTHER, SELFPAY | PROVIDERS: PCP Nurse Practitioner; Visit Provider Nurse Practitioner | DX: E11.65 Type 2 diabetes mellitus with hyperglycemia (principal); E11.9 Type 2 diabetes mellitus without complications; I10 Essential (primary) hypertension; Z79.899 Other long term (current) drug therapy; Z79.4 Long term (current) use of insulin | CPT/HCPCS: 80053; 81000; 82248; 83036; 85025; 86140 ==

== ENCOUNTER → 2024-01-30 11:48 | Outpatient (BNVA) | payer MEDICARE, OTHER, SELFPAY | PROVIDERS: PCP Nurse Practitioner; Visit Provider Nurse Practitioner | DX: E11.65 Type 2 diabetes mellitus with hyperglycemia (principal); I10 Essential (primary) hypertension; R20.2 Paresthesia of skin; Z79.4 Long term (current) use of insulin; Z79.899 Other long term (current) drug therapy; M19.90 Unspecified osteoarthritis, unspecified site | CPT/HCPCS: 82607; 84443 ==

== ENCOUNTER 2024-02-11 13:35 | Emergency (ER) | payer MEDICARE, OTHER, SELFPAY ==
[2024-02-11 13:41] VITALS: BP 174/76; PULSE 84; RESP 15; TEMP 37.1; O2SAT 99; BMI 27.9
--- NOTE | 2024-02-11 13:50 | XR_ITS ---
WS: [id number] Exam: XR chest 1V portable [id number] Date/Time of Exam: 02/11/2024 1:59 PM Reason For Exam: cp Comparison 02/15/2023 Findings: The lungs are clear and fully expanded. Costophrenic angles are sharp. No infiltrates. Bronchovascula r relief appears normal. Cardiac silhouette is unremarkable. Bony elements are intact. IMPRESSION: Unremarkable chest radiograph.
--- NOTE | 2024-02-11 13:50 | ECG_ITS ---
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 Measurements Intervals [place] Rate: 78 P: 67 W[place]: 148 QRS: 16 QRSD: 86 T: 58 QT: 358 QTc: 410 Interpretive Statements SINUS RHYTHM POSSIBLE LEFT ATRIAL ENLARGEMENT [-0.1mV P-WAVE IN V1/V2] SEPTAL MYOCARDIAL INFARCTION , OF INDETERMINATE AGE [40+ ms Q WAVE IN V1/V2] Compared to ECG 02/15/2023 22:21:59 Myocardial infarct finding now present Sinus tachycardia no longer present Electronically Signed On 02-12-2024 23:45:33 CDT by Emely Carlson M.D. [id number]
--- NOTE | 2024-02-11 13:52 | ED_ITS ---
HPI - Arrhythmia/Palpitations 2 General: Chief Complaint: Arrhythmia/Palpitations Stated Complaint: heart rate issues Time Seen by Provider: 02/11/24 13:47 Source: patient Mode of arrival: ambulatory Limitations: no limitations History of Present Illness: 63-year-old female states that last few days she has folic she has been having skipped beats and palpitations. States that she is felt like her heart is quivering at times. She denies any severe chest pain denies any nausea denies any worsening improving factors. 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 Raised antibody titer Inflammatory arthritis Diabetes mellitus with hyperglycemia, with long-term current use of insulin Chronic gout of right foot Radiculopathy, lumbar region Cardiomyopathy in diseases classified elsewhere NICKO (obstructive sleep apnea) Anxiety Essential (primary) hypertension Mixed hyperlipidemia Hypersomnia Surgical History History of shoulder surgery left 2021 S/P rotator cuff surgery S/P LASIK surgery History of angioplasty History of section History of tonsillectomy History of tubal ligation History of cholecystectomy History of lumpectomy of left breast History of colonoscopy Family History Mother Cancer CAD (coronary artery disease) Father CAD (coronary artery disease) Social History Smoking and tobacco/nicotine status: former use of tobacco/nicotine Second hand smoke exposure: No Alcohol intake: current Alcohol intake frequency: holidays/special occasions only Substance/Drug Use: never Adopted: No Caregiver/support person: No Lives independently: Yes Household members: spouse Housing: House Marital status: Number of children: 5 service: No Do you think of yourself as: Straight/Heterosexual Current gender identity: Female Physical Exam 2 Const: COMMON NORMALS: no acute distress, patient oriented x3 and healthy appearing HENMT: COMMON NORMALS: normocephalic and atraumatic HEAD & SCALP: n ormocephalic and atraumatic Eye: COMMON NORMALS: conjunctivae normal CONJUNCTIVA: Yes conjunctivae normal Neck/C-Spine: COMMON NORMALS: full ROM and supple Chest: COMMONS NORMALS: normal inspection of the chest and normal palpation of entire chest wall Resp: COMMON NORMALS: normal respiratory effort, No retractions, No use of accessory muscles and clear to auscultation bilaterally AUSCULTATION: clear to auscultation bilaterally Cardio: COMMON NORMALS: regular rate, regular rhythm and No murmurs present (Cardio) RATE: regular rate RHYTHM: regular rhythm Extremity: COMMON NORMALS: normal to inspection and full ROM Neuro: COMMON NORMALS: patient oriented x3, moves all extremities and no focal motor deficits Psych: COMMON NORMALS: mental status grossly normal, Normal thought process present and cooperative THOUGHT PROCESS: Normal thought process present Skin: COMMON NORMALS: no rashes or lesions noted and no wounds GENERAL SKIN EXAM: no rashes or lesions noted Course 2 Vital Signs: Vital signs: Vital Signs Temperature 98.7 F 02/11/24 13:41 Pulse Rate 80 02/11/24 15:00 Respiratory Rate 15 02/11/24 15:00 Blood Pressure 164/84 02/11/24 15:00 Pulse Oximetry 95 02/11/24 15:00 Oxygen Delivery Me thod Room Air 02/11/24 15:00 MDM - Arrhythmia/Palpitations Medical Decision Making Patient presents with palpitations she has been well-appearing here EKG and blood work here are all normal she is stable for discharge 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 Lab Data I reviewed the patient's lab results. 02/11/24 14:00 02/11/24 14:00 Laboratory Results WBC 9.92 10^3/uL (3.29-11.43) 02/11/24 14:00 RBC 5.63 10^6/uL (3.85-5.65) 02/11/24 14:00 Hgb 16.70 g/dL (11.27-16.99) 02/11/24 14:00 Hct 51.5 % (36-47) H 02/11/24 14:00 MCV 91.5 fl (85-98) 02/11/24 14:00 MCH 29.7 pg (27-33) 02/11/24 14:00 MCHC 32.4 g/dL (30-55) 02/11/24 14:00 RDW 14.6 % (12.1-15.1) 02/11/24 14:00 Plt Count 179 10^3/cmm (157-399) 02/11/24 14:00 MPV 11.8 fL (7.4-10.4) H 02/11/24 14:00 Neut % (Auto) 41.9 % 02/11/24 14:00 Lymph % (Auto) 49.6 % 02/11/24 14:00 [place] % (Auto) 5.9 % 02/11/24 14:00 Eos % (Auto) 1.7 % 02/11/24 14:00 Baso % (Auto) 0.7 % 02/11/24 14:00 Neut # (Auto) 4.15 10^3/uL (1.8-7.7) 02/11/24 14:00 Lymph # (Auto) 4.9 10^3/uL (0.8-4.8) H 02/11/24 14:00 [place] # (Auto) 0.6 10^3/uL (0.2-0.9) 02/11/24 14:00 Eos # (Auto) 0.2 10^3/uL (0.0-0.8) 02/11/24 14:00 Baso # (Auto) 0.1 10^3/uL (0.0-0.1) 02/11/24 14:00 Nucleated RBC % (auto) 0 % 02/11/24 14:00 Nucleated RBCs # 0.0 /100WBC 02/11/24 14:00 Sodium 140 mmol/L (136-145) 02/11/24 14:00 Potassium 3.5 mmol/L (3.5-5.1) 02/11/24 14:00 Chloride 98 mmol/L (98-107) 02/11/24 14:00 Carbon Dioxide 26 mmol/L (22-29) 02/11/24 14:00 Anion Gap 19.5 (5-19) H 02/11/24 14:00 BUN 11 mg/dL (8-23) 02/11/24 14:00 Creatinine 0.7 mg/dL (0.5-0.9) 02/11/24 14:00 GFR Calculation 85.1 mL/min (90-130) L 02/11/24 14:00 Glucose 131 mg/dL (65-115) H 02/11/24 14:00 Calculated Osmolality 291 mOsm/kg (285-295) 02/11/24 14:00 Calcium 9.6 mg/dL (8.5-10.5) 02/11/24 14:00 Total Bilirubin 0.4 mg/dL (0.15-1.2) 02/11/24 14:00 AST 25 U/L (0-32) 02/11/24 14:00 ALT 24 U/L (0-33) 02/11/24 14:00 Alkaline Phosphatase 155 U/L (35-105) H 02/11/24 14:00 Troponin T Baseline 10 ng/L (0-10) 02/11/24 14:00 Troponin T 120 Minute 8.51 ng/L (0-10) 02/11/24 15:59 Delta Troponin T -1.49 ABS# (0-10) L 02/11/24 15:59 Total Protein 8.2 g/dL (6.6-8.7) 02/11/24 14:00 Albumin 4.8 g/dL (3.5-5.2) 02/11/24 14:00 Globulin 3.4 g/dL (1.3-4.6) 02/11/24 14:00 Lipase 124 U/L (13-60) H 02/11/24 14:00 All radiology interpretation(s) finalized by discharge EKG Data EKG 1: I personally reviewed and interpreted this EKG as follows: EKG interpretation date: 02/11/24 EKG interpretation time: 13:55 Interpretation: nsr hr [address] or t wave abnormalities qrs 86 qtc 392 EKG 2: I personally reviewed and interpreted this EKG as follows: EKG interpretation date: 02/11/24 EKG interpretation time: 15:41 Interpretation: nsr hr [address] or t wave abnormalities qrs 92 qtc 402 Discharge Plan Discharge Patient Disposition: Home Clinical Impression: Palpitations Condition: Stable Prescriptions: No Action (DME) nebulizer accessories Kit See Rx Instructions .ROUTE .MEDSUPPLY Qty: 1 0RF Rx Instructions: daily oral tramadol 50 mg tablet 50 mg PO TID PRN (Reason: Pain) turmeric root extract 500 mg capsule 1,000 mg PO TID magnesium hydroxide 400 mg (170 mg magnesium) tablet,chewable 400 mg PO DAILY pregabalin [Lyrica] 150 mg capsule 150 mg PO TID (DME) blood-glucose meter [Transcast Mediauch Ultra2 Meter] Kit See Rx Instructions .Route Qty: 1 0RF Rx Instructions: use 3-4 times daily (DME) lancets [InfernoRed TechnologyTouch Delica Plus Lancet] 33 gauge misc See Rx Instructions .Route Qty: 100 5RF Rx Instructions: use 3-4 times day acetaminophen 500 mg tablet 1,000 mg PO BID PRN (Reason: Pain) fluticasone propionate [Flonase Allergy Relief] 50 mcg/actuation spray,suspension 1 spray intranasal DAILY PRN (Reason: allergy symptoms) Qty: 16 0RF Rx Instructions: administer into each nostril (DME) CPAP supplies See Rx Instructions .ROUTE .MEDSUPPLY Qty: 1 0RF Rx Instructions: As directed Tyrvaya 0.03 mg/spray spray, metered, non-aerosol 0.03 mg intranasal BID Rx Instructions: administer into each nostril; approximately 12 hours apart allopurinol 300 mg tablet 300 mg PO BID Qty: 180 1RF atorvastatin 40 mg tablet 40 mg PO DAILY Qty: 90 1RF (DME) OneTouch Ultra Test Strip See Rx Instructions .Route Qty: 200 5RF Rx Instructions: use 3-4 time day duloxetine 30 mg capsule,delayed release(DR/EC) 90 mg PO DAILY Qty: 270 1RF Jardiance 10 mg tablet 10 mg PO QAM Qty: 90 1RF estradiol [Estrace] 0.01 % (0.1 mg/gram) cream 2 g VAGINAL .2 times week 30 Days Qty: 126 1RF furosemide 40 mg tablet 40 mg PO BID Qty: 180 1RF insulin aspart U-100 [Novolog FlexPen U-100 Insulin] 100 unit/mL (3 mL) insulin pen See Rx Instructions SUBCUT TID Qty: 15 1RF Rx Instructions: BS 110-115=5U, 116-120=7U, 121-140=9U, 141-160=11U, 161-190=13U, 191-210=15U, 211-230=17U, 231-250=19U, 251-270=21U, 271-290=23U, 291-310=25U insulin degludec [Tresiba FlexTouch U-200] 200 unit/mL (3 mL) insulin pen 30 unit SUBCUT BID Qty: 27 1RF potassium chloride 20 mEq tablet extended release 20 meq PO BID Qty: 180 1RF Ozempic 2 mg/dose (8 mg/3 mL) pen injector 2 mg SUBCUT .weekly Qty: 9 1RF aripiprazole [Abilify] 2 mg tablet 2 mg PO DAILY Qty: 90 0RF (DME) Diabetic shoes with 3 inserts See Rx Instructions .Route .MEDSUPPLY Qty: 1 0RF Rx Instructions: As directed to the shoe guys (DME) CPAP Qty: 1 0RF Rx Instructions: get items and send codes for signature (DME) Portable Nebulizer System Device See Rx Instructions .ROUTE .MEDSUPPLY Qty: 1 0RF Rx Instructions: daily sulfasalazine 500 mg tablet 500 mg PO BID diclofenac sodium 1 % gel 2 g topical QID PRN (Reason: Pain) Rx Instructions: apply to affected area as needed Discharge Orders: Discharge ED (Routine); Ordered 02/11/24 Ordered By: Matt Huggins Referrals: Emely Carlson MD [Physician] - 1-3 days Nette Morocho, CASE MANAGEMENT RN-C [Primary Care Provider] - Discharge Diet: Advance as tolerated Discharge Activity: Resume usual activity Patient Instructions: Heart Palpitations (ED) Coding Level of Care Code ED Legal Editor for Angel Moscoso
--- NOTE | 2024-02-11 13:55 | PC.NURSE ---
Pt on bedside nuclear monitoring technician
[2024-02-11 14:07] VITALS: BP 163/84; PULSE 81; RESP 18; O2SAT 99
[2024-02-11 14:10] LABS: Basophils # 0.1 10^3/uL (0.0-0.1); Basophils % 0.7 %; Eosinophils # 0.2 10^3/uL (0.0-0.8); Eosinophils % 1.7 %; Hematocrit 51.5 % (36-47); Lymphocytes # 4.9 10^3/uL (0.8-4.8); Lymphocytes % 49.6 %; Mean Corpuscular HGB Conc 32.4 g/dL (30-55); Mean Corpuscular Hemoglobin 29.7 pg (27-33); Mean Corpuscular Volume 91.5 fl (85-98); Mean Platelet Volume 11.8 fL (7.4-10.4); Monocytes # 0.6 10^3/uL (0.2-0.9); Monocytes % 5.9 %; Neutrophils # 4.15 10^3/uL (1.8-7.7); Neutrophils % 41.9 %; Nucleated Red Blood Cells % 0 %; Platelet Count 179 10^3/cmm (157-399); Red Blood Count 5.63 10^6/uL (3.85-5.65); Red Cell Distribution Width 14.6 % (12.1-15.1); White Blood Count 9.92 10^3/uL (3.29-11.43)
[2024-02-11 14:27] LABS: Alanine Aminotransferase 24 U/L (0-33); Albumin Level 4.8 g/dL (3.5-5.2); Alkaline Phosphatase 155 U/L (35-105); Blood Urea Nitrogen 11 mg/dL (8-23); Calcium 9.6 mg/dL (8.5-10.5); Carbon Dioxide 26 mmol/L (22-29); Chloride 98 mmol/L (98-107); Creatinine Clr Calc Pharmacy 70.9413; Globulin 3.4 g/dL (1.3-4.6); Glomerular Filtration Rate 85.1 mL/min (90-130); Glucose 131 mg/dL (65-115); Lipase 124 U/L (13-60); Osmolality Calculated 291 mOsm/kg (285-295); Sodium 140 mmol/L (136-145); Total Bilirubin 0.4 mg/dL (0.15-1.2); Total Protein 8.2 g/dL (6.6-8.7)
[2024-02-11 14:30] VITALS: BP 154/82; PULSE 83; RESP 18; O2SAT 95
[2024-02-11 14:33] LABS: Troponin(5th) Baseline 10 ng/L (0-10)
[2024-02-11 14:35] LABS: Anion Gap 19.5 (5-19); Aspartate Amino Transferase 25 U/L (0-32); Potassium 3.5 mmol/L (3.5-5.1)
[2024-02-11 15:00] VITALS: BP 164/84; PULSE 80; RESP 15; O2SAT 95
--- NOTE | 2024-02-11 15:50 | ECG_ITS ---
[facility] Test Date: 2024-02-11 Pat Name: Deneen Anaya Department: Room: Gender: Female Operations Support Professionals: : 1960 Requested By: Matt Huggins Order Number: [id number] Steffany MD: Emely Carlson M.D. Measurements Intervals [place] Rate: 87 P: 68 ME: 143 QRS: 19 QRSD: 92 T: 55 QT: 358 QTc: 432 Interpretive Statements SINUS RHYTHM POSSIBLE LEFT ATRIAL ENLARGEMENT [-0.1mV P-WAVE IN V1/V2] NONSPECIFIC T-WAVE ABNORMALITY Compared to ECG 02/11/2024 13:55:25 T-wave abnormality now present Myocardial infarct finding no longer present Electronically Signed On 02-13-2024 0:01:13 CDT by Emely Carlson M.D. [id number]
[2024-02-11 16:57] LABS: Troponin 5 2HR 8.51 ng/L (0-10)
[2024-02-11 16:58] LABS: Troponin 5 2HR Delta -1.49 ABS# (0-10)
[2024-02-11 17:23] VITALS: BP 156/83; PULSE 80; RESP 14; O2SAT 96
--- NOTE | 2024-02-12 07:32 | DCPLANNER ---
Message sent to cardiology for follow up -heart palpitations
== END 2024-02-11 17:23 | disposition home or self-care (01) ==
PROVIDERS: Emergency Provider Emergency Medicine; PCP Nurse Practitioner
DX: R00.2 Palpitations (principal); Z79.4 Long term (current) use of insulin; Z87.891 Personal history of nicotine dependence; E11.9 Type 2 diabetes mellitus without complications; I11.9 Hypertensive heart disease without heart failure; I43 Cardiomyopathy in diseases classified elsewhere; E78.2 Mixed hyperlipidemia
CPT/HCPCS: 36415; 71045; 80053; 83690; 84484; 85025; 93005; 99285

== ENCOUNTER → 2024-04-14 09:17 | Outpatient (BNVA) | payer MEDICARE, OTHER, SELFPAY | PROVIDERS: PCP Nurse Practitioner; Visit Provider Nurse Practitioner | DX: E11.9 Type 2 diabetes mellitus without complications (principal); E78.2 Mixed hyperlipidemia | CPT/HCPCS: 80053; 80061; 82607; 83036; 84443; 85025 ==

== ENCOUNTER → 2024-04-20 12:54 | Outpatient (BNVA) | payer MEDICARE, OTHER, SELFPAY | PROVIDERS: PCP Nurse Practitioner; Visit Provider Internal Medicine Rheumatology | DX: M19.90 Unspecified osteoarthritis, unspecified site (principal); R76.0 Raised antibody titer; R90.82 White matter disease, unspecified; R83.8 Other abnormal findings in cerebrospinal fluid; M77.01 Medial epicondylitis, right elbow; M77.02 Medial epicondylitis, left elbow; Z79.899 Other long term (current) drug therapy | CPT/HCPCS: 99214 ==

== ENCOUNTER 2024-04-22 09:08 | Outpatient (CLI) | payer MEDICARE, OTHER, SELFPAY ==
--- NOTE | 2024-04-22 09:30 | MM_ITS ---
WS: [id number] BILATERAL SCREENING DIGITAL TOMOSYNTHESIS MAMMOGRAM WITH CAD HISTORY: Z12.31 - Encounter for screening mammogram for malignant ... COMPARISON: 03/12/2019, 09/09/2018 Bilateral CC and MLO views with tomosynthesis and synthetic mammography submitted. Computer aided det ection analyzed. Breast composition: The breasts are heterogeneously dense, which may obscure small masses. No suspici ous masses, microcalcifications or architectural distortion. Dense fibroglandular tissue upper outer quadrant LEFT breast. Several biopsy clips are noted within the dense soft tissue. Bilateral breast c alcifications are stable. No suspicious cluster of calcifications. MM/[place] [id number] IMPRESSION: BI-RADS: 2-Benign FOLLOW UP: 1 Year Follow-up
== END 2024-04-22 09:09 | disposition home or self-care (01) ==
LOC: RAD 09:08
PROVIDERS: PCP Nurse Practitioner; Visit Provider Nurse Practitioner
DX: Z12.31 Encounter for screening mammogram for malignant neoplasm of breast (principal); R92.333 Mammographic heterogeneous density, bilateral breasts; R92.323 Mammographic fibroglandular density, bilateral breasts; R92.1 Mammographic calcification found on diagnostic imaging of breast
CPT/HCPCS: 77063; 77067

== ENCOUNTER → 2024-06-22 09:08 | Outpatient (BNVA) | payer MEDICARE, OTHER, SELFPAY | PROVIDERS: PCP Nurse Practitioner; Visit Provider Nurse Practitioner | DX: E11.9 Type 2 diabetes mellitus without complications (principal) | CPT/HCPCS: 80053; 80061; 83036; 85025 ==

== ENCOUNTER → 2024-09-18 08:55 | Outpatient (BNVA) | payer MEDICARE, OTHER, SELFPAY | PROVIDERS: PCP Nurse Practitioner; Visit Provider Nurse Practitioner | DX: E11.9 Type 2 diabetes mellitus without complications (principal) | CPT/HCPCS: 80053; 80061; 81000; 83036; 85025 ==

== ENCOUNTER → 2024-11-02 08:42 | Outpatient (BNVA) | payer MEDICARE, OTHER, SELFPAY | PROVIDERS: PCP Nurse Practitioner; Visit Provider Internal Medicine Cardiovascular Disease | DX: I77.9 Disorder of arteries and arterioles, unspecified (principal); R09.89 Other specified symptoms and signs involving the circulatory and respiratory systems; I51.81 Takotsubo syndrome; E78.5 Hyperlipidemia, unspecified | CPT/HCPCS: 99214 ==

== ENCOUNTER 2024-11-20 12:06 | Outpatient (CLI) | payer MEDICARE, OTHER, SELFPAY ==
--- NOTE | 2024-11-20 12:45 | USCV_ITS ---
Deneen Anaya Age: 64 Gender: F : 1960 Exam Date: 11/20/2024 12:26 Ordering Phys: Fabricio Singleton MD ([email or web address]) Technologist: CT Exam Location: [facility] [place] Indication: Risk Factors: Previous Vascular Surgery: Right Brachial BP: / Left Brachial BP: / Right Left Velocity (cm/s) Spectral Plaque Velocity (cm/s) Spectral Plaque Syst/Diast Broadening Syst/Diast Broadening 92.80/ 20.70 Prox CCA 92.90 / 24.30 74.20/ 20.60 Mid CCA 85.30 / 23.90 72.10/ 20.20 Distal CCA 80.90 / 23.90 64.70/ 18.30 Prox ICA 69.50 / 15.30 76.70/ 23.40 Mid ICA 80.00 / 18.10 67.30/ 18.70 Distal ICA 73.90 / 21.70 94.30 ECA 89.60 1.10 ICA/CCA 1.00 Antegrade Vertebral Antegrade 32.60/ 9.20 cm/s 43.40/ 7.10 cm/s Bi Subclavian Bi 162.0 121.2 0 0 FINDINGS Comparison:. 01/08/23 No significant elevation of systolic or diastolic velocities. Waveforms are normal. Mild atherosclerosis at the bifurcations. Antegrade vertebral arteries. CONCLUSIONS Bilateral ICA stenosis less than 50%. No interval change in stenosis since prior exam. Dr. Kayce Benavidez DO (Electronically Signed) Final Date: 23 November 2024 13:19 S
== END 2024-11-20 12:07 | disposition home or self-care (01) ==
LOC: RAD 12:06
PROVIDERS: PCP Nurse Practitioner; Visit Provider Internal Medicine Cardiovascular Disease
DX: I77.9 Disorder of arteries and arterioles, unspecified (principal); R09.89 Other specified symptoms and signs involving the circulatory and respiratory systems
CPT/HCPCS: 93880

== ENCOUNTER 2024-11-30 08:55 | Outpatient (CLI) | payer MEDICARE, OTHER, SELFPAY ==
[2024-11-30 09:18] LABS: Basophils # 0.1 10^3/uL (0.0-0.1); Basophils % 0.5 %; Eosinophils # 0.3 10^3/uL (0.0-0.8); Eosinophils % 2.2 %; Hematocrit 45.6 % (36-47); Lymphocytes # 3.6 10^3/uL (0.8-4.8); Lymphocytes % 31.3 %; Mean Corpuscular HGB Conc 31.1 g/dL (30-55); Mean Corpuscular Hemoglobin 28.4 pg (27-33); Mean Corpuscular Volume 91.2 fl (85-98); Mean Platelet Volume 11.7 fL (7.4-10.4); Monocytes # 0.5 10^3/uL (0.2-0.9); Monocytes % 4.7 %; Neutrophils # 6.95 10^3/uL (1.8-7.7); Neutrophils % 60.9 %; Nucleated Red Blood Cells % 0 %; Platelet Count 161 10^3/cmm (157-399); White Blood Count 11.42 10^3/uL (3.29-11.43)
[2024-11-30 09:38] LABS: Alanine Aminotransferase 21 U/L (0-33); Alkaline Phosphatase 138 U/L (35-105); Blood Urea Nitrogen 15 mg/dL (8-23); Calcium 9.4 mg/dL (8.5-10.5); Carbon Dioxide 23 mmol/L (22-29); Chloride 98 mmol/L (98-107); Cholesterol 142 mg/dL (0-200); Globulin 3.4 g/dL (1.3-4.6); Glomerular Filtration Rate 101.3 mL/min (90-130); Glucose 121 mg/dL (65-115); HDL Cholesterol 43 mg/dL (60-100); LDL Cholesterol Calculated 53 mg/dL (50-129); LDL HDL Ratio 1.23 RATIO (0.00-3.22); Osmolality Calculated 286 mOsm/kg (285-295); Sodium 137 mmol/L (136-145); Total Bilirubin 0.3 mg/dL (0.15-1.2); Total Protein 7.4 g/dL (6.6-8.7); Triglycerides 232 mg/dL (0-150)
[2024-11-30 09:45] LABS: Aspartate Amino Transferase 21 U/L (0-32)
[2024-11-30 10:26] LABS: Estmated Average Glucose 137; Hemoglobin A1C 6.4 % (4.0-6.0)
== END 2024-11-30 08:56 | disposition home or self-care (01) ==
LOC: LAB 08:57
PROVIDERS: PCP Nurse Practitioner; Visit Provider Nurse Practitioner
DX: E11.9 Type 2 diabetes mellitus without complications (principal)
CPT/HCPCS: 36415; 80053; 80061; 83036; 85025

== ENCOUNTER 2025-02-19 08:42 | Outpatient (CLI) | payer MEDICARE, OTHER, SELFPAY ==
[2025-02-19 09:09] LABS: Bacteria Urine None Seen /hpf; Hyaline Casts Urine 1.21 /lpf; RBC Urine 0-2 /hpf (0-2); Squamous Epithelial Cell Urine 0-5 /hpf (0-5); WBC Urine 0-5 /hpf (0-5)
[2025-02-19 09:18] LABS: Add Urine Microscopic? YES; Bilirubin Urine Neg (Negative); Blood Urine Neg (Negative); Glucose Urine UA 4+ (Normal); Ketones Urine Negative (Negative); Leukocyte Esterase Urine Negative (Negative); Nitrate Urine Negative (Negative); Protein Urine Neg (Negative); Urine Appearance Clear (CLEAR); Urine Color Yellow (Yellow); Urobilinogen Urine Neg (Negative); pH Urine 6 (5-7)
[2025-02-19 09:18] LABS: Alanine Aminotransferase 42 U/L (0-33); Albumin Level 4.4 g/dL (3.5-5.2); Alkaline Phosphatase 141 U/L (35-105); Anion Gap 14.7 (5-19); Aspartate Amino Transferase 35 U/L (0-32); Blood Urea Nitrogen 13 mg/dL (8-23); Carbon Dioxide 28 mmol/L (22-29); Chloride 102 mmol/L (98-107); Chol HDL Ratio 3.75 mg/dL (0.0-4.40); Cholesterol 150 mg/dL (0-200); Globulin 3.4 g/dL (1.3-4.6); Glomerular Filtration Rate 101.3 mL/min (90-130); Glucose 124 mg/dL (65-115); HDL Cholesterol 40 mg/dL (60-100); LDL Cholesterol Calculated 75 mg/dL (50-129); Osmolality Calculated 294 mOsm/kg (285-295); Potassium 3.7 mmol/L (3.5-5.1); Sodium 141 mmol/L (136-145); Total Bilirubin 0.5 mg/dL (0.15-1.2); Total Protein 7.8 g/dL (6.6-8.7); Triglycerides 176 mg/dL (0-150); Uric Acid 1.3 mg/dL (2.4-5.7); VLDL Cholestrol Calculation 35 mg/dL (0-30)
[2025-02-19 09:28] LABS: Estmated Average Glucose 151; Hemoglobin A1C 6.9 % (4.0-6.0)
== END 2025-02-19 08:43 | disposition home or self-care (01) ==
LOC: LAB 08:43
PROVIDERS: PCP Nurse Practitioner; Visit Provider Nurse Practitioner
DX: E11.65 Type 2 diabetes mellitus with hyperglycemia (principal); Z79.4 Long term (current) use of insulin; M1A.0710 Idiopathic chronic gout, right ankle and foot, without tophus (tophi)
CPT/HCPCS: 36415; 80053; 80061; 81001; 83036; 84550

== ENCOUNTER → 2025-03-10 08:56 | Outpatient (BNVA) | payer MEDICARE, OTHER, SELFPAY | PROVIDERS: PCP Nurse Practitioner; Referring Provider Nurse Practitioner; Visit Provider Psychiatry & Neurology Neurology | DX: R25.1 Tremor, unspecified (principal); R93.0 Abnormal findings on diagnostic imaging of skull and head, not elsewhere classified; I65.22 Occlusion and stenosis of left carotid artery | CPT/HCPCS: 36415; 82306; 82607; 82746; 83090; 83735; 83921; 85613; 85651; 85730; 86140; 86146; 86147; 86160; 86162; 86235; 86255; 86376; 86431; 99203 ==

== ENCOUNTER 2025-03-12 08:58 | Outpatient (CLI) | payer MEDICARE, OTHER, SELFPAY ==
--- NOTE | 2025-03-12 09:30 | MR_ITS ---
WS: [id number] MRI BRAIN WITH AND WITHOUT CONTRAST HISTORY: I63.9 - Cerebral infarction, unspecified COMPARISON: 02/13/2023 TECHNIQUE: Multiplanar imaging performed through the brain with MultiHance 14 ml's IV. No acute infarct. Mild cerebral and cerebellar atrophy. There is extensive T2 and FLAIR signal hyperintensity throughout the white matter. Partially confluent white matter disease and subcortical lesions. Mild progression since 02/13/2023. No large territory infarct. No susceptibility artifacts or prior lacunar infarcts. Ventricles and extra-axial spaces are normal. Clivus and pituitary gland are normal. Visualized posterior fossa and brainstem are also normal. Postcontrast images are negative for masses or vascular malformations. Dural venous sinuses are normal. Paranasal sinuses: Well aerated with no significant disease. Mastoid air cells: Normal. Calvarium and scalp: Normal. MR/MR head wo/w con [id number] IMPRESSION: 1. No acute infarct, hemorrhage or mass. 2. Extensive white matter changes as previously described with mild progressio n since 2022. More than typically noted for small vessel microvascular disease in this age group. 3. Minimal cerebral and cerebellar atrophy.
[2025-03-12] MEDS: gadobenate dimeglumine 20 mL vial IV (10:14)
== END 2025-03-12 08:59 | disposition home or self-care (01) ==
PROVIDERS: PCP Nurse Practitioner; Visit Provider Psychiatry & Neurology Neurology
DX: I63.9 Cerebral infarction, unspecified (principal); R93.0 Abnormal findings on diagnostic imaging of skull and head, not elsewhere classified
CPT/HCPCS: 36415; 70553; 82306; 82607; 82746; 83090; 83735; 83921; 85613; 85651; 85730; 86140; 86146; 86147; 86160; 86162; 86235; 86255; 86376; 86431

== ENCOUNTER 2025-03-23 07:52 | Outpatient (CLI) | payer MEDICARE, OTHER, SELFPAY ==
--- NOTE | 2025-03-23 08:00 | CT_ITS ---
WS: [id number] CTA HEAD AND NECK TECHNIQUE: Contrast enhanced CTA of the head and neck with coronal and sagittal reformatted images and maximum intensity projection (MIP) images. NASCET criteria utilized. CLINICAL INFORMATION: R25.1 - Tremor, unspecified COMPARISON: CTA 02/16/2023 DLP: 1096.[address] scans at [facility] use at least one of these dose optimization techniques: automated exposure control; mA and/or kV adjustment per patient size (includes targeted exams where dose is matched to clinical indication); or iterative reconstruction. FINDINGS: Mild stenosis LEFT common carotid artery origin and brachiocephalic origin unchanged. RIGHT: RIGHT common carotid artery is patent. No significant RIGHT ICA stenosis. RIGHT ICA is patent to the skull base. LEFT: LEFT common carotid artery is patent. Moderate atheromatous plaque LEFT carotid bulb. LEFT ICA stenosis measures 33%. LEFT ICA is patent to the skull base. INTRACRANIAL CTA: Both vertebral arteries are patent. LEFT vertebral artery originates from the aortic arch. Proximal basilar artery is patent. 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 Normal vascularity to the SENIOR COMPLIANCE OFFICER territory bilaterally. No evidence of proximal flow-limiting stenosis. Both ICAs are patent at the skull base. Cavernous carotid calcification. Normal vascularity to the HANNAH and MCA territories bilaterally. No evidence of proximal flow-limiting stenosis. Patent anterior communicating artery. Small LEFT A1 segment. Moderate spondylitic changes cervical spine. Disc osteophyte complex C6-7 with mild central canal stenosis. CT/CT angio headneck* [id number] IMPRESSION: 1. No significant RIGHT ICA stenosis. 2. LEFT ICA stenosis 33%. 3. Both vertebral arteries are patent. LEFT vertebral artery originates from t he aortic arch. Aortic calcification. 4. Overall no significant changes since 2022
[2025-03-23] MEDS: iohexol 350 mg/mL 500 mL Btl (per mL) IV (08:42)
== END 2025-03-23 07:53 | disposition home or self-care (01) ==
PROVIDERS: PCP Nurse Practitioner; Visit Provider Psychiatry & Neurology Neurology
DX: R25.1 Tremor, unspecified (principal); I65.22 Occlusion and stenosis of left carotid artery; R93.0 Abnormal findings on diagnostic imaging of skull and head, not elsewhere classified; M47.892 Other spondylosis, cervical region; M25.78 Osteophyte, vertebrae; M48.02 Spinal stenosis, cervical region; I70.0 Atherosclerosis of aorta
CPT/HCPCS: 70496; 70498

== ENCOUNTER 2025-04-23 10:52 | Outpatient (CLI) | payer MEDICARE, OTHER, SELFPAY ==
--- NOTE | 2025-04-23 11:00 | MM_ITS ---
WS: [id number] BILATERAL SCREENING DIGITAL TOMOSYNTHESIS MAMMOGRAM WITH CAD HISTORY: Z12.31 - Encounter for screening mammogram for malignant ... COMPARISON: 04/22/2024, 03/12/2019, 09/09/2018 Bilateral CC and MLO views with tomosynthesis and synthetic mammography submitted. Computer aided detection analyzed. Breast composition: The breasts are heterogeneously dense, which may obscure small masses. No suspicious masses, microcalcifications or architectural distortion. Numerous bilateral benign calcifications. 3 mm nodule with long-term stability in the central LEFT breast. Biopsy clips noted within the LEFT breast. MM/MM scr BI tomosynthesis [id number] IMPRESSION: BI-RADS: 2 - Benign FOLLOW UP: 1 Year Follow-up
== END 2025-04-23 10:53 | disposition home or self-care (01) ==
PROVIDERS: PCP Nurse Practitioner; Visit Provider Nurse Practitioner
DX: Z12.31 Encounter for screening mammogram for malignant neoplasm of breast (principal); R92.333 Mammographic heterogeneous density, bilateral breasts; R92.1 Mammographic calcification found on diagnostic imaging of breast; N64.89 Other specified disorders of breast
CPT/HCPCS: 77063; 77067

== ENCOUNTER 2025-05-13 10:15 | Outpatient (CLI) | payer MEDICARE, OTHER, SELFPAY ==
[2025-05-13 11:47] LABS: Basophils # 0.1 10^3/uL (0.0-0.1); Basophils % 0.7 %; Eosinophils # 0.2 10^3/uL (0.0-0.8); Eosinophils % 2.3 %; Hematocrit 46.8 % (36-47); Lymphocytes # 3.8 10^3/uL (0.8-4.8); Lymphocytes % 50.5 %; Mean Corpuscular HGB Conc 31.6 g/dL (30-55); Mean Corpuscular Hemoglobin 28.1 pg (27-33); Mean Corpuscular Volume 88.8 fl (85-98); Mean Platelet Volume 12.2 fL (7.4-10.4); Monocytes # 0.5 10^3/uL (0.2-0.9); Monocytes % 6.5 %; Neutrophils # 3.03 10^3/uL (1.8-7.7); Nucleated Red Blood Cells % 0 %; Platelet Count 152 10^3/cmm (157-399); Red Blood Count 5.27 10^6/uL (3.85-5.65); White Blood Count 7.55 10^3/uL (3.29-11.43)
[2025-05-13 12:04] LABS: Estmated Average Glucose 131; Hemoglobin A1C 6.2 % (4.0-6.0)
[2025-05-13 12:05] LABS: Alanine Aminotransferase 21 U/L (0-33); Albumin Level 4.4 g/dL (3.5-5.2); Alkaline Phosphatase 123 U/L (35-105); Anion Gap 17.9 (5-19); Aspartate Amino Transferase 26 U/L (0-32); Blood Urea Nitrogen 9 mg/dL (8-23); Calcium 9.5 mg/dL (8.5-10.5); Carbon Dioxide 27 mmol/L (22-29); Chloride 100 mmol/L (98-107); Chol HDL Ratio 3.09 mg/dL (0.0-4.40); Cholesterol 139 mg/dL (0-200); Globulin 3.6 g/dL (1.3-4.6); Glomerular Filtration Rate 84.8 mL/min (90-130); Glucose 90 mg/dL (65-115); HDL Cholesterol 45 mg/dL (60-100); LDL Cholesterol Calculated 71 mg/dL (50-129); LDL HDL Ratio 1.58 RATIO (0.00-3.22); Osmolality Calculated 290 mOsm/kg (285-295); Potassium 3.9 mmol/L (3.5-5.1); Sodium 141 mmol/L (136-145); Total Bilirubin 0.4 mg/dL (0.15-1.2); Triglycerides 113 mg/dL (0-150)
== END 2025-05-13 10:16 | disposition home or self-care (01) ==
LOC: LAB 10:18
PROVIDERS: PCP Nurse Practitioner; Visit Provider Nurse Practitioner
DX: Z79.4 Long term (current) use of insulin (principal); E11.65 Type 2 diabetes mellitus with hyperglycemia; E78.2 Mixed hyperlipidemia; I10 Essential (primary) hypertension
CPT/HCPCS: 36415; 80053; 80061; 83036; 85025

== ENCOUNTER → 2025-05-25 10:06 | Outpatient (BNVA) | payer MEDICARE, OTHER, SELFPAY | PROVIDERS: PCP Nurse Practitioner; Referring Provider Psychiatry & Neurology Neurology; Visit Provider Internal Medicine Rheumatology | DX: M19.90 Unspecified osteoarthritis, unspecified site (principal); R76.0 Raised antibody titer; R90.82 White matter disease, unspecified; R83.8 Other abnormal findings in cerebrospinal fluid; M77.01 Medial epicondylitis, right elbow; M77.02 Medial epicondylitis, left elbow; Z79.899 Other long term (current) drug therapy | CPT/HCPCS: 99214 ==

== ENCOUNTER 2025-08-17 08:45 | Outpatient (CLI) | payer MEDICARE, OTHER, SELFPAY ==
[2025-08-17 10:41] LABS: Estmated Average Glucose 137; Hemoglobin A1C 6.4 % (4.0-6.0)
[2025-08-17 10:47] LABS: Alanine Aminotransferase 46 U/L (0-33); Albumin Level 4.4 g/dL (3.5-5.2); Alkaline Phosphatase 142 U/L (35-105); Blood Urea Nitrogen 8 mg/dL (8-23); Calcium 9.7 mg/dL (8.5-10.5); Carbon Dioxide 28 mmol/L (22-29); Chloride 101 mmol/L (98-107); Globulin 3.1 g/dL (1.3-4.6); Glucose 147 mg/dL (65-115); Osmolality Calculated 295 mOsm/kg (285-295); Sodium 142 mmol/L (136-145); Total Protein 7.5 g/dL (6.6-8.7)
[2025-08-17 10:50] LABS: Anion Gap 17.2 (5-19); Aspartate Amino Transferase 40 U/L (0-32); Potassium 4.2 mmol/L (3.5-5.1)
== END 2025-08-17 08:46 | disposition home or self-care (01) ==
LOC: LAB 08:48
PROVIDERS: PCP Nurse Practitioner; Visit Provider Nurse Practitioner
DX: E11.9 Type 2 diabetes mellitus without complications (principal)
CPT/HCPCS: 36415; 80053; 83036

== ENCOUNTER 2025-08-26 13:14 | Outpatient (CLI) | payer MEDICARE, OTHER, SELFPAY ==
--- NOTE | 2025-08-26 13:30 | CTR_ITS ---
PROCEDURE INFORMATION: Exam: CT Neck With Contrast Exam date and time: 08/26/2025 1:27 PM Age: 64 years old Clinical indication: Enlarged lymph nodes; Generalized; Enlarged lymph node lt neck x 3 weeks; Additional info: R59.9 - enlarged lymph nodes, unspecified TECHNIQUE: Imaging protocol: Computed tomography of the neck with contrast. Radiation optimization: All CT scans at this facility use at least one of these dose optimization techniques: automated exposure control; mA and/or kV adjustment per patient size (includes targeted exams where dose is matched to clinical indication); or iterative reconstruction. Contrast material: OMNI 350; Contrast volume: 80 ml; Contrast route: INTRAVENOUS (IV); COMPARISON: CT angio headneck* [id number] 03/23/2025 8:34 AM RADIATION DOSE METRICS: Total DLP (mGy-cm): 140.61 FINDINGS: Salivary glands: Normal. Glands are normal in size. Oral cavity: Unremarkable. Pharynx: Nasopharynx, oropharynx and hypopharynx are unremarkable. Larynx: Unremarkable. Epiglottis is normal. Thyroid: Right thyroid nodule measuring up to 0.5 cm. The thyroid gland would be better assessed with thyroid ultrasound if clinically warranted. Trachea: Visualized upper trachea is unremarkable. Lungs: Lung apices are unremarkable. Lymph nodes: No cervical lymphadenopathy. Bones/joints: No acute bony abnormality. Degenerative changes of the cervical spine. Soft tissues: At the site of the palpable lump marked with a skin marker in the left neck, no underlying mass lesion or fluid collection is identified. CT/CT neck w con* [id number] IMPRESSION: 1. At the site of the palpable lump marked with a skin marker in the left neck, no underlying mass lesion or fluid collection is identified. No cervical lymphadenopathy. Recommend clinical correlation and follow-up imaging as clinically warranted. 2. Right thyroid nodule. The thyroid gland would be better assessed with thyroid ultrasound if clinically warranted. COMMENTS: Consistent with the [employer]'s Incidental Findings Committee white paper (J Am Kim Radiol 2015): In patients aged 35 years and older with an incidental thyroid nodule equal to or greater than 1.[address], MRI or extrathyroidal US, further evaluation with dedicated thyroid US is recommended for patients with normal life expectancy and without comorbidities. For smaller nodules without suspicious features, no further evaluation or follow up is recommended.
[2025-08-26] MEDS: iohexol 350 mg/mL 500 mL Btl (per mL) IV (13:35)
== END 2025-08-26 13:15 | disposition home or self-care (01) ==
LOC: RAD 13:15
PROVIDERS: PCP Nurse Practitioner; Visit Provider Nurse Practitioner
DX: R59.9 Enlarged lymph nodes, unspecified (principal); E04.1 Nontoxic single thyroid nodule; M47.812 Spondylosis without myelopathy or radiculopathy, cervical region
CPT/HCPCS: 70491

== ENCOUNTER → 2025-08-31 09:03 | Outpatient (BNVA) | payer MEDICARE, OTHER, SELFPAY | PROVIDERS: PCP Nurse Practitioner; Visit Provider Podiatrist Foot & Ankle Surgery | DX: M79.671 Pain in right foot (principal); M79.672 Pain in left foot; E11.65 Type 2 diabetes mellitus with hyperglycemia; Z79.4 Long term (current) use of insulin; L85.9 Epidermal thickening, unspecified; B35.1 Tinea unguium; L84 Corns and callosities; G62.9 Polyneuropathy, unspecified | CPT/HCPCS: 17110; 73630; 99213 ==

== ENCOUNTER 2025-09-15 10:23 | Outpatient (CLI) | payer MEDICARE, OTHER, SELFPAY ==
--- NOTE | 2025-09-15 10:30 | USR_ITS ---
PROCEDURE INFORMATION: Exam: US Soft Tissue Head and Neck, Thyroid Exam date and time: 09/15/2025 10:33 AM Age: 64 years old Clinical indication: Condition or disease; Thyroid disorder; Goiter, non-toxic; Type not specified; Additional info: E04.9 - nontoxic goiter, unspecified TECHNIQUE: Imaging protocol: Real-time ultrasound scan of the neck with image documentation. Exam focused on the thyroid. COMPARISON: CT neck w con* [id number] 08/26/2025 1:27 PM FINDINGS: Right thyroid lobe: The right lobe measures 4 x 1.7 x 1.2 cm. Right lobe echogenicity is within normal limits. Right lobe nodule 1: Mid, 8 x 8 x 8 mm, solid, hypoechoic, wider than tall, no calcifications, TR 4. Left thyroid lobe: Left lobe measures 3.8 x 1.4 x 0.9 cm. Left lobe echogenicity is normal. No left lobe nodules. Isthmus: The isthmus measures 3 mm. Other findings: No cervical javier enlargement. US/US thyroid [id number] IMPRESSION: Small right lobe thyroid nodule requiring no sonographic follow-up.
== END 2025-09-15 10:24 | disposition home or self-care (01) ==
LOC: RAD 10:26
PROVIDERS: PCP Nurse Practitioner; Visit Provider Nurse Practitioner
DX: E04.9 Nontoxic goiter, unspecified (principal); E04.1 Nontoxic single thyroid nodule
CPT/HCPCS: 76536

== ENCOUNTER → 2025-10-28 16:15 | Outpatient (BNVA) | payer MEDICARE, OTHER, SELFPAY | PROVIDERS: PCP Nurse Practitioner; Visit Provider Internal Medicine Cardiovascular Disease | DX: I65.22 Occlusion and stenosis of left carotid artery (principal); I10 Essential (primary) hypertension; E78.2 Mixed hyperlipidemia; E11.65 Type 2 diabetes mellitus with hyperglycemia; Z51.81 Encounter for therapeutic drug level monitoring; Z79.01 Long term (current) use of anticoagulants | CPT/HCPCS: 99214 ==

== ENCOUNTER → 2025-11-02 08:57 | Outpatient (BNVA) | payer MEDICARE, OTHER, SELFPAY | PROVIDERS: PCP Nurse Practitioner; Visit Provider Podiatrist Foot & Ankle Surgery | DX: B35.1 Tinea unguium (principal); L84 Corns and callosities; G62.9 Polyneuropathy, unspecified; E11.65 Type 2 diabetes mellitus with hyperglycemia; Z79.4 Long term (current) use of insulin; Q82.8 Other specified congenital malformations of skin | CPT/HCPCS: 99213 ==